=== PATIENT | male | born 1955 | race Caucasian/White ===

== ENCOUNTER 2017-12-22 11:20 | Emergency (ER) | payer OTHER ==
--- NOTE | 2017-12-22 12:23 | UC ---
Skin Complaint HPI - HPI Summary HPI Summary: 62 yo male presents with cat bite to left index finger. He tells me that he was bitten last night by his cat when trying to move boxes around the house. Today noticed swelling and redness on the finger. Cat is UTD on vaccines. Pt believes his tetanus was within the last 10 years. Denies fever, chills, numbness, tingling. - History of Current Complaint Time Seen by Provider: 12/22/17 12:23 Stated Complaint: CAT BITE Hx Obtained From: Patient Onset/Duration: Sudden Onset Skin Exposure Onset/Duration: Hours Ago Timing: Constant Onset Severity: Mild Current Severity: Mild Pain Intensity: 3 Pain Scale Used: 0-10 Numeric - Allergy/Home Medications Allergies/Adverse Reactions: Allergies Allergy/AdvReac Type Severity Reaction Status Date / Time No Known Allergies Allergy Verified 12/22/17 12:33 Home Medications: Home Medications Naproxen Sodium [Naproxen 220 mg] 220 mg PO ONCE PRN 12/22/17 [History Confirmed 12/22/17] Rosuvastatin Calcium [Crestor] 20 mg PO BEDTIME 12/22/17 [History Confirmed ] Review of Systems Constitutional: Negative Skin: Other - Cat bite left index finger Respiratory: Negative Cardiovascular: Negative Neurovascular: Negative Musculoskeletal: Negative Neurological: Negative Psychological: Negative All Other Systems Reviewed And Are Negative: Yes PMH/Surg Hx/FS Hx/Imm Hx Previously Healthy: Yes Endocrine History: Dyslipidemia Cardiovascular History: Hypertension Respiratory History: COPD, Asthma - Surgical History Surgical History: Yes Surgery Procedure, Year, and Place: SPINAL FUSION C5,6. 2 SINUS SX. FX R HAND. VASECTOMY - Family History Known Family History: Positive: Cardiac Disease - Social History Occupation: Employed Full-time Lives: With Family Alcohol Use: "one to two ... nightly" Substance Use Type: None Smoking Status (MU): Never Smoked Tobacco Physical Exam - Summary Physical Exam Summary: GENERAL: NAD. WDWN. No pain distress. SKIN: Left index finger: at the DIP there are 3 small puncture wounds with moderate edema and mild erythema. Mild TTP. No streaking, bleeding, or drainage. NECK: Supple. Nontender. No lymphadenopathy. CHEST: No accessory muscle use. Breathing comfortably and in no distress. CV: RRR. Without m/r/g. MSK: Left index finger: FROM. NEURO: Alert. CN II-XII grossly intact. PSYCH: Age appropriate behavior. Triage Information Reviewed: Yes Course/Dx - Course Course Of Treatment: Cat bite left index finger. Rx for augmentin. Warm soaks and apply ice - Diagnoses Provider Diagnoses: Cat bite left index finger Discharge - Sign-Out/Discharge Documenting (check all that apply): Discharge/Admit/Transfer - Discharge Plan Condition: Stable Disposition: HOME Prescriptions: Amoxicillin/Clavulanate TAB* [Augmentin TAB 875*] 875 mg PO BID #14 tab Patient Education Materials: Animal Bite (ED) Referrals: Mauri Randhawa MD [Primary Care Provider] - Additional Instructions: If you develop a fever, shortness of breath, chest pain, new or worsening symptoms - please call your PCP or go to the ED. 1) If you notice the swelling or redness of your finger worsen - please call or return to the Urgent Care. - Billing Disposition and Condition Condition: STABLE Disposition: HOME
[2017-12-22 12:33] VITALS: BP 122/61
== END 2017-12-22 12:50 | disposition home or self-care (01) ==
LOC: UCCORT 11:20
DX: S61.251A Open bite of left index finger without damage to nail, initial encounter (principal); W55.01XA Bitten by cat, initial encounter; Y93.9 Activity, unspecified; Y92.9 Unspecified place or not applicable; I10 Essential (primary) hypertension; E78.5 Hyperlipidemia, unspecified
CPT/HCPCS: 99212; G0463

== ENCOUNTER 2018-04-21 09:21 | Emergency (ER) | payer OTHER ==
--- OUTSIDE RECORDS SUMMARY | 2018-04-21 09:45 | XMS REPORT | Continuity of Care Document ---
:1955 External Reference #:[id number] Author Name Myrtle Toure Care Team Providers Name Role Phone Mauri Randhawa MD Primary Care Physician Unavailable Payers Type Date Identification Numbers Payment Provider Subscriber Policy Number: [id number] [employer] Number: [id number] [address] PayID: [id number] [place] [address] Advance Directives Description No Information Available Problems Date Description Provider Status Onset: 05/16/2011 Hyperlipidemia Mauri Randhawa MD Active Onset: 05/16/2011 Disorders of initiating and maintaining Mauri Randhawa MD Active sleep Onset: 05/16/2011 Impotence of organic origin Mauri Randhawa MD Active Onset: 05/16/2011 Mitral valve disorder Mauri Randhawa MD Active Onset: 05/16/2011 Gastroesophageal reflux disease Mauri Randhawa MD Active Onset: 05/16/2011 Anxiety state Mauri Randhawa MD Active Onset: 05/16/2011 Acute bronchitis Mauri Randhawa MD Active Onset: 05/16/2011 Common cold Mauri Randhawa MD Active Onset: 05/16/2011 Needs influenza immunization Mauri Randhawa MD Active Onset: 05/16/2011 Neck pain Mauri Randhawa MD Active Onset: 05/16/2011 Extrinsic asthma without status Mauri Randhawa MD Active asthmaticus Onset: 05/16/2011 Lateral epicondylitis Grace Randhawa M.D. Active Onset: 05/16/2011 Carotid artery occlusion Mauri Randhawa MD Active Onset: 05/16/2011 Acute bronchitis Mauri Randhawa MD Active Onset: 05/16/2011 Palpitations Mauir Randhawa MD Active Onset: 05/16/2011 Pneumonia Mauri Randhawa MD Active Onset: 05/16/2011 General Mauri Randhawa MD Active Onset: 05/16/2011 Allergic rhinitis Mauri Randhawa MD Active Onset: 05/16/2011 Conduction disorder of the heart Mauri Randhawa MD Active Onset: 05/16/2011 Tenosynovitis of hand Mauri Randhawa MD Active Onset: 05/16/2011 Cough Mauri Randhawa MD Active Onset: 05/16/2011 Angina pectoris Mauri Randhawa MD Active Onset: 05/16/2011 Asthma without status asthmaticus Mauri Randhawa MD Active Onset: 05/16/2011 Otitis media Mauri Randhawa MD Active Onset: 05/16/2011 Chronic sinusitis Mauri Randhawa MD Active Onset: 05/16/2011 Dyspnea Mauri Randhawa MD Active Onset: 05/16/2011 Multiple joint pain Mauri Randhawa MD Active Onset: 05/16/2011 Exacerbation of asthma Mauri Randhawa MD Active Onset: 05/16/2011 Neuralgia Neuritis & Radiculitis Active Unspecified Onset: 05/16/2011 Pure hypercholesterolemia Active Onset: 05/16/2011 Breathing painful Active Onset: 05/17/2016 Mild persistent asthma Grace Randhawa M.D. Active Family History Date Family Member(s) Problem(s) Comments General Father NE in his 40's , mother pvd Father NE Father due to Heart Disease () Mother Anxiety Mother Arteriosclerosis Mother Hypertension Mother Hyperlipidemia Mother Heart Disease Social History Type Date Description Comments Sex Unknown Marital Status Tobacco Use Start: Unknown Never Smoked Cigarettes ETOH Use Consumes 4 beers per day Recreational Drug Use Denies Drug Use Tobacco Use Start: Unknown End: Patient is a former smoker Unknown Recreational Drug Use Never Used Drugs Smoking Status Reviewed: 05/17/16 Patient is a former smoker Seat Belt/Car Seat Always uses a seat belt Currently Active The patient is currently sexually active Allergies, Adverse Reactions, Alerts Date Description Reaction Status Severity Comments 04/10/2018 Pneumococcal Capsular localized pain and Active Moderate Polysaccharide Type 22F swelling Vaccine 09/06/2005 NKDA Inactive Medications Medication Date Status Form Strength Qnty SIG Indications Ordering Provider Pro HFA 05/17 Active Aerosol 108(90Bas 1unit 2 Puffs PO Q e) s 4HR prn lexie Randhawa/Act M.D. Omeprazole 03/[address] 20mg 180ca take 2 K21.9 Mauri F. ps capsules by MD [place] mouth daily for gastroesophag eal reflux disease Multivitamins 10/22 Active Tablets 100ta 1 po qd Mauri F. /2012 bs MD [place] Vitamin D 02/24 Active Capsules 1000Unit 100ca 1 po qd 268.9 Mauri F. /2011 ps MD [place] Calcium 600 + 02/24 Active Tablets 600-400mg 200ta 1 po bid 268.9 Mauri F. D -Unit margarette Randhawa MD Cialis 10/25 Active Tablets 20mg 24tab one by mouth N52.01 Mauri F. /2008 s prn MD [place] Lunesta 04/16 Active Tablets 3mg 30tab 1 by mouth Mauri F. /2005 s every night MD [place] at bedtime as needed Crestor Active Tablets 40mg 90tab tab 1 by Mauri FJohn /0000 s mouth every MD [place] evening Azithromycin 08/11 Hx Tablets 250mg 6tabs 2 by mouth today, 1 by [place] - mouth day 2 M.D. 05/17 thru Omeprazole 11/[address] 20mg 90cap 1 by mouth 530.81 Mauri FJohn /2014 s every day MD [place] - 03/15 Prozac 08/04 Hx Capsules 20mg 90cap 1 po qd F32.9 s Eran Randhawa M.D. 05/17 Fiber Complete 12/30 Hx Tablets 100ta 1 by mouth 455.6 Mauri FJohn /2013 bs three times a MD [place] - day with 8 oz 01/28 Colace 12/30 Hx Capsules 100mg 100ca 2 po qd 455.6 Mauri FJohn /2013 ps MD [place] - 01/28 Clotrimazole/B 02/17 Hx Cream 1-0.05% 45gm apply bid 110.3 Mauri F. etamethasone /2012 MD [place] Dipropionate - 06/09 Proair HFA 10/22 Hx Aerosol 108(90Bas 1unit 2 Puffs PO Q Mauri F. e) s 4HR prn MD [place] - mcg/Act 06/09 Soma 06/11 Hx Tablets 350mg 30tab 1 po bid Mauri F. /2011 s MD [place] - 10/22 Hydrocodone/Ac 06/11 Hx Tablets 5-325mg 60tab tab1 poq 6 hr Mauri F. etaminophen s prn painSydnee MD - 10/22 Tramadol HCL 06/11 Hx Tablets 50mg 56tab 1 po q 6 724.50 Mauri F. /2011 s hours prn MD [place] - pain 10/22 Erythromycin 10/30 Hx Tablets 500mg 20tab 1 po bid 466.0 Mauri F. s MD [place] - 05/16 Omeprazole 06/[address] 20mg 90cap 1 by mouth 530.81 Mauri F. /2009 s every day as MD [place] - needed 11/15 Veramyst 06/13 Hx Suspension 27.5mcg/S 3unit 1 spray each Mauri F. /2009 pray s nostril q day MD [place] - 06/09 E.E.S. 400 12/12 Hx Tablets 400mg 20tab 1 po bid 460.00 Mauri F. /2009 s MD [place] - 12/23 Proair HFA 08/22 Hx Aerosol 108(90Bas 3unit 2 Puffs PO Q Mauri F. e) mcg/ac s 4HR prn MD [place] - 10/22 Albuterol 07/13 Hx Nebulizer (2.5mg/3M 120un Inhale qid Mauri F. Sulfate /2008 L) 0.083% dwight Randhawa MD - 08/22 Albuterol 07/11 Hx Nebulizer (5mg/ML) 100un 1 Q 4HR prn Mauri F. Sulfate /2008 0.5% dwight Randhawa MD - 07/13 Advair Diskus 06/27 Hx Misc 250-50mcg 3Mont 1 puff bid Mauri F. /2008 /DO hs MD [place] - 02/13 Levaquin 06/21 Hx Tablets 500mg 10tab 1 po qd Mauri F. /2008 tio Randhawa MD - 08/22 Prednisone 06/21 Hx Tablets 20mg 21tab 2 po qday for 486 Mauri F. /2008 s 1 week then 1 MD [place] - po qday 08/22 Robitussin 06/21 Hx Liquid 16Oz one 486 Mauri F. With Codeine /2008 tablespoon devang Randhawa MD - qhs prn cough 08/22 Diflucan 06/21 Hx Tablets 200mg 7tabs 1 po qd 486 Mauri F. /2008 MD [place] - 08/22 Prozac 08/23 Hx Capsules 20mg 90cap 1 PO qd Mauri F. /2008 tio Randhawa MD - 06/09 Cialis 07/20 Hx Tablets 10mg 24tab 1 PO as 607.84 Mauri F. /2007 s Tiesha Randhawa MD - 10/25 Prozac 07/20 Hx Capsules 10mg 60cap 1 PO qd Mauri F. /2007 tio Randhawa MD - 08/23 Cialis 05/25 Hx Tablets 5mg 30tab 1 po q day 607.84 Mauri F. /2007 tio Randhawa MD - 07/20 Cialis 05/11 Hx Tablets 10mg 1/2 PO Q Day 607.84 Mauri F. /2007 as Tiesha Randhawa MD - 05/25 Naprosyn 03/09 Hx Tablets 375mg 50tab 1 PO bid prn 727.05 Mauri F. /2007 tio Randhawa MD - 07/20 Augmentin 07/18 Hx Tablets 875mg;125 14tab 1 po bid with 466.00 Grace /2005 mg s Eran Mcconnell M.D. 07/27 Levaquin 09/28 Hx Tablets 500mg 3tabs 1 po qd Elyn /2005 MD Kim - 04/16 Pce 09/25 Hx Tablets 500mg 20tab One PO bid X 466.00 Mauri F. /2005 s 10Days MD [place] - 04/16 Robitussin 09/25 Hx Liquid 16Oz one 466.00 Mauri F. With Codeine tablespoon po MD [place] - qhs prn cough 04/16 Albuterol 09/06 Hx Aerosol 90mcg/Dos 6unit 2 puff qid Mauri F. Inhalation /2005 juan Randhawa MD - 12/20 Lipitor 09/06 Hx Tablets 80mg 40tab /2 by mouth s every day Eran Randhawa M.D. 01/28 Benadryl 09/06 Hx Capsules 25mg 100ca 1 PO prn as Mauri F. /2005 ps Directed MD [place] - 09/11 Advair Diskus 09/06 Hx Inhaler 500mcg;50 6unit 1 puff bid Mauri F. /2005 mcg tio Randhawa MD - 12/20 Cialis 09/06 Hx Tablets 20mg 6tabs one po prn AD Mauri F. /2006 MD [place] - 12/20 Cialis Hx Tablets 20mg 18tab one po prn AD Mauri F. /0000 tio Randhawa MD - 05/11 Albuterol 00 Hx Aerosol 90mcg/Dos 2unit 2 puff qid Mauri F. Inhalation /0000 juan Randhawa MD - 05/11 Advair Diskus 00 Hx Inhaler 500mcg;50 6unit 1 puff bid Grace /0000 Eran Cole M.D. 08/27 Proventil HFA 00/ Hx Aerosol 108mcg/Ac 6unit 2 Puffs qid Mauri F. /0000 t s vira Randhawa MD - 08/22 Medications Administered in Office Medication Date Status Form Strength Qnty SIG Indications Ordering Provider H1N1 Administered Injection Nurse Administration 010 -Use Immunizations CPT Code Status Date Vaccine Lot # [id number] Given 04/08/2018 Influenza Virus (Afluria) Split Virus 3 Years [id number] Of Age And Older 43058 Given 04/08/2018 [place] [address] Given 04/08/2018 Influenza Virus Vaccine, Quadrivalent, Split, Preservative Free 59981 Given 04/08/2018 Pneumococcal Conjugate Vaccine 13 Valent For Intramuscular Use [id number] Given 05/17/2016 Influenza Vaccine (Fluvirin) 3 Years Of Age [place] [id number] Older Q2035 Given 04/19/2015 Influenza Virus (Afluria) Split Virus 3 Years [id number] Of Age And Older Q2037 Given 05/11/2014 Influenza Vaccine (Fluvirin) 3 Years Of Age Or Older [id number] Given 06/09/2013 Influenza Vaccine (Fluvirin) 3 Years Of Age Or Older [id number] Given 08/07/2012 Influenza Vaccine (Fluvirin) 3 Years Of Age Or Older Q2036 Given 05/16/2011 Flulaval [id number] Given 06/13/2010 Influenza Vaccine 59123 Given 08/22/2009 Tetanus Shot [id number] 23944 Given 04/20/2009 Influenza Vaccine [id number] 51782 Given 05/11/2008 Influenza Vaccine 46202 Given 08/08/2004 Influenza Vaccine 08651 Given 07/29/2004 Influenza Vaccine 79703 Given 09/26/1998 DT Immunization DIP/Tet (History Only) Vital Signs Date Vital Result Comment 04/08/2018 2:00pm BP Systolic 142 mmHg BP Diastolic 70 mmHg Heart Rate 72 /min Height 67 inches 5'7" Weight 167.00 lb BMI (Body Mass Index) 26.2 kg/m2 O2 % BldC Oximetry 98 % 01/28/2018 3:07pm BP Systolic 128 mmHg BP Diastolic 60 mmHg Height 67 inches 5'7" Weight 168.00 lb BMI (Body Mass Index) 26.3 kg/m2 05/17/2016 11:33am BP Systolic 128 mmHg BP Diastolic 60 mmHg Height 67 inches 5'7" Weight 178.00 lb BMI (Body Mass Index) 27.9 kg/m2 10/20/2015 2:02pm BP Systolic 138 mmHg BP Diastolic 80 mmHg 08/10/2015 10:50am BP Systolic 136 mmHg BP Diastolic 78 mmHg Body Temperature 96.5 F 05/18/2015 11:56am BP Systolic 120 mmHg BP Diastolic 64 mmHg Height 67 inches 5'7" Weight 183.00 lb BMI (Body Mass Index) 28.7 kg/m2 04/19/2015 11:20am BP Systolic 132 mmHg BP Diastolic 64 mmHg Height 67 inches 5'7" Weight 184.00 lb BMI (Body Mass Index) 28.8 kg/m2 03/15/2015 1:45pm BP Systolic 132 mmHg BP Diastolic 60 mmHg 11/15/2014 10:51am BP Systolic 136 mmHg BP Diastolic 62 mmHg Height 67 inches 5'7" Weight 175.00 lb BMI (Body Mass Index) 27.4 kg/m2 09/06/2014 3:05pm BP Systolic 138 mmHg BP Diastolic 72 mmHg 08/04/2014 11:01am BP Systolic 134 mmHg BP Diastolic 70 mmHg 05/11/2014 10:48am BP Systolic 138 mmHg BP Diastolic 72 mmHg Height 68 inches 5'8" Weight 178.00 lb BMI (Body Mass Index) 27.1 kg/m2 02/09/2014 11:52am BP Systolic 130 mmHg BP Diastolic 64 mmHg Height 68 inches 5'8" Weight 179.00 lb BMI (Body Mass Index) 27.2 kg/m2 12/30/2013 10:55am BP Systolic 110 mmHg BP Diastolic 60 mmHg 10/05/2013 10:26am BP Systolic 130 mmHg BP Diastolic 72 mmHg Height 68 inches 5'8" Weight 169.00 lb BMI (Body Mass Index) 25.7 kg/m2 06/09/2013 3:17pm BP Systolic 112 mmHg BP Diastolic 58 mmHg Height 68 inches 5'8" Weight 175.00 lb BMI (Body Mass Index) 26.6 kg/m2 02/17/2013 3:11pm BP Systolic 112 mmHg BP Diastolic 60 mmHg Height 68 inches 5'8" 02/10/2013 10:15am BP Systolic 130 mmHg BP Diastolic 60 mmHg Height 68 inches 5'8" Weight 173.00 lb BMI (Body Mass Index) 26.3 kg/m2 10/22/2012 10:54am BP Systolic 112 mmHg BP Diastolic 60 mmHg Height 68 inches 5'8" Weight 180.00 lb BMI (Body Mass Index) 27.4 kg/m2 08/11/2012 3:51pm BP Systolic 130 mmHg BP Diastolic 70 mmHg Height 68 inches 5'8" 06/11/2012 10:53am BP Systolic 124 mmHg BP Diastolic 60 mmHg Height 68 inches 5'8" Weight 177.00 lb BMI (Body Mass Index) 26.9 kg/m2 02/25/2012 2:28pm BP Systolic 138 mmHg BP Diastolic 76 mmHg Height 68 inches 5'8" Weight 174.00 lb BMI (Body Mass Index) 26.5 kg/m2 05/16/2011 10:07am BP Systolic 132 mmHg BP Diastolic 84 mmHg Height 68 inches 5'8" Weight 171.00 lb BMI (Body Mass Index) 26.0 kg/m2 10/30/2010 3:06pm BP Systolic 189 mmHg BP Diastolic 68 mmHg Body Temperature 97.8 F Height 68 inches 5'8" Weight 167.00 lb BMI (Body Mass Index) 25.4 kg/m2 08/01/2010 3:51pm BP Systolic 110 mmHg BP Diastolic 60 mmHg Height 68 inches 5'8" Weight 178.00 lb BMI (Body Mass Index) 27.1 kg/m2 06/13/2010 10:04am BP Systolic 122 mmHg BP Diastolic 64 mmHg Body Temperature 98.2 F Height 68 inches 5'8" Weight 177.00 lb BMI (Body Mass Index) 26.9 kg/m2 02/13/2010 10:48am BP Systolic 118 mmHg BP Diastolic 64 mmHg Height 68 inches 5'8" Weight 175.00 lb BMI (Body Mass Index) 26.6 kg/m2 12/23/2009 10:30am BP Systolic 148 mmHg BP Diastolic 74 mmHg Weight 177.00 lb 12/12/2009 11:31am BP Systolic 124 mmHg BP Diastolic 68 mmHg Body Temperature 98.4 F Height 68 inches 5'8" Weight 177.00 lb BMI (Body Mass Index) 26.9 kg/m2 08/22/2009 10:26am BP Systolic 116 mmHg BP Diastolic 64 mmHg Height 68 inches 5'8" Weight 179.00 lb BMI (Body Mass Index) 27.2 kg/m2 06/27/2009 3:06pm BP Systolic 130 mmHg BP Diastolic 72 mmHg Body Temperature 97.5 F 06/21/2009 12:17pm BP Systolic 124 mmHg BP Diastolic 60 mmHg Body Temperature 99.0 F Height 68 inches 5'8" Weight 176.00 lb BMI (Body Mass Index) 26.8 kg/m2 02/21/2009 3:03pm BP Systolic 110 mmHg BP Diastolic 50 mmHg Height 68 inches 5'8" Weight 172.00 lb BMI (Body Mass Index) 26.1 kg/m2 10/25/2008 3:05pm BP Systolic 108 mmHg BP Diastolic 56 mmHg Height 68 inches 5'8" Weight 172.00 lb BMI (Body Mass Index) 26.1 kg/m2 08/23/2008 10:03am BP Systolic 124 mmHg BP Diastolic 70 mmHg Height 68 inches 5'8" Weight 173.00 lb BMI (Body Mass Index) 26.3 kg/m2 07/20/2008 3:32pm BP Systolic 122 mmHg BP Diastolic 64 mmHg Height 68 inches 5'8" Weight 170.00 lb BMI (Body Mass Index) 25.8 kg/m2 05/25/2008 3:14pm BP Systolic 126 mmHg BP Diastolic 78 mmHg Height 68 inches 5'8" 05/11/2008 3:38pm BP Systolic 118 mmHg BP Diastolic 68 mmHg Height 68 inches 5'8" Weight 168.00 lb BMI (Body Mass Index) 25.5 kg/m2 03/09/2008 3:11pm BP Systolic 110 mmHg BP Diastolic 76 mmHg Height 68 inches 5'8" 11/03/2007 2:40pm BP Systolic 116 mmHg BP Diastolic 68 mmHg Height 68 inches 5'8" Weight 168.00 lb BMI (Body Mass Index) 25.5 kg/m2 03/03/2007 3:08pm BP Systolic 134 mmHg BP Diastolic 76 mmHg Height 68 inches 5'8" Weight 166.00 lb BMI (Body Mass Index) 25.2 kg/m2 08/27/2006 10:21am BP Systolic 122 mmHg BP Diastolic 68 mmHg Height 68 inches 5'8" Weight 165.00 lb BMI (Body Mass Index) 25.1 kg/m2 07/18/2006 11:08am BP Systolic 118 mmHg BP Diastolic 70 mmHg Body Temperature 96.9 F Height 68 inches 5'8" 04/16/2006 11:55am BP Systolic 110 mmHg BP Diastolic 68 mmHg Height 68 inches 5'8" Weight 167.00 lb BMI (Body Mass Index) 25.4 kg/m2 09/25/2005 12:07pm BP Systolic 112 mmHg BP Diastolic 64 mmHg Body Temperature 98.1 F Height 68 inches 5'8" 09/11/2005 10:31am BP Systolic 126 mmHg BP Diastolic 70 mmHg Height 68 inches 5'8" Weight 172.00 lb BMI (Body Mass Index) 26.1 kg/m2 Results Test Date Facility Test Result H/L Range Note Lipid Panel 04/02/2018 [facility] Cholesterol 163 mg/dL <199 1 [address] [place] [address] [phone] HDL Cholesterol 68 mg/dL >40 Cholesterol/HDL Ratio 2.4 CALC <5.0 LDL Chol,Calculated 81 mg/dL 0-100 2 Triglycerides 59 mg/dL <150 Non-HDL Cholesterol 95 mg/dL <130 3 Lipid Panel 02/07/2018 [facility] Cholesterol 149 mg/dL <[address] [place] [address] [phone] HDL Cholesterol 66 mg/dL >40 Cholesterol/HDL Ratio 2.3 CALC <5.0 LDL Chol,Calculated 67 mg/dL 0-100 4 Triglycerides 75 mg/dL <150 Non-HDL Cholesterol 83 mg/dL <130 5 Hepatic Function 05/13/2015 [facility] Alkaline Phosphatase 50 U/L 40- [address] [place] [address] [phone] Ast 32 U/L 10-35 Alt 52 U/L High 9-46 Bilirubin,Total 0.7 mg/dL 0.2-1.2 Bilirubin,Direct 0.1 mg/dL < Or=0.2 Protein,Total 7.1 g/dL 6.1-8.1 Albumin 4.7 g/dL 3.6-5.1 Globulin,Calculated 2.4 g/dL 1.9-3.7 A/G Ratio 1.9 1.0-2.5 Laboratory 05/13/2015 [facility] Vitamin 31 30-100 6 test finding [address] D,25-Hydroxy,Total,Immunoassay NG/[place] [address] [phone] CMP W/O Egfr 03/21/2015 [facility] Sodium 136 135-[address] mmol/[place] [address] [phone] Potassium 3.7 mmol/L 3.5-5.3 Chloride 100 mmol/L 98-110 Carbon Dioxide 22 mmol/L 19-30 Calcium 9.4 mg/dL 8.6-10.3 Alkaline Phosphatase 49 U/L 40-115 Ast 35 U/L 10-35 Alt 58 U/L High 9-46 Bilirubin,Total 0.8 mg/dL 0.2-1.2 Glucose 111 mg/dL High 65-99 7 Urea Nitrogen 13 mg/dL 7-25 Creatinine 0.94 mg/dL 0.70-1.33 8 BUN/Creatinine Ratio 14.3 6-22 Protein,Total 7.4 g/dL 6.1-8.1 Albumin 4.5 g/dL 3.6-5.1 Globulin,Calculated 2.9 g/dL 1.9-3.7 A/G Ratio 1.6 1.0-2.5 Lipid Panel 03/21/2015 [facility] Cholesterol 217 mg/dL High 125-200 [address] [facility] [place], [place] [id number] [phone] HDL Cholesterol 55 mg/dL > Or=40 Cholesterol/HDL Ratio 3.9 < Or=5.0 LDL Chol,Calculated 113 mg/dL <130 9 Triglycerides 247 mg/dL High <150 Non-HDL Cholesterol 162 mg/dL High 10 TSH & T4,Free 03/21/2015 [facility] TSH 2.00 mIU/L 0.40-4.50 6 [place] [address] [phone] T4,Free 1.1 ng/dL 0.8-1.8 CBC W/ Diff & PLT 03/21/2015 [facility] WBC 4.9 thous/L 3.8-10.8 6 [place] [address] [phone] RBC 4.84 mill/L 4.20-5.80 Hemoglobin 15.4 g/dL 13.2-17.1 Hematocrit 45.4 % 38.5-50.0 MCV 93.7 FL 80.0-100.0 MCH 31.9 pg 27.0-33.0 MCHC 34.0 g/dL 32.0-36.0 RDW 12.5 % 11.0-15.0 Platelet Count 194 thous/L 140-400 Platelet Sufficiency PENDING MPV 8.0 FL 7.5-11.5 Neutrophils,Absolute 3040 cells/L 2692-1517 Bands,Absolute PENDING Metamyelocytes,Absolute PENDING Myelocytes,Absolute PENDING Promyelocytes,Absolute PENDING Lymphocytes,Absolute 1330 cells/L 850-3900 Monocytes,Absolute 420 cells/L 200-950 Eosinophils,Absolute 100 cells/L 15-500 Basophils,Absolute 20 cells/L 0-200 Blast Cells,Absolute PENDING Nucleated RBC,Absolute PENDING Total Neutrophils,% 62 % Not Established Bands,% PENDING Metamyelocytes,% PENDING Myelocytes,% PENDING Promyelocytes,% PENDING Total Lymphocytes,% 27 % Not Established Monocytes,% 9 % Not Established Eosinophils,% 2 % Not Established Basophils,% 0 % Not Established Blasts,% PENDING Nucleated RBC PENDING RBC Morphology PENDING Anisocytosis PENDING Poikilocytosis PENDING Microcytosis PENDING Macrocytosis PENDING Polychromasia PENDING Hypochromasia PENDING Target Cells PENDING Basophilic Stippling PENDING Comment PENDING Amylase & Lipase 03/21/2015 [facility] Amylase,Serum 62 U/L 21-[address] [place], [place] [id number] [phone] Lipase,Serum 36 U/L 7-60 Laboratory 03/21/2015 [facility] Testosterone,Total,LC/MS/MS 341 250- 1100 11 test finding [address] ng/[place] [address] [phone] PSA,Total 0.3 NG/ML 0.0-4.0 12 Lipid Panel 11/05/2014 [facility] Cholesterol 197 mg/dL 125-[address] [place] [address] [phone] HDL Cholesterol 64 mg/dL > Or=40 Cholesterol/HDL Ratio 3.1 < Or=5.0 LDL Chol,Calculated 108 mg/dL <130 13 Triglycerides 123 mg/dL <150 Non-HDL Cholesterol 134 mg/dL 14 Lipid Panel 05/06/2014 [facility] Cholesterol 189 mg/dL 125-[address] [place] [address] [phone] HDL Cholesterol 61 mg/dL > Or=40 Cholesterol/HDL Ratio 3.1 < Or=5.0 LDL Chol,Calculated 97 mg/dL <130 15 Triglycerides 153 mg/dL High <150 Non-HDL Cholesterol 128 mg/dL 16 Laboratory test 05/06/2014 [facility] Magnesium 2.0 mg/dL 1.5-2.[address] [place] [address] [phone] Laboratory test 02/05/2014 [facility] Magnesium 1.9 mg/dL 1.5-2.[address] [place] [address] [phone] Lipid Panel 02/05/2014 [facility] Cholesterol 203 mg/dL High 125-[address] [place] [address] [phone] HDL Cholesterol 58 mg/dL > Or=40 Triglycerides 179 mg/dL High <150 Non-HDL Cholesterol 146 mg/dL 17 Cholesterol/HDL Ratio 3.5 < Or=5.0 LDL Chol,Calculated 109 mg/dL <130 18 Laboratory 02/05/2014 [facility] Glucose,Random,Plasma 105 <140 test finding [address] mg/[place] [address] [phone] Laboratory 09/24/2013 [facility] PSA,Total 0.3 0.0-4.0 19 test finding [address] [place] NG/[place] [address] [phone] Testosterone,Total,LC/MS/MS 389 ng/dL 250-1100 20 Comp Metabolic Panel 09/24/2013 [facility] Sodium 141 mmol/L 135-[address] [place] [address] [phone] Potassium 4.2 mmol/L 3.5-5.3 Chloride 105 mmol/L 98-110 Carbon Dioxide 26 mmol/L 19-30 Calcium 9.6 mg/dL 8.6-10.3 Alkaline Phosphatase 51 U/L 40-115 Ast 33 U/L 10-35 Alt 45 U/L 9-46 Bilirubin,Total 0.5 mg/dL 0.2-1.2 Glucose 100 mg/dL High 65-99 21 Urea Nitrogen 15 mg/dL 7-25 Creatinine 1.01 mg/dL 0.70-1.33 22 BUN/Creatinine Ratio 15.0 6-22 Protein,Total 7.1 g/dL 6.1-8.1 Albumin 4.9 g/dL 3.6-5.1 Globulin,Calculated 2.2 g/dL 1.9-3.7 A/G Ratio 2.2 1.0-2.5 Egfr Non-Afr. [place] 82 ML/MIN/1.73M2 > Or=60 Egfr 95 ML/MIN/1.73M2 > Or=60 Lipid Panel 09/24/2013 [facility] Cholesterol 176 mg/dL 125-[address] [place] [address] [phone] HDL Cholesterol 57 mg/dL > Or=40 Cholesterol/HDL Ratio 3.1 < Or=5.0 LDL Chol,Calculated 96 mg/dL <130 23 Triglycerides 117 mg/dL <150 Non-HDL Cholesterol 119 mg/dL 24 CBC W/ Diff & PLT 09/24/2013 [facility] WBC 5.5 thous/L 3.8-10.8 [address] [place] [id number] [phone] RBC 4.97 mill/L 4.20-5.80 Hemoglobin 15.4 g/dL 13.2-17.1 Hematocrit 45.3 % 38.5-50.0 MCV 91.2 FL 80.0-100.0 MCH 30.9 pg 27.0-33.0 MCHC 33.9 g/dL 32.0-36.0 RDW 12.8 % 11.0-15.0 Platelet Count 223 thous/L 140-400 Neutrophils,Absolute 3110 cells/L 8166-2150 Lymphocytes,Absolute 1740 cells/L 850-3900 Monocytes,Absolute 450 cells/L 200-950 Eosinophils,Absolute 150 cells/L 15-500 Basophils,Absolute 30 cells/L 0-200 Total Neutrophils,% 57 % Not Established Total Lymphocytes,% 32 % Not Established Monocytes,% 8 % Not Established Eosinophils,% 3 % Not Established Basophils,% 0 % Not Established TSH & T4,Free 09/24/2013 [facility] TSH 1.61 mIU/L 0.40-4.50 [address] [facility]. [place], [place] [id number] [phone] T4,Free 1.1 ng/dL 0.8-1.8 Lipid Panel 06/04/2013 [facility] Cholesterol 178 mg/dL 125-200 [address] [facility]. [place], [place] [id number] [phone] HDL Cholesterol 68 mg/dL > Or=40 Cholesterol/HDL Ratio 2.6 < Or=5.0 LDL Chol,Calculated 89 mg/dL <130 25 Triglycerides 103 mg/dL <150 Non-HDL Cholesterol 110 mg/dL 26 Hepatic Function 06/04/2013 [facility] Alkaline Phosphatase 46 U/L 40- 115 [facility] [address] [facility] [place] [address] [phone] Ast 27 U/L 10-35 Alt 38 U/L 9-46 Bilirubin,Total 0.4 mg/dL 0.2-1.2 Bilirubin,Direct 0.1 mg/dL < Or=0.2 Protein,Total 7.0 g/dL 6.1-8.1 Albumin 4.6 g/dL 3.6-5.1 Globulin,Calculated 2.4 g/dL 1.9-3.7 A/G Ratio 1.9 1.0-2.5 Laboratory test 02/06/2013 [facility] Direct LDL 88 mg/dL <130 [address] [place] [address] [phone] Hepatic Function 02/06/2013 [facility] Alkaline 47 U/L 40-[address] [address] [phone] Ast 32 U/L 10-35 Alt 37 U/L 9-46 Bilirubin,Total 0.6 mg/dL 0.2-1.2 Bilirubin,Direct 0.1 mg/dL < Or=0.2 Protein,Total 6.9 g/dL 6.1-8.1 Albumin 4.5 g/dL 3.6-5.1 Globulin,Calculated 2.4 g/dL 1.9-3.7 A/G Ratio 1.9 1.0-2.5 Basic Metabolic Panel 11/25/2012 [facility] Glucose 94 mg/dL 76-[address] [place] [address] [phone] BUN 16 mg/dL 5-23 Creatinine 0.8 mg/dL 0.5-1.4 Glom Filtration Rate, Estimate >60 mL/min >60 If >60 mL/min >60 28 BUN/Creat 20.0 ratio Sodium 140 mmol/L 136-145 Potassium 4.2 mmol/L 3.5-5.1 Chloride 105 mmol/L 98-107 Carbon Dioxide 27 mEq/L 18-29 Anion Gap 12 mEq/L 8-16 Calcium 8.9 mg/dL 8.5-10.1 CBC 11/25/2012 [facility] White Blood Count 4.9 K/uL 3.4-10.[address] [place] [address] [phone] Red Blood Count 4.79 M/uL 4.20-5.80 Hemoglobin 15.2 gm/dL 12.8-17.0 Hematocrit 44.5 % 38.0-48.0 Mean Cell Volume 92.9 fl 80.0-96.0 Mean Corpuscular HGB 31.7 pg 27.0-33.0 Mean Corpuscular HGB Conc 34.2 g/dL 31.7-36.0 Platelet Count 198 K/uL 150-400 Red Cell Distri Width %CV 11.8 % 11.6-15.8 Mean Platelet Volume 9.8 fL 6.6-10.6 Urine Screen 11/25/2012 [facility] Urine Color YELLOW Yellow [address] [place] [address] [phone] Urine Clarity CLEAR Clear Urine Glucose - Dipstick NEGATIVE mg/dL Negative Urine Bilirubin - Dipstick NEGATIVE Negative Urine Ketone NEGATIVE mg/dL Negative Urine Specific [place] 1.010 1.010-1.030 Urine Blood NEGATIVE Negative Urine PH 6.0 Low 6.5-7.5 Urine Protein - Dipstick NEGATIVE mg/dL Negative Urine Urobilinogen - Dipstick 0.2 E.U./dL 0.2-1.0 Urine Nitrite - Dipstick NEGATIVE Negative Urine Leuk Esterase NEGATIVE Negative Laboratory test 08/13/2012 [facility] Calcium 8.9 mg/dL 8.6-10.[address] [place] [address] [phone] Laboratory test 08/13/2012 [facility] Magnesium 1.8 mg/dL 1.5-2.[address] [place] [address] [phone] TSH 1.33 mIU/L 0.40-4.50 T4,Free 1.1 ng/dL 0.8-1.8 29 PSA,Total 0.3 NG/ML 0.0-4.0 30 Basic Metabolic Panel 08/13/2012 [facility] Sodium 136 mmol/L 135-[address] [place] [address] [phone] Potassium 4.1 mmol/L 3.5-5.3 Chloride 102 mmol/L 98-110 Carbon Dioxide 26 mmol/L 19-30 Calcium 8.9 mg/dL 8.6-10.3 Glucose 118 mg/dL High 65-99 31 Urea Nitrogen 15 mg/dL 7-25 Creatinine 0.87 mg/dL 0.70-1.33 32 BUN/Creatinine Ratio 16.9 6-22 Egfr Non-Afr. Gibraltarian 96 ML/MIN/1.73M2 > Or=60 Egfr 112 ML/MIN/1.73M2 > Or=60 Hepatic Function 08/13/2012 [facility] Alkaline Phosphatase 49 U/L 40- [address] [place] [address] [phone] Ast 38 U/L High 10-35 Alt 44 U/L 9-60 Bilirubin,Total 0.5 mg/dL 0.2-1.2 Bilirubin,Direct 0.1 mg/dL < Or=0.2 Protein,Total 6.6 g/dL 6.1-8.1 Albumin 4.4 g/dL 3.6-5.1 Globulin,Calculated 2.2 g/dL 1.9-3.7 A/G Ratio 2.0 1.0-2.5 Laboratory test 08/13/2012 [facility] Phosphorus 3.1 mg/dL 2.5-4.[address] [place], [place] [id number] [phone] Lipid Panel 08/13/2012 [facility] Cholesterol 185 mg/dL 125-[address] [place] [address] [phone] HDL Cholesterol 71 mg/dL > Or=40 Cholesterol/HDL Ratio 2.6 < Or=5.0 LDL Chol,Calculated 87 mg/dL <130 33 Triglycerides 133 mg/dL <150 Non-HDL Cholesterol 114 mg/dL 34 Lipid Panel 06/09/2012 [facility] Cholesterol 215 mg/dL High 125-[address] [place] [address] [phone] HDL Cholesterol 67 mg/dL > Or=40 Cholesterol/HDL Ratio 3.2 < Or=5.0 LDL Chol,Calculated 121 mg/dL <130 35 Triglycerides 136 mg/dL <150 Non-HDL Cholesterol 148 mg/dL 36 Vitamin D, 25 08/27/2011 [facility] Vitamin 10 ng/mL Low 30-[address] D,25-Oh,[place] [address] [phone] Vitamin D,25-Oh,D3 10 ng/mL Vitamin D,25-Oh,D2 <4 ng/mL 37 TSH & T4,Free 08/27/2011 [facility] TSH 1.29 mIU/L 0.40-4.[address] [place], [place] [id number] [phone] T4,Free 1.2 ng/dL 0.8-1.8 Laboratory test 08/27/2011 [facility] PSA,Total 0.3 NG/ML 0.0-4.0 [address] [place] [address] [phone] Testosterone,Total,Males 320 ng/dL 241-827 39 Comp Metabolic Panel 08/27/2011 [facility] Sodium 140 mmol/L 135-[address] [place] [address] [phone] Potassium 3.9 mmol/L 3.5-5.3 Chloride 103 mmol/L 98-110 Carbon Dioxide 28 mmol/L 21-33 Calcium 9.3 mg/dL 8.6-10.3 Alkaline Phosphatase 57 U/L 40-115 Ast 33 U/L 10-35 Alt 39 U/L 9-60 Bilirubin,Total 0.4 mg/dL 0.2-1.2 Glucose 86 mg/dL 65-99 40 Urea Nitrogen 14 mg/dL 7-25 Creatinine 0.90 mg/dL 0.70-1.33 41 BUN/Creatinine Ratio 15.8 6-22 Protein,Total 7.3 g/dL 6.2-8.3 Albumin 4.9 g/dL 3.6-5.1 Globulin,Calculated 2.4 g/dL 2.1-3.7 A/G Ratio 2.0 1.0-2.1 Egfr Non-Afr. Gibraltarian 96 ML/MIN/1.73M2 > Or=60 Egfr 111 ML/MIN/1.73M2 > Or=60 CBC W/ Diff & PLT 08/27/2011 [facility] WBC 4.5 thous/L 3.8-10.[address] [place] [address] [phone] RBC 4.74 mill/L 4.20-5.80 Hemoglobin 15.1 g/dL 13.2-17.1 Hematocrit 44.9 % 38.5-50.0 MCV 94.9 FL 80.0-100.0 MCH 31.8 pg 27.0-33.0 MCHC 33.5 g/dL 32.0-36.0 RDW 12.7 % 11.0-15.0 Platelet Count 216 thous/L 140-400 Neutrophils,Absolute 2560 cells/L 8851-5277 Lymphocytes,Absolute 1430 cells/L 850-3900 Monocytes,Absolute 380 cells/L 200-950 Eosinophils,Absolute 110 cells/L 15-500 Basophils,Absolute 30 cells/L 0-200 Total Neutrophils,% 57 % 38-80 Total Lymphocytes,% 32 % 15-49 Monocytes,% 8 % 0-13 Eosinophils,% 2 % 0-8 Basophils,% 1 % 0-2 Hepatic Function 08/27/2011 [facility] Alkaline Phosphatase 57 U/L 40- [address] [place], [place] [id number] [phone] Ast 33 U/L 10-35 Alt 39 U/L 9-60 Bilirubin,Total 0.4 mg/dL 0.2-1.2 Bilirubin,Direct 0.1 mg/dL < Or=0.2 Protein,Total 7.3 g/dL 6.2-8.3 Albumin 4.9 g/dL 3.6-5.1 Globulin,Calculated 2.4 g/dL 2.1-3.7 A/G Ratio 2.0 1.0-2.1 Laboratory 08/27/2011 [facility] LDL Cholesterol,Direct 101 <130 42 test finding [address] mg/dL [place], [place] [id number] [phone] Throat-Beta 07/20/[address] [facility] [facility] [address] -------- [place] [address] <SEE [phone] NOTE> Laboratory 05/01/2011 [facility] LDL Cholesterol,Direct 83 mg/dL <130 44 test finding [address] [place], [place] [address] [phone] Hepatic 05/01/2011 [facility] Alkaline Phosphatase 48 U/L 40-115 Function Panel [address] [place], [place] [address] [phone] Ast 28 U/L 10-35 Alt 45 U/L 9-60 Bilirubin,Total 0.7 mg/dL 0.2-1.2 Bilirubin,Direct 0.1 mg/dL < Or=0.2 Protein,Total 6.8 g/dL 6.2-8.3 Albumin 4.5 g/dL 3.6-5.1 Globulin,Calculated 2.3 g/dL 2.1-3.7 A/G Ratio 2.0 1.0-2.1 Laboratory 10/17/2010 [facility] LDL Cholesterol,Direct 69 mg/dL <130 45 test finding 6 [facility] [place] [address] [phone] Hepatic 10/17/2010 [facility] Alkaline Phosphatase 43 U/L 40-115 Function Panel 6 [place] [address] [phone] Ast 27 U/L 10-35 Alt 27 U/L 9-60 Bilirubin,Total 0.5 mg/dL 0.2-1.2 Bilirubin,Direct 0.1 mg/dL < Or=0.2 Protein,Total 6.6 g/dL 6.2-8.3 Albumin 4.4 g/dL 3.6-5.1 Globulin,Calculated 2.2 g/dL 2.1-3.7 A/G Ratio 2.0 1.0-2.1 Lipid Panel 07/20/2010 [facility] Cholesterol 200 mg/dL 125-200 6 [place] [address] [phone] HDL Cholesterol 55 mg/dL > Or=40 Triglycerides 305 mg/dL High <150 Cholesterol/HDL Ratio 3.6 < Or=5.0 LDL Chol,Calculated 84 mg/dL <130 46 Hepatic Function 07/20/2010 [facility] Alkaline Phosphatase 54 U/L 40- 115 Panel 6 [place] [address] [phone] Ast 28 U/L 10-35 Alt 40 U/L 9-60 Bilirubin,Total 0.4 mg/dL 0.2-1.2 Bilirubin,Direct 0.1 mg/dL < Or=0.2 Protein,Total 7.3 g/dL 6.2-8.3 Albumin 4.7 g/dL 3.6-5.1 Globulin,Calculated 2.6 g/dL 2.1-3.7 A/G Ratio 1.8 1.0-2.1 Hepatic Function 05/29/2010 [facility] Alkaline Phosphatase 55 U/L 40- 115 Panel 6 [place], [place] 7903179 [phone] Ast 37 U/L High 10-35 Alt 48 U/L 9-60 Bilirubin,Total 0.6 mg/dL 0.2-1.2 Bilirubin,Direct 0.1 mg/dL < Or=0.2 Protein,Total 7.3 g/dL 6.2-8.3 Albumin 4.8 g/dL 3.6-5.1 Globulin,Calculated 2.5 g/dL 2.1-3.7 A/G Ratio 1.9 1.0-2.1 Lipid Panel 05/29/2010 [facility] Cholesterol 240 mg/dL High 125-200 6 [place], [place] [id number] [phone] HDL Cholesterol 67 mg/dL > Or=40 Triglycerides 153 mg/dL High <150 Cholesterol/HDL Ratio 3.6 < Or=5.0 LDL Chol,Calculated 142 mg/dL High <130 47 Lipid Panel 12/23/2009 [facility] Cholesterol 194 mg/dL 125-200 6 [place], [place] 8204[address] [phone] HDL Cholesterol 56 mg/dL > Or=40 Triglycerides 201 mg/dL High <150 Cholesterol/HDL Ratio 3.5 < Or=5.0 LDL Chol,Calculated 98 mg/dL <130 48 Hepatic Function 12/23/2009 [facility] Alkaline Phosphatase 54 U/L 40- 115 Panel 6 [place] [address] [phone] Ast 28 U/L 10-35 Alt 30 U/L 9-60 Bilirubin,Total 0.5 mg/dL 0.2-1.2 Bilirubin,Direct 0.1 mg/dL < Or=0.2 Protein,Total 6.9 g/dL 6.2-8.3 Albumin 4.5 g/dL 3.6-5.1 Globulin,Calculated 2.4 g/dL 2.1-3.7 A/G Ratio 2.0 1.0-2.1 Hepatic Function 08/09/2009 [facility] Alkaline Phosphatase 50 U/L 40- [address] [place] [address] [phone] Ast 31 U/L 10-35 Alt 31 U/L 9-60 Bilirubin,Total 0.6 mg/dL 0.2-1.2 Bilirubin,Direct 0.1 mg/dL < Or=0.2 Protein,Total 6.7 g/dL 6.2-8.3 Albumin 4.6 g/dL 3.6-5.1 Globulin,Calculated 2.1 g/dL 2.1-3.7 A/G Ratio 2.2 High 1.0-2.1 TSH & T4,Free 08/09/2009 [facility] TSH,3RD 1.80 mIU/L 0.40-4.[address] [place] [address] [phone] T4,Free 1.0 ng/dL 0.8-1.8 Comp Metabolic Panel 08/09/2009 [facility] Sodium 138 mmol/L 135-[address] [place] [address] [phone] Potassium 4.3 mmol/L 3.5-5.3 Chloride 104 mmol/L 98-110 Carbon Dioxide 24 mmol/L 21-33 Calcium 9.1 mg/dL 8.6-10.2 Alkaline Phosphatase 50 U/L 40-115 Ast 31 U/L 10-35 Alt 31 U/L 9-60 Bilirubin,Total 0.6 mg/dL 0.2-1.2 Glucose 97 mg/dL 65-99 49 Urea Nitrogen 13 mg/dL 7-25 Creatinine 0.79 mg/dL 0.76-1.46 BUN/Creatinine Ratio 15.9 6-22 Protein,Total 6.7 g/dL 6.2-8.3 Albumin 4.6 g/dL 3.6-5.1 Globulin,Calculated 2.1 g/dL 2.1-3.7 A/G Ratio 2.2 High 1.0-2.1 Egfr Non-Afr. Gibraltarian >60 ML/MIN/1.73M2 > Or=60 Egfr >60 ML/MIN/1.73M2 > Or=60 Laboratory test 08/09/2009 [facility] PSA,Total 0.3 NG/ML 0.0-4.0 [address] [place] [address] [phone] Lipid Panel 08/09/2009 [facility] Cholesterol 176 mg/dL 125-200 [address] [facility] [place] [address] [phone] HDL Cholesterol 69 mg/dL > Or=40 Triglycerides 99 mg/dL <150 Cholesterol/HDL Ratio 2.6 < Or=5.0 LDL Chol,Calculated 87 mg/dL <130 51 Lipid Panel 02/07/2009 [facility] Cholesterol 166 mg/dL 125-200 [address] [facility] [place], [place] [address] [phone] HDL Cholesterol 62 mg/dL > Or=40 Triglycerides 105 mg/dL <150 Cholesterol/HDL Ratio 2.7 < Or=5.0 LDL Chol,Calculated 83 mg/dL <130 52 Hepatic Function 02/07/2009 [facility] Alkaline Phosphatase 50 U/L 40- 115 Panel [address] [facility]. [place], [place] [id number] [phone] Ast 26 U/L 10-35 Alt 33 U/L 9-60 Bilirubin,Total 0.5 mg/dL 0.2-1.2 Bilirubin,Direct 0.1 mg/dL < Or=0.2 Protein,Total 6.9 g/dL 6.2-8.3 Albumin 4.4 g/dL 3.6-5.1 Globulin,Calculated 2.5 g/dL 2.1-3.7 A/G Ratio 1.8 1.0-2.1 Lipid Panel 10/11/2008 [facility] Cholesterol 165 mg/dL 125-200 [address] [facility]. [place], [place] [address]26 [phone] HDL Cholesterol 59 mg/dL > Or=40 Triglycerides 121 mg/dL <150 Cholesterol/HDL Ratio 2.8 < Or=5.0 LDL Chol,Calculated 82 mg/dL <130 53 Hepatic Function 10/11/2008 [facility] Alkaline Phosphatase 42 U/L 40- 115 Panel [address] [facility]. [place], [place] [address] [phone] Ast 22 U/L 10-35 Alt 31 U/L 9-60 Bilirubin,Total 0.5 mg/dL 0.2-1.2 Bilirubin,Direct 0.1 mg/dL < Or=0.2 Protein,Total 6.8 g/dL 6.2-8.3 Albumin 4.5 g/dL 3.6-5.1 Globulin,Calculated 2.3 g/dL 2.1-3.7 A/G Ratio 2.0 1.0-2.1 Laboratory test 07/09/2008 [facility] PSA,Total 0.4 NG/ML 0.0-4.[address] [place], [place] [id number] [phone] Lipid Panel 07/09/2008 [facility] Cholesterol 174 mg/dL 125-[address] [place] [address] [phone] HDL Cholesterol 65 mg/dL > Or=40 Cholesterol/HDL Ratio 2.7 < Or=5.0 LDL Chol,Calculated 83 mg/dL <130 54 Triglycerides 132 mg/dL <150 TSH & T4,Free 07/09/2008 [facility] TSH,3RD 1.93 mU/L 0.40-4.[address] [place] [address] [phone] T4,Free 1.1 ng/dL 0.8-1.8 Comp Metabolic Panel 07/09/2008 [facility] Sodium 142 mmol/L 135-[address] [place] [address] [phone] Potassium 4.3 mmol/L 3.5-5.3 Chloride 103 mmol/L 98-110 Carbon Dioxide 25 mmol/L 21-33 Calcium 9.9 mg/dL 8.6-10.2 Alkaline Phosphatase 46 U/L 40-115 Ast 26 U/L 10-35 Alt 33 U/L 9-60 Bilirubin,Total 0.9 mg/dL 0.2-1.2 Glucose 95 mg/dL 65-99 55 Urea Nitrogen 11 mg/dL 7-25 Creatinine 0.95 mg/dL 0.50-1.30 BUN/Creatinine Ratio 12.0 6-22 Protein,Total 7.6 g/dL 6.2-8.3 Albumin 4.8 g/dL 3.6-5.1 Globulin,Calculated 2.8 g/dL 2.1-3.7 A/G Ratio 1.7 1.0-2.1 Egfr Non-Afr. Gibraltarian >60 ML/MIN/1.73M2 > Or=60 Egfr >60 ML/MIN/1.73M2 > Or=60 CBC W/ Diff & PLT 07/09/2008 [facility] WBC 5.8 thous/L 3.8-10.8 [address] [place] [address] [phone] RBC 4.76 mill/L 4.20-5.80 Hemoglobin 15.2 g/dL 13.2-17.1 Hematocrit 44.0 % 38.5-50.0 MCV 92.4 FL 80.0-100.0 MCH 32.0 pg 27.0-33.0 MCHC 34.7 g/dL 32.0-36.0 RDW 11.9 % 11.0-15.0 Platelet Count 234 thous/L 140-400 Platelet Sufficiency NORMAL Normal Neutrophils,Absolute 3560 cells/L 4121-5721 Bands,Absolute DNR cells/L 0-750 Metamyelocytes,Absolute DNR cells/L 0 Myelocytes,Absolute DNR cells/L 0 Promyelocytes,Absolute DNR cells/L 0 Lymphocytes,Absolute 1420 cells/L 850-3900 Monocytes,Absolute 530 cells/L 200-950 Eosinophils,Absolute 270 cells/L 15-500 Basophils,Absolute 30 cells/L 0-200 Blast Cells,Absolute DNR cells/L 0 Nucleated RBC,Absolute DNR cells/L 0 Total Neutrophils,% 62 % 38-80 Bands,% DNR % 0-10 Metamyelocytes,% DNR % Myelocytes,% DNR % Promyelocytes,% DNR % Total Lymphocytes,% 24 % 15-49 Monocytes,% 9 % 0-13 Eosinophils,% 5 % 0-8 Basophils,% 0 % 0-2 Blasts,% DNR % Nucleated RBC DNR /100WBC 0 RBC Morphology NORMAL Anisocytosis DNR Poikilocytosis DNR Microcytosis DNR Macrocytosis DNR Polychromasia DNR Hypochromasia DNR Target Cells DNR Basophilic Stippling DNR Comment DNR Lipid Panel 04/19/2008 [facility] Cholesterol 169 mg/dL 125-[address] [place] [address] [phone] HDL Cholesterol 59 mg/dL > Or=40 Triglycerides 120 mg/dL <150 Cholesterol/HDL Ratio 2.9 < Or=5.0 LDL Chol,Calculated 86 mg/dL <130 56 Hepatic Function 04/19/2008 [facility] Alkaline Phosphatase 50 U/L 40- 115 Panel 6 [facility] [place] [address] [phone] Ast 32 U/L 10-35 Alt 42 U/L 9-60 Bilirubin,Total 0.8 mg/dL 0.2-1.2 Bilirubin,Direct 0.2 mg/dL < Or=0.2 Protein,Total 7.5 g/dL 6.2-8.3 Albumin 4.7 g/dL 3.6-5.1 Globulin,Calculated 2.8 g/dL 2.1-3.7 A/G Ratio 1.7 1.0-2.1 CBC W/ Diff & PLT 06/27/2007 [facility] WBC 4.9 thous/L 3.8-10.8 [address] [facility] [place] [address] [phone] RBC 4.82 mill/L 4.20-5.80 Hemoglobin 15.4 g/dL 13.2-17.1 Hematocrit 45.0 % 38.5-50.0 MCV 93.3 FL 80.0-100.0 MCH 32.0 pg 27.0-33.0 MCHC 34.3 g/dL 32.0-36.0 RDW 12.1 % 11.0-15.0 Platelet Count 212 thous/L 140-400 Platelet Sufficiency NORMAL Normal Neutrophils,Absolute 2890 cells/L 5359-9251 Bands,Absolute DNR cells/L 0-750 Metamyelocytes,Absolute DNR cells/L 0 Myelocytes,Absolute DNR cells/L 0 Promyelocytes,Absolute DNR cells/L 0 Lymphocytes,Absolute 1390 cells/L 850-3900 Monocytes,Absolute 440 cells/L 200-950 Eosinophils,Absolute 190 cells/L 15-500 Basophils,Absolute 20 cells/L 0-200 Blast Cells,Absolute DNR cells/L 0 Nucleated RBC,Absolute DNR cells/L 0 Total Neutrophils,% 59 % 38-80 Bands,% DNR % 0-10 Metamyelocytes,% DNR % Myelocytes,% DNR % Promyelocytes,% DNR % Total Lymphocytes,% 28 % 15-49 Monocytes,% 9 % 0-13 Eosinophils,% 4 % 0-8 Basophils,% 0 % 0-2 Blasts,% DNR % Nucleated RBC DNR /100WBC 0 RBC Morphology NORMAL Anisocytosis DNR Poikilocytosis DNR Microcytosis DNR Macrocytosis DNR Polychromasia DNR Hypochromasia DNR Target Cells DNR Basophilic Stippling DNR Comment DNR Hepatic Function 06/27/2007 [facility] Alkaline Phosphatase 48 U/L 40- [address] [place], [place] [address] [phone] Ast 27 U/L 10-35 Alt 40 U/L 9-60 Bilirubin,Total 0.8 mg/dL 0.2-1.2 Bilirubin,Direct 0.1 mg/dL < Or=0.2 Protein,Total 6.9 g/dL 6.2-8.3 Albumin 4.3 g/dL 3.6-5.1 TSH & T4,Free 06/27/2007 [facility] TSH,3RD 1.86 mU/L 0.40-4.[address] [place], [place] [id number] [phone] T4,Free 1.2 ng/dL 0.8-1.8 Comp Metabolic Panel 06/27/2007 [facility] Sodium 138 mmol/L 135-[address] [place] [address] [phone] Potassium 4.3 mmol/L 3.5-5.3 Chloride 101 mmol/L 98-110 Carbon Dioxide 29 mmol/L 21-33 Calcium 9.4 mg/dL 8.6-10.2 Alkaline Phosphatase 48 U/L 40-115 Ast 27 U/L 10-35 Alt 40 U/L 9-60 Bilirubin,Total 0.8 mg/dL 0.2-1.2 Glucose 91 mg/dL 65-99 57 Urea Nitrogen 14 mg/dL 7-25 Creatinine 0.98 mg/dL 0.50-1.30 BUN/Creatinine Ratio 14.1 6-22 Protein,Total 6.9 g/dL 6.2-8.3 Albumin 4.3 g/dL 3.6-5.1 Globulin,Calculated 2.6 g/dL 2.1-3.7 A/G Ratio 1.7 1.0-2.1 Egfr Non-Afr. Gibraltarian >60 ML/MIN/1.7 > Or=60 Egfr >60 ML/MIN/1.7 > Or=60 Lipid Panel 06/27/2007 [facility] Cholesterol 173 mg/dL 125-[address] [place] [address] [phone] HDL Cholesterol 65 mg/dL > Or=40 58 Cholesterol/HDL Ratio 2.7 < Or=5.0 LDL Chol,Calculated 92 mg/dL <130 59 Triglycerides 80 mg/dL <150 Laboratory test 06/27/2007 [facility] PSA,Total 0.4 NG/ML 0.0-4.0 [address] [place] [address] [phone] Lipid Panel 02/10/2007 [facility] Cholesterol 186 mg/dL 125-[address] [place] [address] [phone] HDL Cholesterol 54 mg/dL > Or=40 61 Cholesterol/HDL Ratio 3.4 < Or=5.0 LDL Chol,Calculated 100 mg/dL <130 62 Triglycerides 159 mg/dL High <150 Hepatic Function 02/10/2007 [facility] Alkaline Phosphatase 44 U/L 40- [address] [place] [address] [phone] Ast 26 U/L 10-35 Alt 35 U/L 9-60 Bilirubin,Total 0.8 mg/dL 0.2-1.2 Bilirubin,Direct 0.1 mg/dL < Or=0.2 Protein,Total 6.9 g/dL 6.2-8.3 Albumin 4.1 g/dL 3.6-5.1 Laboratory test 10/25/2006 [facility] Rapid Urease NEGATIVE finding [address] [place] [address] [phone] CBC W/ Diff & PLT 08/19/2006 [facility] WBC 4.8 thous/L 3.8-[address] [place] [address] [phone] RBC 4.77 mill/L 4.20-5.80 Hemoglobin 15.2 g/dL 13.2-17.1 Hematocrit 43.6 % 38.5-50.0 MCV 91.5 FL 80.0-100.0 MCH 31.9 pg 27.0-33.0 MCHC 34.9 g/dL 32.0-36.0 RDW 11.9 % 11.0-15.0 Platelet Count 218 thous/L 140-400 Platelet Sufficiency NORMAL Normal Neutrophils,Absolute 2790 cells/L 6610-0832 Bands,Absolute DNR cells/L 0-750 Metamyelocytes,Absolute DNR cells/L 0 Myelocytes,Absolute DNR cells/L 0 Promyelocytes,Absolute DNR cells/L 0 Lymphocytes,Absolute 1430 cells/L 850-3900 Monocytes,Absolute 350 cells/L 200-950 Eosinophils,Absolute 230 cells/L 15-500 Basophils,Absolute 10 cells/L 0-200 Blast Cells,Absolute DNR cells/L 0 Nucleated RBC,Absolute DNR cells/L 0 Total Neutrophils,% 58 % 38-80 Bands,% DNR % 0-10 Metamyelocytes,% DNR % Myelocytes,% DNR % Promyelocytes,% DNR % Total Lymphocytes,% 30 % 15-49 Monocytes,% 7 % 0-13 Eosinophils,% 5 % 0-8 Basophils,% 0 % 0-2 Blasts,% DNR % Nucleated RBC DNR /100WBC 0 RBC Morphology NORMAL Anisocytosis DNR Poikilocytosis DNR Microcytosis DNR Macrocytosis DNR Polychromasia DNR Hypochromasia DNR Target Cells DNR Basophilic Stippling DNR Comment DNR Comp Metabolic Panel 08/19/2006 [facility] Sodium 138 mmol/L 135-146 [address] [place], [place] [address] [phone] Potassium 4.1 mmol/L 3.5-5.3 Chloride 102 mmol/L 98-110 Carbon Dioxide 28 mmol/L 21-33 Calcium 9.1 mg/dL 8.5-10.4 Alkaline Phosphatase 51 U/L 20-125 Ast 25 U/L 3-50 Alt 34 U/L 3-60 Bilirubin,Total 0.8 mg/dL 0.2-1.5 Glucose 93 mg/dL 65-99 63 Urea Nitrogen 13 mg/dL 7-25 Creatinine 0.9 mg/dL 0.5-1.4 BUN/Creatinine Ratio 15.1 6-25 Protein,Total 7.1 g/dL 6.0-8.3 Albumin 4.6 g/dL 3.5-4.9 Globulin,Calculated 2.5 g/dL 2.2-4.2 A/G Ratio 1.8 0.8-2.0 GFR Estimated >60 ML/MIN/1.7 >59 64 Laboratory test 08/19/2006 [facility] PSA,Total 0.4 NG/ML 0.0-4.0 [address] [place] [address] [phone] Lipid Panel 08/19/2006 [facility] Cholesterol 170 mg/dL <200 [address] [facility] [place] [address] [phone] HDL Cholesterol 62 mg/dL >40 66 Cholesterol/HDL Ratio 2.7 <5.0 LDL Chol,Calculated 88 mg/dL <130 67 Triglycerides 99 mg/dL <150 Hepatic Function 08/19/2006 [facility] Alkaline Phosphatase 51 U/L 20- 125 Panel [address] [facility] [place] [address] [phone] Ast 25 U/L 3-50 Alt 34 U/L 3-60 Bilirubin,Total 0.8 mg/dL 0.2-1.5 Bilirubin,Direct 0.1 mg/dL 0.0-0.3 Protein,Total 7.1 g/dL 6.0-8.3 Albumin 4.6 g/dL 3.5-4.9 Lipid Panel 08/27/2005 [facility] Cholesterol 147 mg/dL <200 [address] [facility] [place] [address] [phone] HDL Cholesterol 54 mg/dL >40 68 Triglycerides 99 mg/dL <150 Cholesterol/HDL Ratio 2.7 <5.0 LDL Chol,Calculated 73 mg/dL <130 69 Hepatic Function 08/27/2005 [facility] Alkaline Phosphatase 44 U/L 20- 125 Panel [address] [facility] [place] [address] [phone] Ast 25 U/L 3-50 Alt 31 U/L 3-60 Bilirubin,Total 0.7 mg/dL 0.2-1.5 Bilirubin,Direct 0.1 mg/dL 0.0-0.3 Protein,Total 7.3 g/dL 6.0-8.3 Albumin 4.4 g/dL 3.5-4.9 1 FASTING 2 LDL-C is now calculated using the Nagi-Bateman calculation, which is a validated novel method providing better accuracy than the Friedewald equation in the estimation of LDL-C. Nagi SS et al.TYSON.2013;310(19):5161-2672 Desirable range <100 mg/dL for primary prevention; <70 mg/dL for patients with CHD or diabetic patients with >or=2 CHD risk factors. For additional information, please refer to [email or web address](This link is being provided for informational/educational purposes only.) 3 For patients with diabetes plus 1 major ASCVD risk factor, treating to a non-HDL-C goal of <100 mg/dL (LDL-C of <70 mg/ dL) is considered a therapeutic option. 4 LDL-C is now calculated using the Nagi-Bateman calculation, which is a validated novel method providing better accuracy than the Friedewald equation in the estimation of LDL-C. Nagi SS et al.TYSON.2013;31019):4732-7565 Desirable range <100 mg/dL for primary prevention; <70 mg/dL for patients with CHD or diabetic patients with >or=2 CHD risk factors. For additional information, please refer to [email or web address](This link is being provided for informational/educational purposes only.) 5 For patients with diabetes plus 1 major ASCVD risk factor, treating to a non-HDL-C goal of <100 mg/dL (LDL-C of <70 mg/ dL) is considered a therapeutic option. 6 Vitamin D Status 25-OH Vitamin D: Deficiency: <20 ng/mL Insufficiency: 20-29 ng/mL Optimal: > or=30 ng/mL For 25-OH Vitamin D testing on patients on D2-supplementation and patients for whom quantitation of D2 and D3 fractions is required, the [facility] 25-OH Vit D, (D2,D3),LC/MS/MS is recommended: Order code 77385 (patients >2 yrs). 7 GLUCOSE REFERENCE RANGE BASED ON FASTING SPECIMEN. 8 The upper reference limit for Creatinine is approximately 13% higher for people identified as -[place]. 9 LDL-CHOLESTEROL RISK CATEGORY* GOAL VERY HIGH (E.G. DIABETES + CVD) <70 MG/DL HIGH (DIABETICS; CHD RISK EQUIVALENTS) <100 MG/DL MODERATELY HIGH (MULTIPLE(2+) RISK FACTORS) <130 MG/DL 0 TO 1 RISK FACTORS <160 MG/DL * [facility]P REPORT. CIRCULATION 2004; 110: [phone] 10 Target for non-HDL cholesterol is 30 mg/dL higher than LDL cholesterol target. 11 For more information on this test, go to [email or web address] 12 THIS TEST WAS PERFORMED USING THE [employer] CHEMILUMINESCENT METHOD. VALUES OBTAINED FROM DIFFERENT ASSAY METHODS CANNOT BE USED INTERCHANGEABLY. PSA LEVELS, REGARDLESS OF VALUE, SHOULD NOT BE INTERPRETED ABSOLUTE EVIDENCE OF THE PRESENCE OR ABSENCE OF DISEASE. 13 LDL-CHOLESTEROL RISK CATEGORY* GOAL VERY HIGH (E.G. DIABETES + CVD) <70 MG/DL HIGH (DIABETICS; CHD RISK EQUIVALENTS) <100 MG/DL MODERATELY HIGH (MULTIPLE(2+) RISK FACTORS) <130 MG/DL 0 TO 1 RISK FACTORS <160 MG/DL * [facility]P REPORT. CIRCULATION 2004; 110: [phone] 14 Target for non-HDL cholesterol is 30 mg/dL higher than LDL cholesterol target. 15 LDL-CHOLESTEROL RISK CATEGORY* GOAL VERY HIGH (E.G. DIABETES + CVD) <70 MG/DL HIGH (DIABETICS; CHD RISK EQUIVALENTS) <100 MG/DL MODERATELY HIGH (MULTIPLE(2+) RISK FACTORS) <130 MG/DL 0 TO 1 RISK FACTORS <160 MG/DL * [facility]P REPORT. CIRCULATION 2004; 110: [phone] 16 Target for non-HDL cholesterol is 30 mg/dL higher than LDL cholesterol target. 17 Target for non-HDL cholesterol is 30 mg/dL higher than LDL cholesterol target. 18 LDL-CHOLESTEROL RISK CATEGORY* GOAL VERY HIGH (E.G. DIABETES + CVD) <70 MG/DL HIGH (DIABETICS; CHD RISK EQUIVALENTS) <100 MG/DL MODERATELY HIGH (MULTIPLE(2+) RISK FACTORS) <130 MG/DL 0 TO 1 RISK FACTORS <160 MG/DL * [facility]P REPORT. CIRCULATION 2004; 110: [phone] 19 THIS TEST WAS PERFORMED USING THE [employer] CHEMILUMINESCENT METHOD. VALUES OBTAINED FROM DIFFERENT ASSAY METHODS CANNOT BE USED INTERCHANGEABLY. PSA LEVELS, REGARDLESS OF VALUE, SHOULD NOT BE INTERPRETED ABSOLUTE EVIDENCE OF THE PRESENCE OR ABSENCE OF DISEASE. 20 For more information on this test, go to http://education.BostInno/faq/ TotalTestosteroneLCMSMS 21 GLUCOSE REFERENCE RANGE BASED ON FASTING SPECIMEN. 22 The upper reference limit for Creatinine is approximately 13% higher for people identified as -Gibraltarian. 23 LDL-CHOLESTEROL RISK CATEGORY* GOAL VERY HIGH (E.G. DIABETES + CVD) <70 MG/DL HIGH (DIABETICS; CHD RISK EQUIVALENTS) <100 MG/DL MODERATELY HIGH (MULTIPLE(2+) RISK FACTORS) <130 MG/DL 0 TO 1 RISK FACTORS <160 MG/DL * NCEP REPORT. CIRCULATION 2004; 110: 227-239 24 Target for non-HDL cholesterol is 30 mg/dL higher than LDL cholesterol target. 25 LDL-CHOLESTEROL RISK CATEGORY* GOAL VERY HIGH (E.G. DIABETES + CVD) <70 MG/DL HIGH (DIABETICS; CHD RISK EQUIVALENTS) <100 MG/DL MODERATELY HIGH (MULTIPLE(2+) RISK FACTORS) <130 MG/DL 0 TO 1 RISK FACTORS <160 MG/DL * NCEP REPORT. CIRCULATION 2004; 110: 227-239 26 Target for non-HDL cholesterol is 30 mg/dL higher than LDL cholesterol target. 27 LDL-CHOLESTEROL RISK CATEGORY* GOAL VERY HIGH (E.G. DIABETES + CVD) <70 MG/DL HIGH (DIABETICS; CHD RISK EQUIVALENTS) <100 MG/DL MODERATELY HIGH (MULTIPLE(2+) RISK FACTORS) <130 MG/DL 0 TO 1 RISK FACTORS <160 MG/DL * NCEP REPORT. CIRCULATION 2004; 110: 227-239 28 Note: Persistent reduction for 3 months or more in an eGFR <60 mL/min/1.73 m2 defines CKD. Patients with eGFR values >/=60 mL/min/1.73 m2 may also have CKD if evidence of persistent proteinuria is present. The original MDRD equation for estimated GFR is not valid for patients less than 18 years of age. Additional information may be found at www.kdoqi.org. 29 THE CURRENT LOT OF FREE T4 REAGENT AVAILABLE FROM THE [employer] PRODUCES RESULTS THAT ARE APPROXIMATELY 9% HIGHER THAN PREVIOUS REAGENT LOTS. PLEASE INTERPRET THESE RESULTS ACCORDINGLY. 30 THIS TEST WAS PERFORMED USING THE [employer] CHEMILUMINESCENT METHOD. VALUES OBTAINED FROM DIFFERENT ASSAY METHODS CANNOT BE USED INTERCHANGEABLY. PSA LEVELS, REGARDLESS OF VALUE, SHOULD NOT BE INTERPRETED ABSOLUTE EVIDENCE OF THE PRESENCE OR ABSENCE OF DISEASE. 31 GLUCOSE REFERENCE RANGE BASED ON FASTING SPECIMEN. 32 The upper reference limit for Creatinine is approximately 13% higher for people identified as -Gibraltarian. 33 LDL-CHOLESTEROL RISK CATEGORY* GOAL VERY HIGH (E.G. DIABETES + CVD) <70 MG/DL HIGH (DIABETICS; CHD RISK EQUIVALENTS) <100 MG/DL MODERATELY HIGH (MULTIPLE(2+) RISK FACTORS) <130 MG/DL 0 TO 1 RISK FACTORS <160 MG/DL * NCEP REPORT. CIRCULATION 2004; 110: 227-239 34 Target for non-HDL cholesterol is 30 mg/dL higher than LDL cholesterol target. 35 LDL-CHOLESTEROL RISK CATEGORY* GOAL VERY HIGH (E.G. DIABETES + CVD) <70 MG/DL HIGH (DIABETICS; CHD RISK EQUIVALENTS) <100 MG/DL MODERATELY HIGH (MULTIPLE(2+) RISK FACTORS) <130 MG/DL 0 TO 1 RISK FACTORS <160 MG/DL * NCEP REPORT. CIRCULATION 2004; 110: 227-239 36 Target for non-HDL cholesterol is 30 mg/dL higher than LDL cholesterol target. 37 25-OHD3 indicates both endogenous production and supplementation. 25-OHD2 is an indicator of exogenous sources such as diet or supplementation. Therapy is based on measurement of Total 25-OHD, with levels <20 ng/mL indicative of Vitamin D deficiency while levels between 20 ng/mL and 30 ng/mL suggest insufficiency. Optimal levels are > or=30ng/mL. 38 THIS TEST WAS PERFORMED USING THE [employer] CHEMILUMINESCENT METHOD. VALUES OBTAINED FROM DIFFERENT ASSAY METHODS CANNOT BE USED INTERCHANGEABLY. PSA LEVELS, REGARDLESS OF VALUE, SHOULD NOT BE INTERPRETED ABSOLUTE EVIDENCE OF THE PRESENCE OR ABSENCE OF DISEASE. 39 IN HYPOGONADAL MALES, TESTOSTERONE, TOTAL, LC/MS/MS, IS THE RECOMMENDED ASSAY. THIS TEST CODE (92475Q) MUST BE COLLECTED IN A RED-TOP TUBE WITH NO GEL. THE ENDOCRINE SOCIETY RECOMMENDS OBTAINING AT LEAST TWO MORNING (8-10 A.M.) SAMPLES ON DIFFERENT DAYS WHEN SCREENING FOR HYPOGONADISM. 40 GLUCOSE REFERENCE RANGE BASED ON FASTING SPECIMEN. 41 The upper reference limit for Creatinine is approximately 13% higher for people identified as -Gibraltarian. 42 LDL-CHOLESTEROL RISK CATEGORY* GOAL VERY HIGH (E.G. DIABETES + CVD) <70 MG/DL HIGH (DIABETICS; CHD RISK EQUIVALENTS) <100 MG/DL MODERATELY HIGH (MULTIPLE(2+) RISK FACTORS) <130 MG/DL 0 TO 1 RISK FACTORS <160 MG/DL * NCEP REPORT. CIRCULATION 2004; 110: 227-239 43 RUN DATE: 07/22/11 [facility] NMI LIVE PAGE 1 RUN TIME: 832 Specimen Inquiry RUN USER: INTERFACE Name: MEHDI HARMON Status: BRANT CLI Re07/20/11 Age/Sex: 55/M Unit#: [id number] Location: : 55 SPEC #: [id number] JETT: 07/20/11 STATUS: TANIKA HENSLEY #: [id number] RECD: 07/20/[address] [facility] [address]: Dmitry AGRAWAL,Radha Doyle SOURCE: THROAT ENTR: 07/20/11 [facility] DR: Sydnee AGRAWAL,Mauri Kerr [facility] ORDERED: THROAT-BETA STR ACT WKST: BS 07/22/11 #1 Procedure Result Verified Site > THROAT-BETA STREP CULTURE Final 07/22/11- 0833 ML NEGATIVE FOR GROUP A BETA STREPTOCOCCUS ML - [facility] Permit #[id number] [address] [place] [address] DEPARTMENT OF PATHOLOGY, [address] [place] [address] [facility] Permit #[id number] Umesh Marx M.D. Director Paul Perera M.D. Mirror Finishing Machine Operator 44 LDL-CHOLESTEROL RISK CATEGORY* GOAL VERY HIGH (E.G. DIABETES + CVD) <70 MG/DL HIGH (DIABETICS; CHD RISK EQUIVALENTS) <100 MG/DL MODERATELY HIGH (MULTIPLE(2+) RISK FACTORS) <130 MG/DL 0 TO 1 RISK FACTORS <160 MG/DL * NCEP REPORT. CIRCULATION 2004; 110: 227-239 45 LDL-CHOLESTEROL RISK CATEGORY* GOAL VERY HIGH (E.G. DIABETES + CVD) <70 MG/DL HIGH (DIABETICS; CHD RISK EQUIVALENTS) <100 MG/DL MODERATELY HIGH (MULTIPLE(2+) RISK FACTORS) <130 MG/DL 0 TO 1 RISK FACTORS <160 MG/DL * NCEP REPORT. CIRCULATION 2004; 110: 227-239 46 LDL-CHOLESTEROL RISK CATEGORY* GOAL VERY HIGH (E.G. DIABETES + CVD) <70 MG/DL HIGH (DIABETICS; CHD RISK EQUIVALENTS) <100 MG/DL MODERATELY HIGH (MULTIPLE(2+) RISK FACTORS) <130 MG/DL 0 TO 1 RISK FACTORS <160 MG/DL * NCEP REPORT. CIRCULATION 2004; 110: 227-239 47 LDL-CHOLESTEROL RISK CATEGORY* GOAL VERY HIGH (E.G. DIABETES + CVD) <70 MG/DL HIGH (DIABETICS; CHD RISK EQUIVALENTS) <100 MG/DL MODERATELY HIGH (MULTIPLE(2+) RISK FACTORS) <130 MG/DL 0 TO 1 RISK FACTORS <160 MG/DL * NCEP REPORT. CIRCULATION 2004; 110: 227-239 48 LDL-CHOLESTEROL RISK CATEGORY* GOAL VERY HIGH (E.G. DIABETES + CVD) <70 MG/DL HIGH (DIABETICS; CHD RISK EQUIVALENTS) <100 MG/DL MODERATELY HIGH (MULTIPLE(2+) RISK FACTORS) <130 MG/DL 0 TO 1 RISK FACTORS <160 MG/DL * NCEP REPORT. CIRCULATION 2004; 110: 227-239 49 GLUCOSE REFERENCE RANGE BASED ON FASTING SPECIMEN. 50 PSA VALUES FROM DIFFERENT ASSAY METHODS CANNOT BE USED INTERCHANGEABLY. THIS ASSAY WAS PERFORMED USING THE [employer] CHEMILUMINESCENCE METHOD. SERUM PSA LEVELS SHOULD NOT BE INTERPRETED ABSOLUTE EVIDENCE OF THE PRESENCE OR ABSENCE OF DISEASE. 51 LDL-CHOLESTEROL RISK CATEGORY* GOAL VERY HIGH (E.G. DIABETES + CVD) <70 MG/DL HIGH (DIABETICS; CHD RISK EQUIVALENTS) <100 MG/DL MODERATELY HIGH (MULTIPLE(2+) RISK FACTORS) <130 MG/DL 0 TO 1 RISK FACTORS <160 MG/DL * NCEP REPORT. CIRCULATION 2004; 110: 227-239 52 LDL-CHOLESTEROL RISK CATEGORY* GOAL VERY HIGH (E.G. DIABETES + CVD) <70 MG/DL HIGH (DIABETICS; CHD RISK EQUIVALENTS) <100 MG/DL MODERATELY HIGH (MULTIPLE(2+) RISK FACTORS) <130 MG/DL 0 TO 1 RISK FACTORS <160 MG/DL * NCEP REPORT. CIRCULATION 2004; 110: 227-239 53 LDL-CHOLESTEROL RISK CATEGORY* GOAL VERY HIGH (E.G. DIABETES + CVD) <70 MG/DL HIGH (DIABETICS; CHD RISK EQUIVALENTS) <100 MG/DL MODERATELY HIGH (MULTIPLE(2+) RISK FACTORS) <130 MG/DL 0 TO 1 RISK FACTORS <160 MG/DL * NCEP REPORT. CIRCULATION 2004; 110: 227-239 54 LDL-CHOLESTEROL RISK CATEGORY* GOAL VERY HIGH (E.G. DIABETES + CVD) <70 MG/DL HIGH (DIABETICS; CHD RISK EQUIVALENTS) <100 MG/DL MODERATELY HIGH (MULTIPLE(2+) RISK FACTORS) <130 MG/DL 0 TO 1 RISK FACTORS <160 MG/DL * NCEP REPORT. CIRCULATION 2004; 110: 227-239 55 GLUCOSE REFERENCE RANGE BASED ON FASTING SPECIMEN. 56 LDL-CHOLESTEROL RISK CATEGORY* GOAL VERY HIGH (E.G. DIABETES + CVD) <70 MG/DL HIGH (DIABETICS; CHD RISK EQUIVALENTS) <100 MG/DL MODERATELY HIGH (MULTIPLE(2+) RISK FACTORS) <130 MG/DL 0 TO 1 RISK FACTORS <160 MG/DL * NCEP REPORT. CIRCULATION 2004; 110: 227-239 57 GLUCOSE REFERENCE RANGE BASED ON FASTING SPECIMEN. 58 HDL REFERENCE RANGES ADULTS (20 YEARS & OLDER) DESIRABLE: > OR=60 MG/DL HIGHER RISK: <40 MG/DL 59 LDL-CHOLESTEROL RISK CATEGORY* GOAL VERY HIGH (E.G. DIABETES + CVD) <70 MG/DL HIGH (DIABETICS; CHD RISK EQUIVALENTS) <100 MG/DL MODERATELY HIGH (MULTIPLE(2+) RISK FACTORS) <130 MG/DL 0 TO 1 RISK FACTORS <160 MG/DL * NCEP REPORT. CIRCULATION 2004; 110: 227-239 60 PSA VALUES FROM DIFFERENT ASSAY METHODS CANNOT BE USED INTERCHANGEABLY. THIS ASSAY WAS PERFORMED USING THE [employer] CHEMILUMINESCENCE METHOD. SERUM PSA LEVELS SHOULD NOT BE INTERPRETED ABSOLUTE EVIDENCE OF THE PRESENCE OR ABSENCE OF DISEASE. 61 HDL REFERENCE RANGES ADULTS (20 YEARS & OLDER) DESIRABLE: > OR=60 MG/DL HIGHER RISK: <40 MG/DL 62 LDL-CHOLESTEROL RISK CATEGORY* GOAL VERY HIGH (E.G. DIABETES + CVD) <70 MG/DL HIGH (DIABETICS; CHD RISK EQUIVALENTS) <100 MG/DL MODERATELY HIGH (MULTIPLE(2+) RISK FACTORS) <130 MG/DL 0 TO 1 RISK FACTORS <160 MG/DL * NCEP REPORT. CIRCULATION 2004; 110: 227-239 63 GLUCOSE REFERENCE RANGE BASED ON FASTING SPECIMEN. 64 THE GFR ESTIMATE IS NOT ADJUSTED FOR RACE, IF THE PATIENT RACE IS -INDONESIAN, THE GFR ESTIMATE MUST BE MULTIPLIED BY A FACTOR OF 1.21. 65 PSA VALUES FROM DIFFERENT ASSAY METHODS CANNOT BE USED INTERCHANGEABLY. THIS ASSAY WAS PERFORMED USING THE [employer] CHEMILUMINESCENCE METHOD. 66 HDL REFERENCE RANGES ADULTS (20 YEARS & OLDER) DESIRABLE: > OR=60 MG/DL HIGHER RISK: <40 MG/DL 67 LDL-CHOLESTEROL RISK CATEGORY* GOAL VERY HIGH (E.G. DIABETES + CVD) <70 MG/DL HIGH (DIABETICS; CHD RISK EQUIVALENTS) <100 MG/DL MODERATELY HIGH (MULTIPLE(2+) RISK FACTORS) <130 MG/DL 0 TO 1 RISK FACTORS <160 MG/DL * NCEP REPORT. CIRCULATION 2003; 110: 227-239 68 HDL REFERENCE RANGES ADULTS (20 YEARS & OLDER) DESIRABLE: > OR=60 MG/DL HIGHER RISK: <40 MG/DL 69 LDL-CHOLESTEROL RISK CATEGORY* GOAL VERY HIGH (E.G. DIABETES + CVD) <70 MG/DL HIGH (DIABETICS; CHD RISK EQUIVALENTS) <100 MG/DL MODERATELY HIGH (MULTIPLE(2+) RISK FACTORS) <130 MG/DL 0 TO 1 RISK FACTORS <160 MG/DL * NCEP REPORT. CIRCULATION 2004; 110: 227-239 Procedures Date Code Description Status 03/21/2015 63525 Spirometry Graphic Record/Max Voluntary Vent Completed 03/21/2015 14391 PVR-Atrerial Study Completed 03/21/2015 81909 Holter Monitor Office Completed 03/17/2015 [id number] Bone Mineral Density Test Completed 03/17/2015 77085 Bone Density Completed 03/15/2015 51597 Non-Invcorrotid/Comp /Bilat Study Completed 03/15/2015 81595 Echocardiography Completed 09/24/2013 48702 Bone Density Completed 09/24/2013 99764 EKG-Tracing & Report Completed 09/24/2013 60944 Spirometry Graphic Record/Max Voluntary Vent Completed 09/24/2013 98196 Holter Monitor Office Completed 09/24/2013 33615 PVR-Atrerial Study Completed 09/17/2013 69692 Non-Invcorrotid/Comp /Bilat Study Completed 09/17/2013 01741 Echocardiography Completed 10/09/2012 39511 Non-Invcorrotid/Comp /Bilat Study Completed 10/09/2012 51657 Echocardiography Completed 09/30/2012 06313 Spirometry Graphic Record/Max Voluntary Vent Completed 09/30/2012 02333 Holter Monitor Office Completed 08/27/2011 85551 PVR-Atrerial Study Completed 08/27/2011 56586 Holter Monitor Office Completed 08/27/2011 45996 Spirometry Graphic Record/Max Voluntary Vent Completed 08/23/2011 88088 Bone Density Completed 08/22/2011 09364 Echocardiography Completed 08/22/2011 16390 Non-Invcorrotid/Comp /Bilat Study Completed 10/10/2010 8 Records Completed 12/23/2009 21566 PFT Evaluation Completed 08/09/2009 05802 Non-Invcorrotid/Comp /Bilat Study Completed 08/09/2009 82150 Echocardiography Completed 08/09/2009 46469 Holter Monitor Office Completed 08/09/2009 14391 EKG-Tracing & Report Completed 08/10/2008 87263 Holter Monitor Office Completed 07/09/2008 07848 Non-Invcorrotid/Comp /Bilat Study Completed 07/09/2008 19071 Doppler Color Flow Velocity Completed 07/09/2008 42582 Doppler/ECHO Completed 07/09/2008 27459 ECHO-2D W/Wo M-Mode Completed 07/09/2008 86315 EKG-Tracing & Report Completed 05/11/2008 79760 Injections Thera,Prop,Paula, B12 Completed 06/27/2007 27279 Spirometry Graphic Record/Max Voluntary Vent Completed 06/27/2007 80851 Non-Invcorrotid/Comp /Bilat Study Completed 06/27/2007 31419 Doppler Color Flow Velocity Completed 06/27/2007 91642 Doppler/ECHO Completed 06/27/2007 90262 ECHO-2D W/Wo M-Mode Completed 06/27/2007 20805 Holter Monitor Office Completed 10/25/2006 09041730 Colonoscopy Completed 04/23/2006 52272 Holter Monitor Office Completed 04/23/2006 80560 EKG-Tracing & Report Completed 04/22/2006 45999 Doppler/ECHO Completed 04/22/2006 83810 ECHO-2D W/Wo M-Mode Completed 04/22/2006 92378 Non-Invcorrotid/Comp /Bilat Study Completed 04/22/2006 08168 Doppler Color Flow Velocity Completed 02/19/2005 35767 Holter Monitor Office Completed 10/10/2004 01451 Spirometry Graphic Record/Max Voluntary Vent Completed 10/10/2004 48074 EKG-Tracing & Report Completed 10/02/2004 82438 Doppler Color Flow Velocity Completed 10/02/2004 31888 Doppler/ECHO Completed 10/02/2004 94166 ECHO-2D W/Wo M-Mode Completed 03/21/2004 79861 Spirometry Graphic Record/Max Voluntary Vent Completed Encounters Type Date Location Provider Dx Diagnosis Office Visit 04/10/2018 Main Office Mauri Randhawa MD Z88.7 Allergy status to 1:45p serum and vaccine status Office Visit 04/08/2018 Main Office Mauri Randhawa MD G47.00 Insomnia, unspecified 2:00p E78.5 Hyperlipidemia, unspecified J45.30 Mild persistent asthma, uncomplicated K21.9 Gastro-esophageal reflux disease without esophagitis I11.9 Hypertensive heart disease without heart failure I65.23 Occlusion and stenosis of bilateral carotid arteries Z23 Encounter for immunization Office Visit 01/28/2018 3:00p Main Office Mauri Randhawa G47.00 MD Mila unspecified E78.5 Hyperlipidemia, unspecified J45.30 Mild persistent asthma, uncomplicated K21.9 Gastro-esophageal reflux disease without esophagitis I11.9 Hypertensive heart disease without heart failure Office Visit 05/17/2016 11:30a Main Office Grace Randhawa G47.00 Insomnia, M.D. unspecified E78.5 Hyperlipidemia, unspecified J45.30 Mild persistent asthma, uncomplicated Office Visit 10/26/2015 8:45p Main Office Herminio Alvarez MD G47.00 Insomnia, unspecified Office Visit 10/20/2015 2:00p Main Office Pia Joiner8.5 Hyperlipidemia, M.D. unspecified K21.9 Gastro-esophageal reflux disease without esophagitis I11.9 Hypertensive heart disease without heart failure Office Visit 05/18/2015 11:10a Main Office Mauri Randhawa, E78.5 Hyperlipidemia, unspecified K21.9 Gastro-esophageal reflux disease without esophagitis I11.9 Hypertensive heart disease without heart failure I65.23 Occlusion and stenosis of bilateral carotid arteries Office Visit 04/19/2015 Main Office Mauri Kerr V04.81 Need For Prophylactic 11:10a MD Sydnee Vaccination & Inoculation/Influenza 571.40 Hepatitis Chronic Unspec 424.0 Mitral Valve Disorder 402.10 Hypertensive Heart Disease Benign W/O Heart Failure 272.4 Hyperlipidemia Other Unspec 530.81 Esophageal Reflux Office Visit 03/15/2015 1:30p Main Office Mauri Randhawa, 789.9 Abdomen & Pelvis MD Symptoms Other Office Visit 11/15/2014 10:40a Main Office Mauri Randhawa, 311 Depressive Disorder MD Not Elsewhere Spec 308.9 Stress Reaction Unspec Acute 402.10 Hypertensive Heart Disease Benign W/O Heart Failure 272.4 Hyperlipidemia Other Unspec 530.81 Esophageal Reflux Office Visit 09/06/2014 3:10p Main Office Mauri Randhawa, 311 Depressive Disorder MD Not Elsewhere Spec Office Visit 08/04/2014 10:50a Main Office Mauri Randhawa, 308.9 Stress Reaction MD Unspec Acute 311 Depressive Disorder Not Elsewhere Spec Office Visit 05/11/2014 10:40a Main Office Mauri Randhawa, 402.10 Hypertensive Heart MD Disease Benign W/O Heart Failure 272.4 Hyperlipidemia Other Unspec 530.81 Esophageal Reflux V04.81 Need For Prophylactic Vaccination & Inoculation/Influenza Office Visit 02/09/2014 11:50a Main Office Mauri Randhawa, 455.6 Hemorrhoids Unspec MD W/O Complication 272.4 Hyperlipidemia Other Unspec Office Visit 12/30/2013 11:00a Main Office Mauri Randhawa, 455.6 Hemorrhoids Unspec W/O MD Complication Office Visit 10/05/2013 10:20a Main Office Mauri Randhawa, 272.4 Hyperlipidemia Other MD Unspec 424.0 Mitral Valve Disorder 433.10 Occlusion & Stenosis Carotid Artery W/O Cerebral Infarction 307.42 Sleep Disorder Persistent Initiating Or Maintaining Sleep 607.84 Impotence Organic Origin 530.81 Esophageal Reflux Office Visit 06/09/2013 3:10p Main Office Mauri Randhawa MD 424.0 Mitral Valve Disorder 307.42 Sleep Disorder Persistent Initiating Or Maintaining Sleep 272.4 Hyperlipidemia Other Unspec 607.84 Impotence Organic Origin Office Visit 02/17/2013 3:00p Main Office Mauri Randhawa, 110.3 Dermatophytosis Sanjuanita AGRAWAL & Perianal Area Office Visit 02/10/2013 10:00a Main Office Mauri Randhawa, 424.0 Mitral Valve Disorder 433.10 Occlusion & Stenosis Carotid Artery W/O Cerebral Infarction 307.42 Sleep Disorder Persistent Initiating Or Maintaining Sleep 272.4 Hyperlipidemia Other Unspec Office Visit 10/22/2012 10:50a Main Office Mauri Randhawa MD 424.0 Mitral Valve Disorder 433.10 Occlusion & Stenosis Carotid Artery W/O Cerebral Infarction 307.42 Sleep Disorder Persistent Initiating Or Maintaining Sleep 272.4 Hyperlipidemia Other Unspec 607.84 Impotence Organic Origin 493.90 Asthma Unspec W/O Status Asthmaticus V12.72 History Personal Colonic Polyps Office Visit 08/11/2012 3:30p Main Office Mauri Randhawa, 333.1 Tremor Essential & MD Other Forms Office Visit 06/11/2012 10:50a Main Office Mauri Randhawa, 724.50 Back Pain 307.42 Sleep Disorder Persistent Initiating Or Maintaining Sleep 300.00 Anxiety State Unspec 272.4 Hyperlipidemia Other Unspec Office Visit 02/25/2012 2:20p Main Office Mauri Randhawa MD 424.0 Mitral Valve Disorder 272.4 Hyperlipidemia Other Unspec 607.84 Impotence Organic Origin 530.81 Esophageal Reflux 268.9 Vitamin D Deficiency Unspec Office Visit 05/16/2011 10:10a Main Office Mauri Randhawa, 272.4 Hyperlipidemia Other MD Unspec 307.42 Sleep Disorder Persistent Initiating Or Maintaining Sleep 607.84 Impotence Organic Origin 424.0 Mitral Valve Disorder 530.81 Esophageal Reflux 300.00 Anxiety State Unspec 466.0 Bronchitis Acute 460.00 Upper Respiratory Infection V04.81 Need For Prophylactic Vaccination & Inoculation/Influenza 723.1 Cervicalgia 493.00 Asthma Extrinsic Unspecified 726.32 Epicondylitis Lateral 433.10 Occlusion & Stenosis Carotid Artery W/O Cerebral Infarction 466.00 Acute Bronchitis 785.10 Palpitations 486 Pneumonia Organism Unspec GENERAL General 477.9 Rhinitis Allergic Cause Unspec 427.90 Arrhythmia 727.05 Tenosynovitis Hand & Wrist Other 786.2 Cough 413.90 Angina 493.90 Asthma Unspec W/O Status Asthmaticus 382.90 Otitis Media 473.90 Sinusitis 786.05 Shortness Of Breath 719.48 Pain Joint Other Spec Sites 493.92 Asthma Unspec W/ Acute Exacerbation 729.2 Neuralgia Neuritis & Radiculitis Unspec 272.00 Hypercholestrolemia 786.52 Painful Respiration Office Visit 10/30/2010 3:10p Main Office Mauri Randhawa, 272.4 Hyperlipidemia Other Unspec 307.42 Sleep Disorder Persistent Initiating Or Maintaining Sleep 424.0 Mitral Valve Disorder 530.81 Esophageal Reflux 607.84 Impotence Organic Origin 300.00 Anxiety State Unspec 466.0 Bronchitis Acute Office Visit 08/01/2010 3:30p Main Office Mauri Randhawa, 272.4 Hyperlipidemia Other Unspec 307.42 Sleep Disorder Persistent Initiating Or Maintaining Sleep 424.0 Mitral Valve Disorder 530.81 Esophageal Reflux 607.84 Impotence Organic Origin 300.00 Anxiety State Unspec Office Visit 06/13/2010 10:00a Main Office Mauri Randhawa, 272.4 Hyperlipidemia Other Unspec 307.42 Sleep Disorder Persistent Initiating Or Maintaining Sleep 460.00 Upper Respiratory Infection 424.0 Mitral Valve Disorder 530.81 Esophageal Reflux V04.81 Need For Prophylactic Vaccination & Inoculation/Influenza Office Visit 02/13/2010 10:40a Main Office Mauri Randhawa MD 723.1 Cervicalgia 493.00 Asthma Extrinsic Unspecified 272.4 Hyperlipidemia Other Unspec 307.42 Sleep Disorder Persistent Initiating Or Maintaining Sleep Office Visit 12/23/2009 9:50a Main Office Grace Randhawa, 726.32 Epicondylitis Lateral M.D. Office Visit 12/12/2009 11:30a Main Office Mauri Randhawa, 460.00 Upper Respiratory MD Infection Office Visit 08/22/2009 10:20a Main Office Mauri Randhawa, 433.10 Occlusion & Stenosis Carotid Artery W/O Cerebral Infarction 424.0 Mitral Valve Disorder 272.4 Hyperlipidemia Other Unspec 493.00 Asthma Extrinsic Unspecified 466.00 Acute Bronchitis V03.7 Tetanus Toxoid Vaccination & Inoculation Office Visit 06/27/2009 3:00p Main Office Mauri Randhawa, 493.00 Asthma Extrinsic MD Unspecified 466.00 Acute Bronchitis 486 Pneumonia Organism Unspec Office Visit 06/21/2009 11:30a Main Office Mauri Randhawa, 493.00 Asthma Extrinsic MD Unspecified 466.00 Acute Bronchitis 486 Pneumonia Organism Unspec Office Visit 02/21/2009 3:00p Main Office Mauri Randhawa, 607.84 Impotence Organic Origin 272.4 Hyperlipidemia Other Unspec 300.00 Anxiety State Unspec 307.42 Sleep Disorder Persistent Initiating Or Maintaining Sleep GENERAL General 477.9 Rhinitis Allergic Cause Unspec Office Visit 10/25/2008 3:00p Main Office Mauri Randhawa, 607.84 Impotence Organic Origin 272.4 Hyperlipidemia Other Unspec Office Visit 08/23/2008 10:00a Main Office Mauri Randhawa, 607.84 Impotence Organic Origin 300.00 Anxiety State Unspec Office Visit 07/20/2008 3:00p Main Office Mauri Randhawa MD 427.90 Arrhythmia 272.4 Hyperlipidemia Other Unspec 433.10 Occlusion & Stenosis Carotid Artery W/O Cerebral Infarction 607.84 Impotence Organic Origin 307.42 Sleep Disorder Persistent Initiating Or Maintaining Sleep GENERAL General Office Visit 05/25/2008 3:00p Main Office Mauri Randhawa, 272.4 Hyperlipidemia Other Unspec 607.84 Impotence Organic Origin GENERAL General 307.42 Sleep Disorder Persistent Initiating Or Maintaining Sleep Office Visit 05/11/2008 3:20p Main Office Mauri Randhawa, 272.4 Hyperlipidemia Other Unspec 607.84 Impotence Organic Origin V04.81 Need For Prophylactic Vaccination & Inoculation/Influenza Office Visit 03/09/2008 3:10p Main Office Mauri Randhawa, 727.05 Tenosynovitis Hand & MD Wrist Other Office Visit 11/03/2007 2:30p Main Office Mauri Randhawa, 272.4 Hyperlipidemia Other Unspec 272.40 Hyperlipidemia 307.42 Sleep Disorder Persistent Initiating Or Maintaining Sleep 427.90 Arrhythmia 607.84 Impotence Organic Origin GENERAL General Office Visit 03/03/2007 3:10p Main Office Mauri Randhawa MD 272.40 Hyperlipidemia 433.10 Occlusion & Stenosis Carotid Artery W/O Cerebral Infarction 307.42 Sleep Disorder Persistent Initiating Or Maintaining Sleep 493.90 Asthma Unspec W/O Status Asthmaticus Office Visit 08/27/2006 10:10a Main Office Mauri Randhawa MD 272.40 Hyperlipidemia 427.90 Arrhythmia 433.10 Occlusion & Stenosis Carotid Artery W/O Cerebral Infarction 307.42 Sleep Disorder Persistent Initiating Or Maintaining Sleep 607.84 Impotence Organic Origin 493.90 Asthma Unspec W/O Status Asthmaticus GENERAL General Office Visit 07/18/2006 11:00a Main Office Grace Randhawa M.D. 466.00 Acute Bronchitis 460.00 Upper Respiratory Infection Office Visit 04/16/2006 11:40a Main Office Mauri Randhawa, 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 Office Visit 09/25/2005 11:40a Main Office Mauri Randhawa 466.00 Acute Bronchitis MD Office Visit 09/11/2005 10:10a Main Office Mauri Randhawa, 272.40 Hyperlipidemia 493.00 Asthma Extrinsic Unspecified 427.90 Arrhythmia 477.9 Rhinitis Allergic Cause Unspec 607.84 Impotence Organic Origin Office Visit 02/26/2005 10:30a Main Office Mauri Randhawa MD 272.40 Hyperlipidemia 785.10 Palpitations 493.00 Asthma Extrinsic Unspecified 427.90 Arrhythmia Office Visit 10/25/2004 2:20p Main Office Mauri Randhawa, 493.00 Asthma Extrinsic MD Unspecified 427.90 Arrhythmia Office Visit 10/03/2004 1:30p Main Office Mauri Randhawa MD 382.90 Otitis Media 473.90 Sinusitis Office Visit 06/07/2004 1:40p Main Office Mauri Randhawa, 493.00 Asthma Extrinsic Unspecified 786.05 Shortness Of Breath Office Visit 05/09/2004 4:00p Main Office Mauri Randhawa, 719.48 Pain Joint Other Spec MD Sites Office Visit 01/26/2004 2:40p Main Office Mauri Randhawa 466.00 Acute Bronchitis MD Office Visit 12/23/2003 11:20a Main Office Mauri Randhawa 272.40 Hyperlipidemia 493.92 Asthma Unspec W/ Acute Exacerbation Plan of Treatment Future Appointment(s):05/20/2018 3:10 pm - Mauri Randhawa MD at [id number] - Mauri Randhawa MDZ88.7 Allergy status to serum and vaccine statusComments:mild localizedplan ice
--- OUTSIDE RECORDS SUMMARY | 2018-04-21 09:46 | XMS REPORT | Continuity of Care Document ---
:1955 External Reference #:[id number] Author Name Aletha Malin Care Team Providers Name Role Phone Mauri Randhawa MD Primary Care Physician Unavailable Payers Type Date Identification Numbers Payment Provider Subscriber Policy Number: [id number] [employer] Number: [id number] [address] PayID: [id number] [place] [id number] Advance Directives Description No Information Available Problems [...] Mauri Randhawa MD Active Onset: 05/16/2011 Palpitations Mauri Randhawa MD Active Onset: 05/16/2011 Pneumonia Mauri [...] Date Family Member(s) Problem(s) Comments General Father ME in his 40's , mother pvd Father ME Father due to Heart Disease () Mother [...] currently sexually active Allergies, Adverse Reactions, Alerts Description No Known Drug Allergies Medications Medication Date Status Form Strength Qnty SIG Indications Ordering Provider Proair HFA 05/17 Active Aerosol 108(90Bas 1unit 2 Puffs PO Q e) s 4HR prn Gauss, mcg/Act M.D. Omeprazole 03/[address] 20mg 180ca take 2 K21.9 John ps capsules by MD Sydnee mouth daily for gastroesophag eal reflux disease Multivitamins 10/22 Active Tablets 100ta 1 po qd Mauri F. /2012 bs MD [place] Vitamin D 02/24 Active Capsules 1000Unit 100ca 1 po qd 268.9 Mauri FJohn /2011 ps MD [place] Calcium 600 + 02/24 Active Tablets 600-400mg 200ta 1 po bid 268.9 Mauri F. D -Unit bs MD [place]nee Cialis 10/25 Active Tablets 20mg 24tab one by mouth N52.01 Mauri Kerr /2008 s prn MD [place] Lunesta 04/16 Active Tablets 3mg 30tab 1 by mouth Mauri FJohn /2005 s every night MD Sydnee at bedtime as needed Crestor Active Tablets 40mg 90tab tab 1 by Mauri FJohn / s mouth every MD [place]nee evening Azithromycin 08/11 Hx Tablets 250mg 6tabs 2 by mouth today, 1 by Sydnee, - mouth day 2 M.D. 05/17 thru Omeprazole 11/[address] 20mg 90cap 1 by mouth 530.81 Mauri FJohn s every day MD [place]nee - 03/15 Prozac 08/04 Hx Capsules 20mg 90cap 1 po qd F32.9 s Eran Randhawa MRusty 05/17 Fiber Complete 12/30 Hx Tablets 100ta 1 by mouth 455.6 Mauri Kerr /2013 bs three times a MD Sydnee - day with 8 oz 01/28 Colace 12/30 Hx Capsules 100mg 100ca 2 po qd 455.6 Mauri Kerr /2013 ps MD [place] - 01/28 Clotrimazole/B 02/17 Hx Cream 1-0.05% 45gm apply bid 110.3 Mauri Kerr etamethasone /2012 MD [place] Dipropionate - 06/09 Proair HFA 10/22 Hx Aerosol 108(90Bas 1unit 2 Puffs PO Q Mauri FJohn e) s 4HR prn MD [place] - mcg/Act 06/09 Soma 06/11 Hx Tablets 350mg 30tab 1 po bid Mauri F. s MD [place] - 10/22 Hydrocodone/Ac 06/11 Hx Tablets 5-325mg 60tab tab1 poq 6 hr Mauri FJohn etaminophen s prn painSydnee MD - 10/22 [...] 27.5mcg/S 3unit 1 spray each Mauri F. pray s nostril q day MD [place]nee - 06/09 E.E.S. 400 12/12 Hx Tablets 400mg 20tab 1 po bid 460.00 Mauri F. s MD [place] - 12/23 Proair HFA 08/22 Hx Aerosol 108(90Bas 3unit 2 Puffs PO Q Mauri F. e) mcg/ac s 4HR prn MD [place] - 10/22 Albuterol 07/13 Hx Nebulizer (2.5mg/3M 120un Inhale qid Mauri FJohn Sulfate /2008 L) 0.083% dwight Randhawa MD - 08/22 Albuterol 07/11 Hx Nebulizer (5mg/ML) 100un 1 Q 4HR prn Mauri FJohn Sulfate /2008 0.5% dwight Randhawa MD - [...] 16Oz one 486 Mauri F. With Codeine tablespoon po MD Sydnee - [facility] prn cough 08/22 Diflucan 06/21 Hx Tablets [...] With Codeine tablespoon po MD Sydnee - [facility] prn cough 04/16 Albuterol 09/06 Hx Aerosol 90mcg/Dos 6unit 2 puff qid Mauri F. Inhalation /2005 e tio Randhawa MD - 12/20 Lipitor 09/06 Hx Tablets 80mg 40tab /2 by mouth Grace s every day Eran Randhawa M.D. 01/28 Benadryl 09/06 Hx Capsules 25mg 100ca 1 PO prn as Mauri F. /2005 ps Directed MD Sydnee - 09/11 Advair Diskus 09/06 Hx Inhaler 500mcg;50 6unit 1 puff bid Muari F. /2006 mcg tio Randhawa MD - 12/20 Cialis 09/06 Hx Tablets 20mg 6tabs one po prn AD Mauri F. /2005 MD [place] - 12/20 Cialis Hx Tablets 20mg 18tab one po prn AD Mauri F. /0000 tio Randhawa MD - 05/11 Albuterol Hx Aerosol 90mcg/Dos 2unit 2 puff qid Mauri F. Inhalation /0000 e tio Randhawa MD - 05/11 Advair Diskus 00 Hx Inhaler 500mcg;50 6unit 1 puff bid Grace /0000 Eran Cole M.D. 08/27 Proventil HFA 00 Hx Aerosol 108mcg/Ac 6unit 2 Puffs qid Mauri F. /0000 t s vira Randhawa MD - 08/22 Medications Administered in Office Medication Date Status Form Strength Qnty SIG Indications Ordering Provider H1N1 Administered Injection Nurse Administration 010 -Use Immunizations CPT Code Status Date Vaccine Lot # [id number] Given 04/08/2018 Influenza Virus (Afluria) Split Virus 3 Years [id number] Of Age And Older 85039 Given 04/08/2018 Pneumovax Polyvalent Inj Im Q2037 Given 05/17/2016 Influenza Vaccine (Fluvirin) 3 Years Of Age Or [id number] Older Q2035 Given 04/19/2015 Influenza Virus (Afluria) Split Virus 3 Years [id number] Of Age And Older Q2037 Given 05/11/2014 Influenza Vaccine (Fluvirin) 3 Years Of Age Or Older [id number] Given 06/09/2013 Influenza Vaccine (Fluvirin) 3 Years Of Age Or Older [id number] Given 08/07/2012 Influenza Vaccine (Fluvirin) 3 Years Of Age Or Older Q2036 Given 05/16/2011 Flulaval [id number] 48883 Given 06/13/2010 Influenza Vaccine 57955 Given 08/22/2009 Tetanus Shot [id number] 00960 Given 04/20/2009 Influenza Vaccine [id number] 84941 Given 05/11/2008 Influenza Vaccine 88693 Given 08/08/2004 Influenza Vaccine 34180 Given 07/29/2004 Influenza Vaccine 52932 Given 09/26/1998 DT Immunization DIP/Tet (History Only) [...] Lab Cholesterol 163 mg/dL <[address] [place], [place] [id number] [phone] HDL Cholesterol 68 mg/dL >40 Cholesterol/HDL Ratio 2.4 CALC <5.0 LDL Chol,Calculated 81 mg/dL 0-100 2 Triglycerides 59 mg/dL <150 Non-HDL Cholesterol 95 mg/dL <130 3 Lipid Panel 02/07/2018 [facility] Cholesterol 149 mg/dL <[address] [place], [place] [address] [phone] HDL Cholesterol 66 mg/dL >40 Cholesterol/HDL Ratio 2.3 CALC <5.0 LDL Chol,Calculated 67 mg/dL 0-100 4 Triglycerides 75 mg/dL <150 Non-HDL Cholesterol 83 mg/dL <130 5 Hepatic Function 05/13/2015 [facility] Alkaline Phosphatase 50 U/L 40- [address] [place] [id number] [phone] Ast 32 U/L 10-35 Alt 52 U/L High 9-46 Bilirubin,Total 0.7 mg/dL 0.2-1.2 Bilirubin,Direct 0.1 mg/dL < Or=0.2 Protein,Total 7.1 g/dL 6.1-8.1 Albumin 4.7 g/dL 3.6-5.1 Globulin,Calculated 2.4 g/dL 1.9-3.7 A/G Ratio 1.9 1.0-2.5 Laboratory 05/13/2015 [facility] Vitamin 31 30-100 6 test finding [address] D,25-Hydroxy,Total,Immunoassay NG/[place] [address] [phone] CMP W/O Egfr 03/21/2015 [facility] Sodium 136 135-[address] mmol/[place] [address] [phone] Potassium 3.7 mmol/L 3.5-5.3 Chloride 100 mmol/L [...] Lab Cholesterol 217 mg/dL High 125-[address] [place] [address] [phone] HDL Cholesterol 55 mg/dL > Or=40 Cholesterol/HDL Ratio 3.9 < Or=5.0 LDL Chol,Calculated 113 mg/dL <130 9 Triglycerides 247 mg/dL High <150 Non-HDL Cholesterol 162 mg/dL High 10 TSH & T4,Free 03/21/2015 [facility] TSH 2.00 mIU/L 0.40-4.[address] [place] [address] [phone] T4,Free 1.1 ng/dL 0.8-1.8 CBC W/ Diff & PLT 03/21/2015 [facility] WBC 4.9 thous/L 3.8-10.[address] [place] [address] [phone] RBC 4.84 mill/L 4.20-5.80 Hemoglobin 15.4 g/dL 13.2-17.1 Hematocrit 45.4 % 38.5-50.0 MCV 93.7 FL 80.0-100.0 MCH 31.9 pg 27.0-33.0 MCHC 34.0 g/dL 32.0-36.0 RDW 12.5 % 11.0-15.0 Platelet Count 194 thous/L 140-400 Platelet Sufficiency PENDING MPV 8.0 FL 7.5-11.5 Neutrophils,Absolute 3040 cells/L 7317-5740 Bands,Absolute PENDING Metamyelocytes,Absolute PENDING Myelocytes,Absolute PENDING Promyelocytes,Absolute [...] [facility] Amylase,Serum 62 U/L 21-[address] [place] [address] [phone] Lipase,Serum 36 U/L 7-60 Laboratory 03/21/2015 [facility] Testosterone,Total,LC/MS/MS 341 250- 1100 11 test finding [address] ng/[place] [address] [phone] PSA,Total 0.3 NG/ML 0.0-4.0 12 Lipid Panel 11/05/2014 [facility] Cholesterol 197 mg/dL 125-[address] [place] [address] [phone] HDL Cholesterol 64 mg/dL > Or=40 Cholesterol/HDL Ratio 3.1 < Or=5.0 LDL Chol,Calculated 108 mg/dL <130 13 Triglycerides 123 mg/dL <150 Non-HDL Cholesterol 134 mg/dL 14 Lipid Panel 05/06/2014 [facility] Cholesterol 189 mg/dL 125-[address] [place] [address] [phone] HDL Cholesterol 61 mg/dL > Or=40 Cholesterol/HDL Ratio 3.1 < Or=5.0 LDL Chol,Calculated 97 mg/dL <130 15 Triglycerides 153 mg/dL High <150 Non-HDL Cholesterol 128 mg/dL 16 Laboratory test 05/06/2014 [facility] Magnesium 2.0 mg/dL 1.5-2.[address] [place] [address] [phone] Laboratory test 02/05/2014 [facility] Magnesium 1.9 mg/dL 1.5-2.[address] [place] [address] [phone] Lipid Panel 02/05/2014 [facility] Cholesterol 203 mg/dL High 125-[address] [place] [address] [phone] HDL Cholesterol 58 mg/dL > Or=40 Triglycerides 179 mg/dL High <150 Non-HDL Cholesterol 146 mg/dL 17 Cholesterol/HDL Ratio 3.5 < Or=5.0 LDL Chol,Calculated 109 mg/dL <130 18 Laboratory 02/05/2014 [facility] Glucose,Random,Plasma 105 <140 test finding [address] mg/[place] [address] [phone] Laboratory 09/24/2013 [facility] PSA,Total 0.3 0.0-4.0 19 test finding [address] NG/ML [place], [place] [address] [phone] Testosterone,Total,LC/MS/MS 389 ng/dL 250-1100 20 Comp Metabolic Panel 09/24/2013 [facility] Sodium 141 mmol/L 135-[address] [place] [address] [phone] Potassium 4.2 mmol/L 3.5-5.3 Chloride 105 mmol/L [...] 1.9-3.7 A/G Ratio 2.2 1.0-2.5 Egfr Non-Afr. Thai 82 ML/MIN/1.73M2 > Or=60 Egfr 95 ML/MIN/1.73M2 > Or=60 Lipid Panel 09/24/2013 [facility] Cholesterol 176 mg/dL 125-[address] [place] [address] [phone] HDL Cholesterol 57 mg/dL > Or=40 Cholesterol/HDL Ratio 3.1 < Or=5.0 LDL Chol,Calculated 96 mg/dL <130 23 Triglycerides 117 mg/dL <150 Non-HDL Cholesterol 119 mg/dL 24 CBC W/ Diff & PLT 09/24/2013 [facility] WBC 5.5 thous/L 3.8-10.[address] [place] [address] [phone] RBC 4.97 mill/L 4.20-5.80 Hemoglobin 15.4 g/dL 13.2-17.1 Hematocrit 45.3 % 38.5-50.0 MCV 91.2 FL 80.0-100.0 MCH 30.9 pg 27.0-33.0 MCHC 33.9 g/dL 32.0-36.0 RDW 12.8 % 11.0-15.0 Platelet Count 223 thous/L 140-400 Neutrophils,Absolute 3110 cells/L 7520-4236 Lymphocytes,Absolute 1740 cells/L 850-3900 Monocytes,Absolute 450 cells/L 200-950 Eosinophils,Absolute 150 cells/L 15-500 Basophils,Absolute 30 cells/L 0-200 Total Neutrophils,% 57 % Not Established Total Lymphocytes,% 32 % Not Established Monocytes,% 8 % Not Established Eosinophils,% 3 % Not Established Basophils,% 0 % Not Established TSH & T4,Free 09/24/2013 [facility] TSH 1.61 mIU/L 0.40-4.50 [address] [facility] [place], [place] [address] [phone] T4,Free 1.1 ng/dL 0.8-1.8 Lipid Panel 06/04/2013 [facility] Cholesterol 178 mg/dL 125-200 [address] [place] [address] [phone] HDL Cholesterol 68 mg/dL > Or=40 Cholesterol/HDL Ratio 2.6 < Or=5.0 LDL Chol,Calculated 89 mg/dL <130 25 Triglycerides 103 mg/dL <150 Non-HDL Cholesterol 110 mg/dL 26 Hepatic Function 06/04/2013 [facility] Alkaline Phosphatase 46 U/L 40- 115 Panel [address] [place] [address] [phone] Ast 27 U/L 10-35 Alt 38 U/L 9-46 Bilirubin,Total 0.4 mg/dL 0.2-1.2 Bilirubin,Direct 0.1 mg/dL < Or=0.2 Protein,Total 7.0 g/dL 6.1-8.1 Albumin 4.6 g/dL 3.6-5.1 Globulin,Calculated 2.4 g/dL 1.9-3.7 A/G Ratio 1.9 1.0-2.5 Laboratory test 02/06/2013 [facility] Direct LDL 88 mg/dL <130 [address] [place] [address] [phone] Hepatic Function 02/06/2013 [facility] Alkaline 47 U/L 40-[address] [place] [address] [phone] Ast 32 U/L 10-35 Alt 37 U/L 9-46 Bilirubin,Total 0.6 mg/dL 0.2-1.2 Bilirubin,Direct 0.1 mg/dL < Or=0.2 Protein,Total 6.9 g/dL 6.1-8.1 Albumin 4.5 g/dL 3.6-5.1 Globulin,Calculated 2.4 g/dL 1.9-3.7 A/G Ratio 1.9 1.0-2.5 Basic Metabolic Panel 11/25/2012 [facility] Glucose 94 mg/dL 76-[address] [place] [address] [phone] BUN 16 mg/dL 5-23 Creatinine 0.8 mg/dL [...] Count 4.9 K/uL 3.4-10.[address] [place] [address] [phone] Red Blood Count 4.79 M/uL 4.20-5.80 Hemoglobin [...] Urine Color YELLOW Yellow [address] [place] [address] [phone] Urine Clarity CLEAR Clear Urine Glucose - Dipstick NEGATIVE mg/dL Negative Urine Bilirubin - Dipstick NEGATIVE Negative Urine Ketone NEGATIVE mg/dL Negative Urine Specific [place] 1.010 1.010-1.030 Urine Blood NEGATIVE Negative Urine PH 6.0 Low 6.5-7.5 Urine Protein - Dipstick NEGATIVE mg/dL Negative Urine Urobilinogen - Dipstick 0.2 E.U./dL 0.2-1.0 Urine Nitrite - Dipstick NEGATIVE Negative Urine Leuk Esterase NEGATIVE Negative Laboratory test 08/13/2012 [facility] Calcium 8.9 mg/dL 8.6-10.[address] [place] [address] [phone] Laboratory test 08/13/2012 [facility] Magnesium 1.8 mg/dL 1.5-2.[address] [place] [address] [phone] TSH 1.33 mIU/L 0.40-4.50 T4,Free 1.1 ng/dL 0.8-1.8 29 PSA,Total 0.3 NG/ML 0.0-4.0 30 Basic Metabolic Panel 08/13/2012 [facility] Sodium 136 mmol/L 135-[address] [place] [address] [phone] Potassium 4.1 mmol/L 3.5-5.3 Chloride 102 mmol/L 98-110 Carbon Dioxide 26 mmol/L 19-30 Calcium 8.9 mg/dL 8.6-10.3 Glucose 118 mg/dL High 65-99 31 Urea Nitrogen 15 mg/dL 7-25 Creatinine 0.87 mg/dL 0.70-1.33 32 BUN/Creatinine Ratio 16.9 6-22 Egfr Non-Afr. Thai 96 ML/MIN/1.73M2 > Or=60 Egfr 112 ML/MIN/1.73M2 > Or=60 Hepatic Function 08/13/2012 [facility] Alkaline Phosphatase 49 U/L 40- [address] [place], [place] [address] [phone] Ast 38 U/L High 10-35 Alt 44 U/L 9-60 Bilirubin,Total 0.5 mg/dL 0.2-1.2 Bilirubin,Direct 0.1 mg/dL < Or=0.2 Protein,Total 6.6 g/dL 6.1-8.1 Albumin 4.4 g/dL 3.6-5.1 Globulin,Calculated 2.2 g/dL 1.9-3.7 A/G Ratio 2.0 1.0-2.5 Laboratory test 08/13/2012 [facility] Phosphorus 3.1 mg/dL 2.5-4.[address] [place] [address] [phone] Lipid Panel 08/13/2012 [facility] Cholesterol 185 mg/dL 125-[address] [place] [address] [phone] HDL Cholesterol 71 mg/dL > Or=40 Cholesterol/HDL Ratio 2.6 < Or=5.0 LDL Chol,Calculated 87 mg/dL <130 33 Triglycerides 133 mg/dL <150 Non-HDL Cholesterol 114 mg/dL 34 Lipid Panel 06/09/2012 [facility] Cholesterol 215 mg/dL High 125-[address] [place], [place] [address] [phone] HDL Cholesterol 67 mg/dL > Or=40 Cholesterol/HDL Ratio 3.2 < Or=5.0 LDL Chol,Calculated 121 mg/dL <130 35 Triglycerides 136 mg/dL <150 Non-HDL Cholesterol 148 mg/dL 36 Vitamin D, 25 08/27/2011 [facility] Vitamin 10 ng/mL Low 30-[address] D,25-Oh,[place] [address] [phone] Vitamin D,25-Oh,D3 10 ng/mL Vitamin D,25-Oh,D2 <4 ng/mL 37 TSH & T4,Free 08/27/2011 [facility] TSH 1.29 mIU/L 0.40-4.[address] [place] [address] [phone] T4,Free 1.2 ng/dL 0.8-1.8 Laboratory test 08/27/2011 [facility] PSA,Total 0.3 NG/ML 0.0-4.0 [address] [place], [place] [address] [phone] Testosterone,Total,Males 320 ng/dL 241-827 39 Comp Metabolic Panel 08/27/2011 [facility] Sodium 140 mmol/L 135-[address] [place], [place] [address] [phone] Potassium 3.9 mmol/L 3.5-5.3 Chloride 103 mmol/L [...] 2.1-3.7 A/G Ratio 2.0 1.0-2.1 Egfr Non-Afr. Thai 96 ML/MIN/1.73M2 > Or=60 Egfr 111 ML/MIN/1.73M2 > Or=60 CBC W/ Diff & PLT 08/27/2011 [facility] WBC 4.5 thous/L 3.8-10.[address] [place] [address] [phone] RBC 4.74 mill/L 4.20-5.80 Hemoglobin 15.1 g/dL 13.2-17.1 Hematocrit 44.9 % 38.5-50.0 MCV 94.9 FL 80.0-100.0 MCH 31.8 pg 27.0-33.0 MCHC 33.5 g/dL 32.0-36.0 RDW 12.7 % 11.0-15.0 Platelet Count 216 thous/L 140-400 Neutrophils,Absolute 2560 cells/L [phone] Lymphocytes,Absolute 1430 cells/L [phone] Monocytes,Absolute 380 cells/L 200-950 Eosinophils,Absolute 110 cells/L 15-500 Basophils,Absolute 30 cells/L 0-200 Total Neutrophils,% 57 % 38-80 Total Lymphocytes,% 32 % 15-49 Monocytes,% 8 % 0-13 Eosinophils,% 2 % 0-8 Basophils,% 1 % 0-2 Hepatic Function 08/27/2011 [facility] Alkaline Phosphatase 57 U/L 40- [address] [place] [address] [phone] Ast 33 U/L 10-35 Alt 39 U/L 9-60 Bilirubin,Total 0.4 mg/dL 0.2-1.2 Bilirubin,Direct 0.1 mg/dL < Or=0.2 Protein,Total 7.3 g/dL 6.2-8.3 Albumin 4.9 g/dL 3.6-5.1 Globulin,Calculated 2.4 g/dL 2.1-3.7 A/G Ratio 2.0 1.0-2.1 Laboratory 08/27/2011 [facility] LDL Cholesterol,Direct 101 <130 42 test finding [address] mg/dL [place], [place] [id number] [phone] Throat-Beta 07/20/2011 Vital[facility] M -------- [address] -------- [place] [address] <SEE [phone] NOTE> Laboratory 05/01/2011 [facility] LDL Cholesterol,Direct 83 mg/dL <130 44 test finding [address] [place], [place] [address] [phone] Hepatic 05/01/2011 [facility] Alkaline Phosphatase 48 U/L 40-115 Function Panel [address] [place], [place] [address] [phone] Ast 28 U/L 10-35 Alt 45 U/L 9-60 Bilirubin,Total 0.7 mg/dL 0.2-1.2 Bilirubin,Direct 0.1 mg/dL < Or=0.2 Protein,Total 6.8 g/dL 6.2-8.3 Albumin 4.5 g/dL 3.6-5.1 Globulin,Calculated 2.3 g/dL 2.1-3.7 A/G Ratio 2.0 1.0-2.1 Laboratory 10/17/2010 [facility] LDL Cholesterol,Direct 69 mg/dL <130 45 test finding [address] [place], [place] [address] [phone] Hepatic 10/17/2010 [facility] Alkaline Phosphatase 43 U/L 40-115 Function Panel [address] [place], [place] [address] [phone] Ast 27 U/L 10-35 Alt 27 U/L 9-60 Bilirubin,Total 0.5 mg/dL 0.2-1.2 Bilirubin,Direct 0.1 mg/dL < Or=0.2 Protein,Total 6.6 g/dL 6.2-8.3 Albumin 4.4 g/dL 3.6-5.1 Globulin,Calculated 2.2 g/dL 2.1-3.7 A/G Ratio 2.0 1.0-2.1 Lipid Panel 07/20/2010 [facility] Cholesterol 200 mg/dL 125-[address] [place] [address] [phone] HDL Cholesterol 55 mg/dL > Or=40 Triglycerides 305 mg/dL High <150 Cholesterol/HDL Ratio 3.6 < Or=5.0 LDL Chol,Calculated 84 mg/dL <130 46 Hepatic Function 07/20/2010 [facility] Alkaline Phosphatase 54 U/L 40- [address] [place] [address] [phone] Ast 28 U/L 10-35 Alt 40 U/L 9-60 Bilirubin,Total 0.4 mg/dL 0.2-1.2 Bilirubin,Direct 0.1 mg/dL < Or=0.2 Protein,Total 7.3 g/dL 6.2-8.3 Albumin 4.7 g/dL 3.6-5.1 Globulin,Calculated 2.6 g/dL 2.1-3.7 A/G Ratio 1.8 1.0-2.1 Hepatic Function 05/29/2010 [facility] Alkaline Phosphatase 55 U/L 40- [address] [place] [address] [phone] Ast 37 U/L High 10-35 Alt 48 U/L 9-60 Bilirubin,Total 0.6 mg/dL 0.2-1.2 Bilirubin,Direct 0.1 mg/dL < Or=0.2 Protein,Total 7.3 g/dL 6.2-8.3 Albumin 4.8 g/dL 3.6-5.1 Globulin,Calculated 2.5 g/dL 2.1-3.7 A/G Ratio 1.9 1.0-2.1 Lipid Panel 05/29/2010 [facility] Cholesterol 240 mg/dL High 125-[address] [place] [address] [phone] HDL Cholesterol 67 mg/dL > Or=40 Triglycerides 153 mg/dL High <150 Cholesterol/HDL Ratio 3.6 < Or=5.0 LDL Chol,Calculated 142 mg/dL High <130 47 Lipid Panel 12/23/2009 [facility] Cholesterol 194 mg/dL 125-[address] [place] [address] [phone] HDL Cholesterol 56 mg/dL > Or=40 Triglycerides 201 mg/dL High <150 Cholesterol/HDL Ratio 3.5 < Or=5.0 LDL Chol,Calculated 98 mg/dL <130 48 Hepatic Function 12/23/2009 [facility] Alkaline Phosphatase 54 U/L 40- [address] [place] [address] [phone] Ast 28 U/L 10-35 Alt 30 U/L 9-60 Bilirubin,Total 0.5 mg/dL 0.2-1.2 Bilirubin,Direct 0.1 mg/dL < Or=0.2 Protein,Total 6.9 g/dL 6.2-8.3 Albumin 4.5 g/dL 3.6-5.1 Globulin,Calculated 2.4 g/dL 2.1-3.7 A/G Ratio 2.0 1.0-2.1 Hepatic Function 08/09/2009 [facility] Alkaline Phosphatase 50 U/L 40- [address] [place] [address] [phone] Ast 31 U/L 10-35 Alt 31 U/L 9-60 Bilirubin,Total 0.6 mg/dL 0.2-1.2 Bilirubin,Direct 0.1 mg/dL < Or=0.2 Protein,Total 6.7 g/dL 6.2-8.3 Albumin 4.6 g/dL 3.6-5.1 Globulin,Calculated 2.1 g/dL 2.1-3.7 A/G Ratio 2.2 High 1.0-2.1 TSH & T4,Free 08/09/2009 [facility] TSH,3RD 1.80 mIU/L 0.40-4.[address] [place], [place] [address] [phone] T4,Free 1.0 ng/dL 0.8-1.8 Comp Metabolic Panel 08/09/2009 [facility] Sodium 138 mmol/L 135-[address] [place] [address] [phone] Potassium 4.3 mmol/L 3.5-5.3 Chloride 104 mmol/L [...] A/G Ratio 2.2 High 1.0-2.1 Egfr Non-Afr. Thai >60 ML/MIN/1.73M2 > Or=60 Egfr >60 ML/MIN/1.73M2 > Or=60 Laboratory test 08/09/2009 [facility] PSA,Total 0.3 NG/ML 0.0-4.0 [address] [place] [address] [phone] Lipid Panel 08/09/2009 [facility] Cholesterol 176 mg/dL 125-[address] [place], [place] [address] [phone] HDL Cholesterol 69 mg/dL > Or=40 Triglycerides 99 mg/dL <150 Cholesterol/HDL Ratio 2.6 < Or=5.0 LDL Chol,Calculated 87 mg/dL <130 51 Lipid Panel 02/07/2009 [facility] Cholesterol 166 mg/dL 125-[address] [place] [address] [phone] HDL Cholesterol 62 mg/dL > Or=40 Triglycerides 105 mg/dL <150 Cholesterol/HDL Ratio 2.7 < Or=5.0 LDL Chol,Calculated 83 mg/dL <130 52 Hepatic Function 02/07/2009 [facility] Alkaline Phosphatase 50 U/L 40- [address] [place] [address] [phone] Ast 26 U/L 10-35 Alt 33 U/L 9-60 Bilirubin,Total 0.5 mg/dL 0.2-1.2 Bilirubin,Direct 0.1 mg/dL < Or=0.2 Protein,Total 6.9 g/dL 6.2-8.3 Albumin 4.4 g/dL 3.6-5.1 Globulin,Calculated 2.5 g/dL 2.1-3.7 A/G Ratio 1.8 1.0-2.1 Lipid Panel 10/11/2008 [facility] Cholesterol 165 mg/dL 125-[address] [place], [place] [address] [phone] HDL Cholesterol 59 mg/dL > Or=40 Triglycerides 121 mg/dL <150 Cholesterol/HDL Ratio 2.8 < Or=5.0 LDL Chol,Calculated 82 mg/dL <130 53 Hepatic Function 10/11/2008 [facility] Alkaline Phosphatase 42 U/L 40- [address] [place] [address] [phone] Ast 22 U/L 10-35 Alt 31 U/L 9-60 Bilirubin,Total 0.5 mg/dL 0.2-1.2 Bilirubin,Direct 0.1 mg/dL < Or=0.2 Protein,Total 6.8 g/dL 6.2-8.3 Albumin 4.5 g/dL 3.6-5.1 Globulin,Calculated 2.3 g/dL 2.1-3.7 A/G Ratio 2.0 1.0-2.1 Laboratory test 07/09/2008 [facility] PSA,Total 0.4 NG/ML 0.0-4.[address] [place], [place] [address] [phone] Lipid Panel 07/09/2008 [facility] Cholesterol 174 mg/dL 125-[address] [place], [place] [id number] [phone] HDL Cholesterol 65 mg/dL > Or=40 Cholesterol/HDL Ratio 2.7 < Or=5.0 LDL Chol,Calculated 83 mg/dL <130 54 Triglycerides 132 mg/dL <150 TSH & T4,Free 07/09/2008 [facility] TSH,3RD 1.93 mU/L 0.40-4.[address] [place] [address] [phone] T4,Free 1.1 ng/dL 0.8-1.8 Comp Metabolic Panel 07/09/2008 [facility] Sodium 142 mmol/L 135-[address] [place] [address] [phone] Potassium 4.3 mmol/L 3.5-5.3 Chloride 103 mmol/L [...] 2.1-3.7 A/G Ratio 1.7 1.0-2.1 Egfr Non-Afr. Thai >60 ML/MIN/1.73M2 > Or=60 Egfr >60 ML/MIN/1.73M2 > Or=60 CBC W/ Diff & PLT 07/09/2008 [facility] WBC 5.8 thous/L 3.8-10.8 [address] [facility] [place] [address] [phone] RBC 4.76 mill/L 4.20-5.80 Hemoglobin 15.2 g/dL 13.2-17.1 Hematocrit 44.0 % 38.5-50.0 MCV 92.4 FL 80.0-100.0 MCH 32.0 pg 27.0-33.0 MCHC 34.7 g/dL 32.0-36.0 RDW 11.9 % 11.0-15.0 Platelet Count 234 thous/L 140-400 Platelet Sufficiency NORMAL Normal Neutrophils,Absolute 3560 cells/L [phone] Bands,Absolute DNR cells/L 0-750 Metamyelocytes,Absolute DNR cells/L [...] [facility] Cholesterol 169 mg/dL 125-200 [address] [place] [address] [phone] HDL Cholesterol 59 mg/dL > Or=40 Triglycerides 120 mg/dL <150 Cholesterol/HDL Ratio 2.9 < Or=5.0 LDL Chol,Calculated 86 mg/dL <130 56 Hepatic Function 04/19/2008 [facility] Alkaline Phosphatase 50 U/L 40- 115 Panel [address] [place] [address] [phone] Ast 32 U/L 10-35 Alt 42 U/L 9-60 Bilirubin,Total 0.8 mg/dL 0.2-1.2 Bilirubin,Direct 0.2 mg/dL < Or=0.2 Protein,Total 7.5 g/dL 6.2-8.3 Albumin 4.7 g/dL 3.6-5.1 Globulin,Calculated 2.8 g/dL 2.1-3.7 A/G Ratio 1.7 1.0-2.1 CBC W/ Diff & PLT 06/27/2007 [facility] WBC 4.9 thous/L 3.8-10.[address] [place] [address] [phone] RBC 4.82 mill/L 4.20-5.80 Hemoglobin 15.4 g/dL 13.2-17.1 Hematocrit 45.0 % 38.5-50.0 MCV 93.3 FL 80.0-100.0 MCH 32.0 pg 27.0-33.0 MCHC 34.3 g/dL 32.0-36.0 RDW 12.1 % 11.0-15.0 Platelet Count 212 thous/L 140-400 Platelet Sufficiency NORMAL Normal Neutrophils,Absolute 2890 cells/L [phone] Bands,Absolute DNR cells/L 0-750 Metamyelocytes,Absolute DNR cells/L [...] Phosphatase 48 U/L 40- [address] [place] [address] [phone] Ast 27 U/L 10-35 Alt 40 U/L 9-60 Bilirubin,Total 0.8 mg/dL 0.2-1.2 Bilirubin,Direct 0.1 mg/dL < Or=0.2 Protein,Total 6.9 g/dL 6.2-8.3 Albumin 4.3 g/dL 3.6-5.1 TSH & T4,Free 06/27/2007 [facility] TSH,3RD 1.86 mU/L 0.40-4.[address] [place] [address] [phone] T4,Free 1.2 ng/dL 0.8-1.8 Comp Metabolic Panel 06/27/2007 [facility] Sodium 138 mmol/L 135-[address] [place] [address] [phone] Potassium 4.3 mmol/L 3.5-5.3 Chloride 101 mmol/L [...] 2.1-3.7 A/G Ratio 1.7 1.0-2.1 Egfr Non-Afr. Thai >60 ML/MIN/1.7 > Or=60 Egfr >60 ML/MIN/1.7 > Or=60 Lipid Panel 06/27/2007 [facility] Cholesterol 173 mg/dL 125-[address] [place] [address] [phone] HDL Cholesterol 65 mg/dL > Or=40 58 Cholesterol/HDL Ratio 2.7 < Or=5.0 LDL Chol,Calculated 92 mg/dL <130 59 Triglycerides 80 mg/dL <150 Laboratory test 06/27/2007 [facility] PSA,Total 0.4 NG/ML 0.0-4.[address] [place] [address] [phone] Lipid Panel 02/10/2007 [facility] Cholesterol 186 mg/dL 125-[address] [place] [address] [phone] HDL Cholesterol 54 mg/dL > Or=40 61 Cholesterol/HDL Ratio 3.4 < Or=5.0 LDL Chol,Calculated 100 mg/dL <130 62 Triglycerides 159 mg/dL High <150 Hepatic Function 02/10/2007 [facility] Alkaline Phosphatase 44 U/L 40- [address] [place] [address] [phone] Ast 26 U/L 10-35 Alt 35 U/L 9-60 Bilirubin,Total 0.8 mg/dL 0.2-1.2 Bilirubin,Direct 0.1 mg/dL < Or=0.2 Protein,Total 6.9 g/dL 6.2-8.3 Albumin 4.1 g/dL 3.6-5.1 Laboratory test 10/25/2006 [facility] Rapid Urease NEGATIVE finding [address] [place] [address] [phone] CBC W/ Diff & PLT 08/19/2006 [facility] WBC 4.8 thous/L 3.8-[address] [place] [address] [phone] RBC 4.77 mill/L 4.20-5.80 Hemoglobin 15.2 g/dL 13.2-17.1 Hematocrit 43.6 % 38.5-50.0 MCV 91.5 FL 80.0-100.0 MCH 31.9 pg 27.0-33.0 MCHC 34.9 g/dL 32.0-36.0 RDW 11.9 % 11.0-15.0 Platelet Count 218 thous/L 140-400 Platelet Sufficiency NORMAL Normal Neutrophils,Absolute 2790 cells/L 2549-1006 Bands,Absolute DNR cells/L 0-750 Metamyelocytes,Absolute DNR cells/L [...] [facility] Sodium 138 mmol/L 135-146 [address] [place] [address] [phone] Potassium 4.1 mmol/L 3.5-5.3 Chloride 102 mmol/L [...] PSA,Total 0.4 NG/ML 0.0-4.0 [address] [place] [address] [phone] Lipid Panel 08/19/2006 [facility] Cholesterol 170 mg/dL <[address] [place] [address] [phone] HDL Cholesterol 62 mg/dL >40 66 Cholesterol/HDL Ratio 2.7 <5.0 LDL Chol,Calculated 88 mg/dL <130 67 Triglycerides 99 mg/dL <150 Hepatic Function 08/19/2006 [facility] Alkaline Phosphatase 51 U/L 20- [address] [place] [address] [phone] Ast 25 U/L 3-50 Alt 34 U/L 3-60 Bilirubin,Total 0.8 mg/dL 0.2-1.5 Bilirubin,Direct 0.1 mg/dL 0.0-0.3 Protein,Total 7.1 g/dL 6.0-8.3 Albumin 4.6 g/dL 3.5-4.9 Lipid Panel 08/27/2005 [facility] Cholesterol 147 mg/dL <[address] [place] [address] [phone] HDL Cholesterol 54 mg/dL >40 68 Triglycerides 99 mg/dL <150 Cholesterol/HDL Ratio 2.7 <5.0 LDL Chol,Calculated 73 mg/dL <130 69 Hepatic Function 08/27/2005 [facility] Alkaline Phosphatase 44 U/L 20- [address] [place] [address] [phone] Ast 25 U/L 3-50 Alt 31 U/L 3-60 Bilirubin,Total 0.7 mg/dL 0.2-1.5 Bilirubin,Direct 0.1 mg/dL 0.0-0.3 Protein,Total 7.3 g/dL 6.0-8.3 Albumin 4.4 g/dL 3.5-4.9 1 FASTING 2 LDL-C is now calculated using the Kathy calculation, which is a validated novel method providing better accuracy than the Friedewald equation in the estimation of LDL-C. Nagi AGUDELO et al.TYSON.2013;310(19):8439-3913 Desirable range <100 mg/dL for primary prevention; <70 mg/dL for patients with CHD or diabetic patients with >or=2 CHD risk factors. For additional information, please refer to http://Taxizu.Microtask/faq/QZZ068(This link is being provided for informational/educational purposes [...] the estimation of LDL-C. Nagi SS et al.TYSON.2013;310(19):8562-9582 Desirable range <100 mg/dL for primary prevention; <70 mg/dL for patients with CHD or diabetic patients with >or=2 CHD risk factors. For additional information, please refer to http://Taxizu.Oodrive.Talentology/faq/LMZ581(This link is being provided for informational/educational purposes [...] Vit D, (D2,D3),LC/MS/MS is recommended: Order code 52206 (patients >2 yrs). 7 GLUCOSE REFERENCE RANGE BASED ON FASTING SPECIMEN. 8 The upper reference limit for Creatinine is approximately 13% higher for people identified as -Thai. 9 LDL-CHOLESTEROL RISK CATEGORY* GOAL VERY HIGH (E.G. DIABETES + CVD) <70 MG/DL HIGH (DIABETICS; CHD RISK EQUIVALENTS) <100 MG/DL MODERATELY HIGH (MULTIPLE(2+) RISK FACTORS) <130 MG/DL 0 TO 1 RISK FACTORS <160 MG/DL * NCEP REPORT. CIRCULATION 2004; 110: 227-239 10 Target for non-HDL cholesterol is 30 mg/dL higher than LDL cholesterol target. 11 For more information on this test, go to http://Taxizu.mycujoo/faq/ TotalTestosteroneLCMSMS 12 THIS TEST WAS PERFORMED USING [...] more information on this test, go to http://education.mycujoo/faq/ TotalTestosteroneLCMSMS 21 GLUCOSE REFERENCE RANGE BASED ON FASTING SPECIMEN. 22 The upper reference limit for Creatinine is approximately 13% higher for people identified as -Thai. 23 LDL-CHOLESTEROL RISK CATEGORY* GOAL VERY HIGH [...] OF FREE T4 REAGENT AVAILABLE FROM THE BLUEPRINT CLERK PRODUCES RESULTS THAT ARE APPROXIMATELY 9% HIGHER [...] approximately 13% higher for people identified as -Thai. 33 LDL-CHOLESTEROL RISK CATEGORY* GOAL VERY HIGH [...] IS THE RECOMMENDED ASSAY. THIS TEST CODE (82471U) MUST BE COLLECTED IN A RED-TOP TUBE WITH NO GEL. THE ENDOCRINE SOCIETY RECOMMENDS OBTAINING AT LEAST TWO MORNING (8-10 A.M.) SAMPLES ON DIFFERENT DAYS WHEN SCREENING FOR HYPOGONADISM. 40 GLUCOSE REFERENCE RANGE BASED ON FASTING SPECIMEN. 41 The upper reference limit for Creatinine is approximately 13% higher for people identified as -Thai. 42 LDL-CHOLESTEROL RISK CATEGORY* GOAL VERY HIGH (E.G. DIABETES + CVD) <70 MG/DL HIGH (DIABETICS; CHD RISK EQUIVALENTS) <100 MG/DL MODERATELY HIGH (MULTIPLE(2+) RISK FACTORS) <130 MG/DL 0 TO 1 RISK FACTORS <160 MG/DL * NCEP REPORT. CIRCULATION 2004; 110: 227-239 43 RUN DATE: 07/22/11 [facility] NMI LIVE PAGE 1 RUN TIME: 832 Specimen Inquiry RUN USER: INTERFACE Name: MEHDI HARMON Status: BRANT HOWARDI Re07/20/11 Age/Sex: 55/M Unit#: [id number] Location: : 55 SPEC #: [id number] JETT: 07/20/11-1609 STATUS: TANIKA RERadha #: [id number] RECD: 07/20/[address]: Dmitry AGRAWAL,Radha Doyle SOURCE: THROAT ENTR: 07/20/[address]: Sydnee AGRAWAL,Mauri Kerr [facility]: ORDERED: THROAT-BETA STR ACT WKST: BS 07/22/11 #1 Procedure Result Verified Site > THROAT-BETA STREP CULTURE Final 07/22/11- 08 ML NEGATIVE FOR GROUP A BETA STREPTOCOCCUS ML - [facility] Permit #[id number] [address] [place] [id number] [facility], [address] [place] [address] [facility] Permit #[id number] Umesh Marx M.D. Director Paul Perera M.D. Underwear Finisher 44 LDL-CHOLESTEROL RISK CATEGORY* GOAL VERY HIGH [...] INTERCHANGEABLY. THIS ASSAY WAS PERFORMED USING THE Anvato CHEMILUMINESCENCE METHOD. SERUM PSA LEVELS SHOULD NOT [...] FOR RACE, IF THE PATIENT RACE IS -BAHAMIAN, THE GFR ESTIMATE MUST BE MULTIPLIED BY [...] * NCEP REPORT. CIRCULATION 2004; 110: 227-239 68 HDL REFERENCE RANGES ADULTS [...] 227-239 Procedures Date Code Description Status 03/21/2015 41215 Spirometry Graphic Record/Max Voluntary Vent Completed 03/21/2015 74637 PVR-Atrerial Study Completed 03/21/2015 55807 Holter Monitor Office Completed 03/17/2015 [id number] Bone Mineral Density Test Completed 03/17/2015 90323 Bone Density Completed 03/15/2015 09596 Non-Invcorrotid/Comp /Bilat Study Completed 03/15/2015 24456 Echocardiography Completed 09/24/2013 29985 Bone Density Completed 09/24/2013 84631 EKG-Tracing & Report Completed 09/24/2013 87435 Spirometry Graphic Record/Max Voluntary Vent Completed 09/24/2013 79800 Holter Monitor Office Completed 09/24/2013 17197 PVR-Atrerial Study Completed 09/17/2013 09045 Non-Invcorrotid/Comp /Bilat Study Completed 09/17/2013 46912 Echocardiography Completed 10/09/2012 58630 Non-Invcorrotid/Comp /Bilat Study Completed 10/09/2012 36233 Echocardiography Completed 09/30/2012 21934 Spirometry Graphic Record/Max Voluntary Vent Completed 09/30/2012 59061 Holter Monitor Office Completed 08/27/2011 73640 PVR-Atrerial Study Completed 08/27/2011 44059 Holter Monitor Office Completed 08/27/2011 75844 Spirometry Graphic Record/Max Voluntary Vent Completed 08/23/2011 63174 Bone Density Completed 08/22/2011 99167 Echocardiography Completed 08/22/2011 80572 Non-Invcorrotid/Comp /Bilat Study Completed 10/10/2010 8 Records Completed 12/23/2009 80878 PFT Evaluation Completed 08/09/2009 15360 Non-Invcorrotid/Comp /Bilat Study Completed 08/09/2009 44645 Echocardiography Completed 08/09/2009 07407 Holter Monitor Office Completed 08/09/2009 86707 EKG-Tracing & Report Completed 08/10/2008 84099 Holter Monitor Office Completed 07/09/2008 82970 Non-Invcorrotid/Comp /Bilat Study Completed 07/09/2008 73135 Doppler Color Flow Velocity Completed 07/09/2008 32486 Doppler/ECHO Completed 07/09/2008 43121 ECHO-2D W/Wo M-Mode Completed 07/09/2008 56519 EKG-Tracing & Report Completed 05/11/2008 98867 Injections Thera,Prop,Paula, B12 Completed 06/27/2007 86156 Spirometry Graphic Record/Max Voluntary Vent Completed 06/27/2007 45965 Non-Invcorrotid/Comp /Bilat Study Completed 06/27/2007 95847 Doppler Color Flow Velocity Completed 06/27/2007 77442 Doppler/ECHO Completed 06/27/2007 38899 ECHO-2D W/Wo M-Mode Completed 06/27/2007 58821 Holter Monitor Office Completed 10/25/2006 04184972 Colonoscopy Completed 04/23/2006 53393 Holter Monitor Office Completed 04/23/2006 97412 EKG-Tracing & Report Completed 04/22/2006 32283 Doppler/ECHO Completed 04/22/2006 28304 ECHO-2D W/Wo M-Mode Completed 04/22/2006 86966 Non-Invcorrotid/Comp /Bilat Study Completed 04/22/2006 09958 Doppler Color Flow Velocity Completed 02/19/2005 97024 Holter Monitor Office Completed 10/10/2004 80365 Spirometry Graphic Record/Max Voluntary Vent Completed 10/10/2004 79651 EKG-Tracing & Report Completed 10/02/2004 32266 Doppler Color Flow Velocity Completed 10/02/2004 54610 Doppler/ECHO Completed 10/02/2004 30891 ECHO-2D W/Wo M-Mode Completed 03/21/2004 66649 Spirometry Graphic Record/Max Voluntary Vent Completed Encounters Type Date Location Provider Dx Diagnosis Office Visit 04/08/2018 Main Office Mauri Randhawa MD G47.00 Insomnia, unspecified 2:00p E78.5 Hyperlipidemia, unspecified J45.30 Mild persistent asthma, uncomplicated K21.9 Gastro-esophageal reflux disease without esophagitis I11.9 Hypertensive heart disease without heart failure I65.23 Occlusion and stenosis of bilateral carotid arteries Office Visit 01/28/2018 3:00p Main Office Mauri [...] unspecified Office Visit 10/20/2015 2:00p Main Office Grace Randhawa E78.5 Hyperlipidemia, M.D. unspecified K21.9 Gastro-esophageal reflux disease without esophagitis I11.9 Hypertensive heart disease without heart failure Office Visit 05/18/2015 11:10a Main Office Pia Cespedes8.5 MD Jean unspecified K21.9 Gastro-esophageal reflux disease without esophagitis [...] Office Mauri Randhawa, 424.0 Mitral Valve Disorder MD 433.10 Occlusion & Stenosis Carotid Artery W/O [...] Office Visit 10/30/2010 3:10p Main Office Mauri Ranhdawa, 272.4 Hyperlipidemia Other MD Unspec 307.42 Sleep [...] Office Mauri Randhawa, 433.10 Occlusion & Stenosis MD Carotid Artery W/O Cerebral Infarction 424.0 Mitral [...] Main Office Mauri Randhawa, 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 272.4 Hyperlipidemia Other Unspec 300.00 Anxiety State Unspec 307.42 Sleep Disorder Persistent Initiating Or Maintaining Sleep GENERAL General 477.9 Rhinitis Allergic Cause Unspec Office Visit 10/25/2008 3:00p Main Office Mauri Randhawa, 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 272.4 Hyperlipidemia Other Unspec Office Visit 08/23/2008 10:00a Main Office Mauri Randhawa, 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 300.00 Anxiety State Unspec Office Visit 07/20/2008 3:00p Main Office Mauri Randhawa MD 427.90 Arrhythmia 272.4 Hyperlipidemia Other Unspec 433.10 Occlusion & Stenosis Carotid Artery W/O Cerebral Infarction 607.84 Impotence Organic Origin 307.42 Sleep Disorder Persistent Initiating Or Maintaining Sleep GENERAL General Office Visit 05/25/2008 3:00p Main Office Mauri Randhawa, 272.4 Hyperlipidemia Other MD Unspec 607.84 Impotence Organic Origin GENERAL General [...] Mauri Randhawa, 272.4 Hyperlipidemia Other MD Unspec 272.40 Hyperlipidemia 307.42 Sleep Disorder Persistent [...] Main Office Mauri Randhawa, 307.42 Sleep Disorder Persistent Initiating Or Maintaining Sleep Office Visit 09/25/2005 11:40a Main Office Mauri Randhawa, 466.00 Acute Bronchitis Office Visit 09/11/2005 10:10a Main Office Mauri Randhawa, 272.40 Hyperlipidemia 493.00 Asthma Extrinsic Unspecified 427.90 Arrhythmia 477.9 Rhinitis Allergic Cause Unspec 607.84 Impotence Organic Origin Office Visit 02/26/2005 10:30a Main Office Mauri Randhawa MD 272.40 Hyperlipidemia 785.10 Palpitations 493.00 Asthma Extrinsic Unspecified 427.90 Arrhythmia Office Visit 10/25/2004 2:20p Main Office Mauri Randhawa 493.00 Asthma Extrinsic MD Unspecified 427.90 Arrhythmia Office Visit 10/03/2004 1:30p Main Office Mauri Randhawa MD 382.90 Otitis Media 473.90 Sinusitis Office Visit 06/07/2004 1:40p Main Office Mauri Randhawa, 493.00 Asthma Extrinsic MD Unspecified 786.05 Shortness Of Breath Office Visit 05/09/2004 4:00p Main Office Mauri Randhawa, 719.48 Pain Joint Other Spec MD Sites Office Visit 01/26/2004 2:40p Main Office Mauri Randhawa, 466.00 Acute Bronchitis MD Office Visit 12/23/2003 11:20a Main Office Mauri Randhawa, 272.40 Hyperlipidemia 493.92 Asthma Unspec W/ Acute Exacerbation Plan of Treatment Future Appointment(s):05/20/2018 3:10 pm - Mauri Randhawa MD at Main [facility]6105/2018 - Mauri Randhawa MDG47.00 Insomnia, unspecifiedComments:Discussed sleep habits, methods to induce sleep naturally, role of stimulants and anxiety. Appropriate medication reviewed and side effects, dosage, timing and interactions and precautions discussed. Continue to monitor.E78.5 Hyperlipidemia , unspecifiedComments:Counselled on role of diet and excersize and importance to keep compliance with medication if prescribed and side effects. The importance of routine monitoring of blood lipids and liver tests to managetreatment and avoid side effects were discussed. Usual follow up is 3 months for LFT and Lipid profile. Patient education including dietary guidelines and materials provided.J45.30 Mild persistent asthma, [id number] Gastro-esophageal reflux disease without esophagitisComments: Discussed role of diet and excersize and weight reduction and contribution of common exacerbating factors/ substances such as stress/fatigue/caffeine/nicotine /chocolate/ foods.Signs and symptoms of disease progression discussed as well as necessity to promptly report changes or worsening and the need for medication compliance. Periodic measurement and follow up for serum Magnesium levels while on PPI.I11.9 Hypertensive heart disease without heart failureComments:CONT. TO MONITOR BP, CONT. LOW SALT DIET Discussed lifestyle factors and role of diet and excerns incontrol of disease and treatment goals and targets. Medication side effects and compliance issues addressed as indicated. The importance of ongoing self monitoring of BP and the symptoms of complications such as TIA, CVA and AMI reviewed. The importance of reporting changes in between visits and side effects stressed. monitoring of patient provided BP checks and laboratory tests related to medicationreviewed. Discussed lifestyle factors and role of diet and excerns in control of disease and treatment goals and targets. Medication side effects and compliance issues addressed as indicated. The importance of ongoing self monitoring of BP and the symptoms of complications such as TIA, CVA and AMI reviewed. The importance of reporting changes in between visits and side effects stressed. monitoring of patient provided BP checks and laboratory tests related to medication reviewed.I65.23 Occlusion and stenosis of bilateral carotid arteriesComments: Discussed role of life style choices in dietary fats and exercise plays on evolution of [place] disease and importance of controlling cholesterol. Medications role and side effects in disease progression prevention discussed and need for compliance with prescribed treatment. Follow up testing for progression such as ultrasound surveillance reviewedAllImmunizations/Injections: Pneumovax Polyvalent Inj Im
--- OUTSIDE RECORDS SUMMARY | 2018-04-21 09:47 | XMS REPORT | Continuity of Care Document ---
:1955 External Reference #:[id number] Author Name Myrtle Toure Care Team Providers Name Role Phone Mauri Randhawa MD Primary Care Physician Unavailable Payers Type Date Identification Numbers Payment Provider Subscriber Policy Number: [id number] [employer] Number: [id number] [address] PayID: [id number] [place] [id number] Advance Directives Description No Information Available Problems [...] Randhawa MD Active Onset: 05/16/2011 Angina pectoris Marui Randhawa MD Active Onset: 05/16/2011 Asthma without [...] Date Family Member(s) Problem(s) Comments General Father MS in his 40's , mother pvd Father MS Father due to Heart Disease () Mother [...] Aerosol 108(90Bas 1unit 2 Puffs PO Q Grace /2015 e) s 4HR prn lexie Randhawa/Act M.DJohn Omeprazole 03/[address] 20mg 180ca take 2 K21.9 John ps capsules by MD Sydnee mouth daily for gastroesophag eal reflux disease Multivitamins 10/22 Active Tablets 100ta 1 po qd Mauri F. /2012 bs MD Sydnee Vitamin D 02/24 Active Capsules 1000Unit 100ca 1 po qd 268.9 Mauri FJohn ps MD [place] Calcium 600 + 02/24 Active Tablets 600-400mg 200ta 1 po bid 268.9 Mauri F. D /2012 -Unit bs MD Sydnee Cialis 10/25 Active Tablets 20mg 24tab one by mouth N52.01 Mauri FJohn /2008 s prn MD Sydnee Lunesta 04/16 [...] DR 20mg 90cap 1 by mouth 530.81 John s every day MD Sydnee - 03/15 Prozac 08/04 Hx Capsules 20mg 90cap 1 po qd F32.9 Eran Graham MRusty 05/17 Fiber Complete 12/30 Hx Tablets 100ta 1 by mouth 455.6 Mauri Kerr /2013 bs three times a MD Sydnee - day with 8 oz 01/28 Colace 12/30 Hx Capsules 100mg 100ca 2 po qd 455.6 Mauri Kerr /2013 ps MD Sydnee - 01/28 Clotrimazole/B 02/17 Hx Cream 1-0.05% 45gm apply bid 110.3 Mauri FJohn etamethasone /2012 MD [place]nee Dipropionate - 06/09 [...] 20tab 1 po bid 466.0 Mauri F. Base s MD Sydnee - 05/16 Omeprazole 06/13 [...] (2.5mg/3M 120un Inhale qid Mauri FJohn Sulfate L) 0.083% dwight Randhawa MD - 08/22 [...] With Codeine tablespoon po MD Sydnee - [facility] prn cough 08/22 Diflucan 06/21 Hx Tablets 200mg 7tabs 1 po qd 486 Mauri F. /2008 MD Sydnee - 08/22 Prozac 08/23 Hx Capsules 20mg 90cap 1 PO qd Mauri F. /2008 tio Randhawa MD - 06/09 Cialis 07/20 Hx Tablets 10mg 24tab 1 PO as 607.84 Mauri F. /2007 tio Randhawa MD - 10/25 Prozac 07/20 Hx Capsules 10mg 60cap 1 PO qd Mauri F. /2007 tio Randhawa MD - 08/23 Cialis 05/25 Hx Tablets 5mg 30tab 1 po q day 607.84 Mauri F. /2007 tio Randhawa MD - 07/20 Cialis 05/11 Hx Tablets 10mg 1/2 PO Q Day 607.84 Mauri F. /2007 as Tiesha Ranhdawa MD - 05/25 Naprosyn 03/09 Hx Tablets 375mg 50tab 1 PO bid prn 727.05 Mauri F. /2007 ito Randhawa MD - 07/20 Augmentin 07/18 Hx Tablets 875mg;125 14tab 1 po bid with 466.00 Grace /2005 mg s Eran Mcconnell M.D. 07/27 Levaquin 09/28 Hx Tablets 500mg 3tabs 1 po qd Elyn MD Kim - 04/16 Pce 09/25 Hx Tablets 500mg 20tab One PO bid X 466.00 Mauri F. /2005 s 10Days MD Sydnee - 04/16 Robitussin 09/25 Hx Liquid 16Oz one 466.00 Mauri F. With Codeine tablespoon po MD Sydnee - [facility] prn cough 04/16 Albuterol 09/06 [...] 500mcg;50 6unit 1 puff bid Mauri F. /2006 mcg tio Randhawa MD - [...] Inhaler 500mcg;50 6unit 1 puff bid Grace / Eran Cole M.D. 08/27 Proventil HFA 00/ Hx Aerosol 108mcg/Ac 6unit 2 Puffs qid Mauri F. /0000 t s prabhilash Randhawa MD - 08/22 Medications Administered in Office Medication Date Status Form Strength Qnty SIG Indications Ordering Provider H1N1 Administered Injection Nurse Administration 010 -Use Immunizations CPT Code Status Date Vaccine Lot # [id number] Given 04/08/2018 Influenza Virus (Afluria) Split Virus 3 Years [id number] Of Age And Older 61047 Given 04/08/2018 Pneumovax Polyvalent Inj Im Q2037 Given 05/17/2016 Influenza Vaccine (Fluvirin) 3 Years Of Age Or [id number] Older Q2035 Given 04/19/2015 Influenza Virus (Afluria) Split Virus 3 Years [id number] Of Age And Older Q2037 Given 05/11/2014 Influenza Vaccine (Fluvirin) 3 Years Of Age Or Older [id number] Given 06/09/2013 Influenza Vaccine (Fluvirin) 3 Years Of Age Or Older [id number] Given 08/07/2012 Influenza Vaccine (Fluvirin) 3 Years Of Age Or Older Q2036 Given 05/16/2011 Flulaval [id number] 89339 Given 06/13/2010 Influenza Vaccine 87449 Given 08/22/2009 Tetanus Shot [id number] 50029 Given 04/20/2009 Influenza Vaccine [id number] 61879 Given 05/11/2008 Influenza Vaccine 03311 Given 08/08/2004 Influenza Vaccine 88538 Given 07/29/2004 Influenza Vaccine 25617 Given 09/26/1998 DT Immunization DIP/Tet (History Only) [...] Lab Cholesterol 163 mg/dL <[address] [place] [address] [phone] HDL Cholesterol 68 mg/dL >40 Cholesterol/HDL Ratio 2.4 CALC <5.0 LDL Chol,Calculated 81 mg/dL 0-100 2 Triglycerides 59 mg/dL <150 Non-HDL Cholesterol 95 mg/dL <130 3 Lipid Panel 02/07/2018 [facility] Cholesterol 149 mg/dL <[address] [place], [place] [id number] [phone] HDL Cholesterol 66 mg/dL >40 Cholesterol/HDL Ratio 2.3 CALC <5.0 LDL Chol,Calculated 67 mg/dL 0-100 4 Triglycerides 75 mg/dL <150 Non-HDL Cholesterol 83 mg/dL <130 5 Hepatic Function 05/13/2015 [facility] Alkaline Phosphatase 50 U/L 40- [address] [place] [address] [phone] Ast 32 U/L 10-35 Alt 52 U/L High 9-46 Bilirubin,Total 0.7 mg/dL 0.2-1.2 Bilirubin,Direct 0.1 mg/dL < Or=0.2 Protein,Total 7.1 g/dL 6.1-8.1 Albumin 4.7 g/dL 3.6-5.1 Globulin,Calculated 2.4 g/dL 1.9-3.7 A/G Ratio 1.9 1.0-2.5 Laboratory 05/13/2015 [facility] Vitamin 31 30-100 6 test finding [address] D,25-Hydroxy,Total,Immunoassay NG/[place] [address] [phone] CMP W/O Egfr 03/21/2015 [facility] Sodium 136 135-[address] mmol/[place] [address] [phone] Potassium 3.7 mmol/L 3.5-5.3 Chloride 100 mmol/L [...] Lab Cholesterol 217 mg/dL High 125-[address] [place] [address] [phone] HDL Cholesterol 55 mg/dL > Or=40 Cholesterol/HDL Ratio 3.9 < Or=5.0 LDL Chol,Calculated 113 mg/dL <130 9 Triglycerides 247 mg/dL High <150 Non-HDL Cholesterol 162 mg/dL High 10 TSH & T4,Free 03/21/2015 [facility] TSH 2.00 mIU/L 0.40-4.[address] [place] [address] [phone] T4,Free 1.1 ng/dL 0.8-1.8 CBC W/ Diff & PLT 03/21/2015 [facility] WBC 4.9 thous/L 3.8-10.[address] [place] [address] [phone] RBC 4.84 mill/L 4.20-5.80 Hemoglobin 15.4 g/dL 13.2-17.1 Hematocrit 45.4 % 38.5-50.0 MCV 93.7 FL 80.0-100.0 MCH 31.9 pg 27.0-33.0 MCHC 34.0 g/dL 32.0-36.0 RDW 12.5 % 11.0-15.0 Platelet Count 194 thous/L 140-400 Platelet Sufficiency PENDING MPV 8.0 FL 7.5-11.5 Neutrophils,Absolute 3040 cells/L [phone] Bands,Absolute PENDING Metamyelocytes,Absolute PENDING Myelocytes,Absolute PENDING Promyelocytes,Absolute [...] [facility] Amylase,Serum 62 U/L 21-[address] [place] [address] [phone] Lipase,Serum 36 U/L 7-60 Laboratory 03/21/2015 [facility] Testosterone,Total,LC/MS/MS 341 250- 1100 11 test finding [address] [place] ng/[place] [address] [phone] PSA,Total 0.3 NG/ML 0.0-4.0 12 Lipid Panel 11/05/2014 [facility] Cholesterol 197 mg/dL 125-[address] [place] [address] [phone] HDL Cholesterol 64 mg/dL > Or=40 Cholesterol/HDL Ratio 3.1 < Or=5.0 LDL Chol,Calculated 108 mg/dL <130 13 Triglycerides 123 mg/dL <150 Non-HDL Cholesterol 134 mg/dL 14 Lipid Panel 05/06/2014 [facility] Cholesterol 189 mg/dL 125-[address] [place] [address] [phone] HDL Cholesterol 61 mg/dL > Or=40 Cholesterol/HDL Ratio 3.1 < Or=5.0 LDL Chol,Calculated 97 mg/dL <130 15 Triglycerides 153 mg/dL High <150 Non-HDL Cholesterol 128 mg/dL 16 Laboratory test 05/06/2014 [facility] Magnesium 2.0 mg/dL 1.5-2.5 [address] [place] [address] [phone] Laboratory test 02/05/2014 [facility] Magnesium 1.9 mg/dL 1.5-2.5 finding [address] [place] [address] [phone] Lipid Panel 02/05/2014 [facility] Cholesterol 203 mg/dL High 125-[address] [place] [address] [phone] HDL Cholesterol 58 mg/dL > Or=40 Triglycerides 179 mg/dL High <150 Non-HDL Cholesterol 146 mg/dL 17 Cholesterol/HDL Ratio 3.5 < Or=5.0 LDL Chol,Calculated 109 mg/dL <130 18 Laboratory 02/05/2014 [facility] Glucose,Random,Plasma 105 <140 test finding [address] mg/[place] [address] [phone] Laboratory 09/24/2013 [facility] PSA,Total 0.3 0.0-4.0 19 test finding [address] NG/ML [place], [place] [id number] [phone] Testosterone,Total,LC/MS/MS 389 ng/dL 250-1100 20 Comp Metabolic Panel 09/24/2013 [facility] Sodium 141 mmol/L 135-[address] [place] [address] [phone] Potassium 4.2 mmol/L 3.5-5.3 Chloride 105 mmol/L [...] 1.9-3.7 A/G Ratio 2.2 1.0-2.5 Egfr Non-Afr. Jamaican 82 ML/MIN/1.73M2 > Or=60 Egfr 95 ML/MIN/1.73M2 > Or=60 Lipid Panel 09/24/2013 [facility] Cholesterol 176 mg/dL 125-[address] [place] [address] [phone] HDL Cholesterol 57 mg/dL > Or=40 Cholesterol/HDL Ratio 3.1 < Or=5.0 LDL Chol,Calculated 96 mg/dL <130 23 Triglycerides 117 mg/dL <150 Non-HDL Cholesterol 119 mg/dL 24 CBC W/ Diff & PLT 09/24/2013 [facility] WBC 5.5 thous/L 3.8-10.[address] [place] [address] [phone] RBC 4.97 mill/L 4.20-5.80 Hemoglobin 15.4 g/dL 13.2-17.1 Hematocrit 45.3 % 38.5-50.0 MCV 91.2 FL 80.0-100.0 MCH 30.9 pg 27.0-33.0 MCHC 33.9 g/dL 32.0-36.0 RDW 12.8 % 11.0-15.0 Platelet Count 223 thous/L 140-400 Neutrophils,Absolute 3110 cells/L 5924-3994 Lymphocytes,Absolute 1740 cells/L 850-3900 Monocytes,Absolute 450 cells/L 200-950 Eosinophils,Absolute 150 cells/L 15-500 Basophils,Absolute 30 cells/L 0-200 Total Neutrophils,% 57 % Not Established Total Lymphocytes,% 32 % Not Established Monocytes,% 8 % Not Established Eosinophils,% 3 % Not Established Basophils,% 0 % Not Established TSH & T4,Free 09/24/2013 [facility] TSH 1.61 mIU/L 0.40-4.50 [address] [facility] [place], [place] [address] [phone] T4,Free 1.1 ng/dL 0.8-1.8 Lipid Panel 06/04/2013 [facility] Cholesterol 178 mg/dL 125-200 [address] [facility] [place] [address] [phone] HDL Cholesterol 68 mg/dL > Or=40 Cholesterol/HDL Ratio 2.6 < Or=5.0 LDL Chol,Calculated 89 mg/dL <130 25 Triglycerides 103 mg/dL <150 Non-HDL Cholesterol 110 mg/dL 26 Hepatic Function 06/04/2013 [facility] Alkaline Phosphatase 46 U/L 40- 115 Panel [address] [facility] [place] [address] [phone] Ast 27 U/L 10-35 Alt 38 U/L 9-46 Bilirubin,Total 0.4 mg/dL 0.2-1.2 Bilirubin,Direct 0.1 mg/dL < Or=0.2 Protein,Total 7.0 g/dL 6.1-8.1 Albumin 4.6 g/dL 3.6-5.1 Globulin,Calculated 2.4 g/dL 1.9-3.7 A/G Ratio 1.9 1.0-2.5 Laboratory test 02/06/2013 [facility] Direct LDL 88 mg/dL <130 [address] [place] [address] [phone] Hepatic Function 02/06/2013 [facility] Alkaline 47 U/L 40-[address] [place] [address] [phone] Ast 32 U/L 10-35 Alt 37 U/L 9-46 Bilirubin,Total 0.6 mg/dL 0.2-1.2 Bilirubin,Direct 0.1 mg/dL < Or=0.2 Protein,Total 6.9 g/dL 6.1-8.1 Albumin 4.5 g/dL 3.6-5.1 Globulin,Calculated 2.4 g/dL 1.9-3.7 A/G Ratio 1.9 1.0-2.5 Basic Metabolic Panel 11/25/2012 [facility] Glucose 94 mg/dL 76-[address] [place] [address] [phone] BUN 16 mg/dL 5-23 Creatinine 0.8 mg/dL 0.5-1.4 Glom Filtration Rate, Estimate >60 mL/min >60 If >60 mL/min >60 28 BUN/Creat 20.0 ratio Sodium 140 mmol/L 136-145 Potassium 4.2 mmol/L 3.5-5.1 Chloride 105 mmol/L 98-107 Carbon Dioxide 27 mEq/L 18-29 Anion Gap 12 mEq/L 8-16 Calcium 8.9 mg/dL 8.5-10.1 CBC 11/25/2012 [facility] White Blood Count 4.9 K/uL 3.4-10.[address] [place] [address] [phone] Red Blood Count 4.79 M/uL 4.20-5.80 Hemoglobin 15.2 gm/dL 12.8-17.0 Hematocrit 44.5 % 38.0-48.0 Mean Cell Volume 92.9 fl 80.0-96.0 Mean Corpuscular HGB 31.7 pg 27.0-33.0 Mean Corpuscular HGB Conc 34.2 g/dL 31.7-36.0 Platelet Count 198 K/uL 150-400 Red Cell Distri Width %CV 11.8 % 11.6-15.8 Mean Platelet Volume 9.8 fL 6.6-10.6 Urine Screen 11/25/2012 [facility] Urine Color YELLOW Yellow [address] [place] [address] [phone] Urine Clarity CLEAR Clear Urine Glucose - Dipstick NEGATIVE mg/dL Negative Urine Bilirubin - Dipstick NEGATIVE Negative Urine Ketone NEGATIVE mg/dL Negative Urine Specific [place] 1.010 1.010-1.030 Urine Blood NEGATIVE Negative Urine PH 6.0 Low 6.5-7.5 Urine Protein - Dipstick NEGATIVE mg/dL Negative Urine Urobilinogen - Dipstick 0.2 E.U./dL 0.2-1.0 Urine Nitrite - Dipstick NEGATIVE Negative Urine Leuk Esterase NEGATIVE Negative Laboratory test 08/13/2012 [facility] Calcium 8.9 mg/dL 8.6-10.[address] [place], [place] [address] [phone] Laboratory test 08/13/2012 [facility] Magnesium 1.8 mg/dL 1.5-2.[address] [place] [address] [phone] TSH 1.33 mIU/L 0.40-4.50 T4,Free 1.1 ng/dL 0.8-1.8 29 PSA,Total 0.3 NG/ML 0.0-4.0 30 Basic Metabolic Panel 08/13/2012 [facility] Sodium 136 mmol/L 135-[address] [place] [address] [phone] Potassium 4.1 mmol/L 3.5-5.3 Chloride 102 mmol/L 98-110 Carbon Dioxide 26 mmol/L 19-30 Calcium 8.9 mg/dL 8.6-10.3 Glucose 118 mg/dL High 65-99 31 Urea Nitrogen 15 mg/dL 7-25 Creatinine 0.87 mg/dL 0.70-1.33 32 BUN/Creatinine Ratio 16.9 6-22 Egfr Non-Afr. Jamaican 96 ML/MIN/1.73M2 > Or=60 Egfr 112 ML/MIN/1.73M2 > Or=60 Hepatic Function 08/13/2012 [facility] Alkaline Phosphatase 49 U/L 40- [address] [place], [place] [address] [phone] Ast 38 U/L High 10-35 Alt 44 U/L 9-60 Bilirubin,Total 0.5 mg/dL 0.2-1.2 Bilirubin,Direct 0.1 mg/dL < Or=0.2 Protein,Total 6.6 g/dL 6.1-8.1 Albumin 4.4 g/dL 3.6-5.1 Globulin,Calculated 2.2 g/dL 1.9-3.7 A/G Ratio 2.0 1.0-2.5 Laboratory test 08/13/2012 [facility] Phosphorus 3.1 mg/dL 2.5-4.[address] [place] [address] [phone] Lipid Panel 08/13/2012 [facility] Cholesterol 185 mg/dL 125-[address] [place], [place] [address] [phone] HDL Cholesterol 71 mg/dL > Or=40 Cholesterol/HDL Ratio 2.6 < Or=5.0 LDL Chol,Calculated 87 mg/dL <130 33 Triglycerides 133 mg/dL <150 Non-HDL Cholesterol 114 mg/dL 34 Lipid Panel 06/09/2012 [facility] Cholesterol 215 mg/dL High 125-[address] [place] [address] [phone] HDL Cholesterol 67 mg/dL > Or=40 Cholesterol/HDL Ratio 3.2 < Or=5.0 LDL Chol,Calculated 121 mg/dL <130 35 Triglycerides 136 mg/dL <150 Non-HDL Cholesterol 148 mg/dL 36 Vitamin D, 25 08/27/2011 [facility] Vitamin 10 ng/mL Low 30-[address] D,25-Oh,[place] [address] [phone] Vitamin D,25-Oh,D3 10 ng/mL Vitamin D,25-Oh,D2 <4 ng/mL 37 TSH & T4,Free 08/27/2011 [facility] TSH 1.29 mIU/L 0.40-4.[address] [place], [place] [address] [phone] T4,Free 1.2 ng/dL 0.8-1.8 Laboratory test 08/27/2011 [facility] PSA,Total 0.3 NG/ML 0.0-4.0 [address] [place] [address] [phone] Testosterone,Total,Males 320 ng/dL 241-827 39 Comp Metabolic Panel 08/27/2011 [facility] Sodium 140 mmol/L 135-[address] [place] [address] [phone] Potassium 3.9 mmol/L 3.5-5.3 Chloride 103 mmol/L [...] 2.1-3.7 A/G Ratio 2.0 1.0-2.1 Egfr Non-Afr. Jamaican 96 ML/MIN/1.73M2 > Or=60 Egfr 111 ML/MIN/1.73M2 > Or=60 CBC W/ Diff & PLT 08/27/2011 [facility] WBC 4.5 thous/L 3.8-10.[address] [place] [address] [phone] RBC 4.74 mill/L 4.20-5.80 Hemoglobin 15.1 g/dL 13.2-17.1 Hematocrit 44.9 % 38.5-50.0 MCV 94.9 FL 80.0-100.0 MCH 31.8 pg 27.0-33.0 MCHC 33.5 g/dL 32.0-36.0 RDW 12.7 % 11.0-15.0 Platelet Count 216 thous/L 140-400 Neutrophils,Absolute 2560 cells/L 2637-2270 Lymphocytes,Absolute 1430 cells/L 850-3900 Monocytes,Absolute 380 cells/L 200-950 Eosinophils,Absolute 110 cells/L 15-500 Basophils,Absolute 30 cells/L 0-200 Total Neutrophils,% 57 % 38-80 Total Lymphocytes,% 32 % 15-49 Monocytes,% 8 % 0-13 Eosinophils,% 2 % 0-8 Basophils,% 1 % 0-2 Hepatic Function 08/27/2011 [facility] Alkaline Phosphatase 57 U/L 40- [address] [place] [address] [phone] Ast 33 U/L 10-35 Alt 39 U/L 9-60 Bilirubin,Total 0.4 mg/dL 0.2-1.2 Bilirubin,Direct 0.1 mg/dL < Or=0.2 Protein,Total 7.3 g/dL 6.2-8.3 Albumin 4.9 g/dL 3.6-5.1 Globulin,Calculated 2.4 g/dL 2.1-3.7 A/G Ratio 2.0 1.0-2.1 Laboratory 08/27/2011 [facility] LDL Cholesterol,Direct 101 <130 42 test finding [address] mg/dL [place], [place] [address] [phone] Throat-Beta 07/20/2011 Trunity M -------- [address] -------- [place] [address] <SEE [phone] NOTE> Laboratory 05/01/2011 [facility] LDL Cholesterol,Direct 83 mg/dL <130 44 test finding [address] [place], [place] [address] [phone] Hepatic 05/01/2011 [facility] Alkaline Phosphatase 48 U/L 40-115 Function Panel [address] [place], [place] [address] [phone] Ast 28 U/L 10-35 Alt 45 U/L 9-60 Bilirubin,Total 0.7 mg/dL 0.2-1.2 Bilirubin,Direct 0.1 mg/dL < Or=0.2 Protein,Total 6.8 g/dL 6.2-8.3 Albumin 4.5 g/dL 3.6-5.1 Globulin,Calculated 2.3 g/dL 2.1-3.7 A/G Ratio 2.0 1.0-2.1 Laboratory 10/17/2010 [facility] LDL Cholesterol,Direct 69 mg/dL <130 45 test finding [address] [place], [place] [address] [phone] Hepatic 10/17/2010 [facility] Alkaline Phosphatase 43 U/L 40-115 Function Panel [address] [place], [place] [address] [phone] Ast 27 U/L 10-35 Alt 27 U/L 9-60 Bilirubin,Total 0.5 mg/dL 0.2-1.2 Bilirubin,Direct 0.1 mg/dL < Or=0.2 Protein,Total 6.6 g/dL 6.2-8.3 Albumin 4.4 g/dL 3.6-5.1 Globulin,Calculated 2.2 g/dL 2.1-3.7 A/G Ratio 2.0 1.0-2.1 Lipid Panel 07/20/2010 [facility] Cholesterol 200 mg/dL 125-200 [address] [facility] [place] [address] [phone] HDL Cholesterol 55 mg/dL > Or=40 Triglycerides 305 mg/dL High <150 Cholesterol/HDL Ratio 3.6 < Or=5.0 LDL Chol,Calculated 84 mg/dL <130 46 Hepatic Function 07/20/2010 [facility] Alkaline Phosphatase 54 U/L 40- 115 Panel [address] [facility] [place] [address] [phone] Ast 28 U/L 10-35 Alt 40 U/L 9-60 Bilirubin,Total 0.4 mg/dL 0.2-1.2 Bilirubin,Direct 0.1 mg/dL < Or=0.2 Protein,Total 7.3 g/dL 6.2-8.3 Albumin 4.7 g/dL 3.6-5.1 Globulin,Calculated 2.6 g/dL 2.1-3.7 A/G Ratio 1.8 1.0-2.1 Hepatic Function 05/29/2010 [facility] Alkaline Phosphatase 55 U/L 40- 115 Panel [address] [facility] [place], [place] [address] [phone] Ast 37 U/L High 10-35 Alt 48 U/L 9-60 Bilirubin,Total 0.6 mg/dL 0.2-1.2 Bilirubin,Direct 0.1 mg/dL < Or=0.2 Protein,Total 7.3 g/dL 6.2-8.3 Albumin 4.8 g/dL 3.6-5.1 Globulin,Calculated 2.5 g/dL 2.1-3.7 A/G Ratio 1.9 1.0-2.1 Lipid Panel 05/29/2010 [facility] Cholesterol 240 mg/dL High 125-[address] [place] [address] [phone] HDL Cholesterol 67 mg/dL > Or=40 Triglycerides 153 mg/dL High <150 Cholesterol/HDL Ratio 3.6 < Or=5.0 LDL Chol,Calculated 142 mg/dL High <130 47 Lipid Panel 12/23/2009 [facility] Cholesterol 194 mg/dL 125-200 [address] [facility] [place] [address] [phone] HDL Cholesterol 56 mg/dL > Or=40 Triglycerides 201 mg/dL High <150 Cholesterol/HDL Ratio 3.5 < Or=5.0 LDL Chol,Calculated 98 mg/dL <130 48 Hepatic Function 12/23/2009 [facility] Alkaline Phosphatase 54 U/L 40- 115 Panel [address] [facility] [place] [address] [phone] Ast 28 U/L 10-35 Alt 30 U/L 9-60 Bilirubin,Total 0.5 mg/dL 0.2-1.2 Bilirubin,Direct 0.1 mg/dL < Or=0.2 Protein,Total 6.9 g/dL 6.2-8.3 Albumin 4.5 g/dL 3.6-5.1 Globulin,Calculated 2.4 g/dL 2.1-3.7 A/G Ratio 2.0 1.0-2.1 Hepatic Function 08/09/2009 [facility] Alkaline Phosphatase 50 U/L 40- 115 Panel [address] [facility] [place] [address] [phone] Ast 31 U/L 10-35 Alt 31 U/L 9-60 Bilirubin,Total 0.6 mg/dL 0.2-1.2 Bilirubin,Direct 0.1 mg/dL < Or=0.2 Protein,Total 6.7 g/dL 6.2-8.3 Albumin 4.6 g/dL 3.6-5.1 Globulin,Calculated 2.1 g/dL 2.1-3.7 A/G Ratio 2.2 High 1.0-2.1 TSH & T4,Free 08/09/2009 [facility] TSH,3RD 1.80 mIU/L 0.40-4.[address] [place] [address] [phone] T4,Free 1.0 ng/dL 0.8-1.8 Comp Metabolic Panel 08/09/2009 [facility] Sodium 138 mmol/L 135-[address] [place] [address] [phone] Potassium 4.3 mmol/L 3.5-5.3 Chloride 104 mmol/L [...] A/G Ratio 2.2 High 1.0-2.1 Egfr Non-Afr. Jamaican >60 ML/MIN/1.73M2 > Or=60 Egfr >60 ML/MIN/1.73M2 > Or=60 Laboratory test 08/09/2009 [facility] PSA,Total 0.3 NG/ML 0.0-4.0 [address] [place] [address] [phone] Lipid Panel 08/09/2009 [facility] Cholesterol 176 mg/dL 125-[address] [place], [place] [address] [phone] HDL Cholesterol 69 mg/dL > Or=40 Triglycerides 99 mg/dL <150 Cholesterol/HDL Ratio 2.6 < Or=5.0 LDL Chol,Calculated 87 mg/dL <130 51 Lipid Panel 02/07/2009 [facility] Cholesterol 166 mg/dL 125-[address] [place] [address] [phone] HDL Cholesterol 62 mg/dL > Or=40 Triglycerides 105 mg/dL <150 Cholesterol/HDL Ratio 2.7 < Or=5.0 LDL Chol,Calculated 83 mg/dL <130 52 Hepatic Function 02/07/2009 [facility] Alkaline Phosphatase 50 U/L 40- [address] [place] [address] [phone] Ast 26 U/L 10-35 Alt 33 U/L 9-60 Bilirubin,Total 0.5 mg/dL 0.2-1.2 Bilirubin,Direct 0.1 mg/dL < Or=0.2 Protein,Total 6.9 g/dL 6.2-8.3 Albumin 4.4 g/dL 3.6-5.1 Globulin,Calculated 2.5 g/dL 2.1-3.7 A/G Ratio 1.8 1.0-2.1 Lipid Panel 10/11/2008 [facility] Cholesterol 165 mg/dL 125-[address] [place] [address] [phone] HDL Cholesterol 59 mg/dL > Or=40 Triglycerides 121 mg/dL <150 Cholesterol/HDL Ratio 2.8 < Or=5.0 LDL Chol,Calculated 82 mg/dL <130 53 Hepatic Function 10/11/2008 [facility] Alkaline Phosphatase 42 U/L 40- [address] [place] [address] [phone] Ast 22 U/L 10-35 Alt 31 U/L 9-60 Bilirubin,Total 0.5 mg/dL 0.2-1.2 Bilirubin,Direct 0.1 mg/dL < Or=0.2 Protein,Total 6.8 g/dL 6.2-8.3 Albumin 4.5 g/dL 3.6-5.1 Globulin,Calculated 2.3 g/dL 2.1-3.7 A/G Ratio 2.0 1.0-2.1 Laboratory test 07/09/2008 [facility] PSA,Total 0.4 NG/ML 0.0-4.[address] [place], [place] [id number] [phone] Lipid Panel 07/09/2008 [facility] Cholesterol 174 mg/dL 125-[address] [place] [address] [phone] HDL Cholesterol 65 mg/dL > Or=40 Cholesterol/HDL Ratio 2.7 < Or=5.0 LDL Chol,Calculated 83 mg/dL <130 54 Triglycerides 132 mg/dL <150 TSH & T4,Free 07/09/2008 [facility] TSH,3RD 1.93 mU/L 0.40-4.[address] [place] [address] [phone] T4,Free 1.1 ng/dL 0.8-1.8 Comp Metabolic Panel 07/09/2008 [facility] Sodium 142 mmol/L 135-[address] [place] [address] [phone] Potassium 4.3 mmol/L 3.5-5.3 Chloride 103 mmol/L [...] 2.1-3.7 A/G Ratio 1.7 1.0-2.1 Egfr Non-Afr. Jamaican >60 ML/MIN/1.73M2 > Or=60 Egfr >60 ML/MIN/1.73M2 > Or=60 CBC W/ Diff & PLT 07/09/2008 [facility] WBC 5.8 thous/L 3.8-10.[address] [place] [address] [phone] RBC 4.76 mill/L 4.20-5.80 Hemoglobin 15.2 g/dL 13.2-17.1 Hematocrit 44.0 % 38.5-50.0 MCV 92.4 FL 80.0-100.0 MCH 32.0 pg 27.0-33.0 MCHC 34.7 g/dL 32.0-36.0 RDW 11.9 % 11.0-15.0 Platelet Count 234 thous/L 140-400 Platelet Sufficiency NORMAL Normal Neutrophils,Absolute 3560 cells/L [phone] Bands,Absolute DNR cells/L 0-750 Metamyelocytes,Absolute DNR cells/L [...] [facility] Cholesterol 169 mg/dL 125-200 [address] [facility] [place] [address] [phone] HDL Cholesterol 59 mg/dL > Or=40 Triglycerides 120 mg/dL <150 Cholesterol/HDL Ratio 2.9 < Or=5.0 LDL Chol,Calculated 86 mg/dL <130 56 Hepatic Function 04/19/2008 [facility] Alkaline Phosphatase 50 U/L 40- 115 Panel [address] [facility] [place] [address] [phone] Ast 32 U/L 10-35 Alt 42 U/L 9-60 Bilirubin,Total 0.8 mg/dL 0.2-1.2 Bilirubin,Direct 0.2 mg/dL < Or=0.2 Protein,Total 7.5 g/dL 6.2-8.3 Albumin 4.7 g/dL 3.6-5.1 Globulin,Calculated 2.8 g/dL 2.1-3.7 A/G Ratio 1.7 1.0-2.1 CBC W/ Diff & PLT 06/27/2007 [facility] WBC 4.9 thous/L 3.8-10.[address] [place] [address] [phone] RBC 4.82 mill/L 4.20-5.80 Hemoglobin 15.4 g/dL 13.2-17.1 Hematocrit 45.0 % 38.5-50.0 MCV 93.3 FL 80.0-100.0 MCH 32.0 pg 27.0-33.0 MCHC 34.3 g/dL 32.0-36.0 RDW 12.1 % 11.0-15.0 Platelet Count 212 thous/L 140-400 Platelet Sufficiency NORMAL Normal Neutrophils,Absolute 2890 cells/L 8081-2070 Bands,Absolute DNR cells/L 0-750 Metamyelocytes,Absolute DNR cells/L [...] Phosphatase 48 U/L 40- [address] [place] [address] [phone] Ast 27 U/L 10-35 Alt 40 U/L 9-60 Bilirubin,Total 0.8 mg/dL 0.2-1.2 Bilirubin,Direct 0.1 mg/dL < Or=0.2 Protein,Total 6.9 g/dL 6.2-8.3 Albumin 4.3 g/dL 3.6-5.1 TSH & T4,Free 06/27/2007 [facility] TSH,3RD 1.86 mU/L 0.40-4.[address] [place] [address] [phone] T4,Free 1.2 ng/dL 0.8-1.8 Comp Metabolic Panel 06/27/2007 [facility] Sodium 138 mmol/L 135-[address] [place] [address] [phone] Potassium 4.3 mmol/L 3.5-5.3 Chloride 101 mmol/L [...] 2.1-3.7 A/G Ratio 1.7 1.0-2.1 Egfr Non-Afr. Jamaican >60 ML/MIN/1.7 > Or=60 Egfr >60 ML/MIN/1.7 > Or=60 Lipid Panel 06/27/2007 [facility] Cholesterol 173 mg/dL 125-[address] [place] [address] [phone] HDL Cholesterol 65 mg/dL > Or=40 58 Cholesterol/HDL Ratio 2.7 < Or=5.0 LDL Chol,Calculated 92 mg/dL <130 59 Triglycerides 80 mg/dL <150 Laboratory test 06/27/2007 [facility] PSA,Total 0.4 NG/ML 0.0-4.0 [address] [place] [address] [phone] Lipid Panel 02/10/2007 [facility] Cholesterol 186 mg/dL 125-[address] [place] [address] [phone] HDL Cholesterol 54 mg/dL > Or=40 61 Cholesterol/HDL Ratio 3.4 < Or=5.0 LDL Chol,Calculated 100 mg/dL <130 62 Triglycerides 159 mg/dL High <150 Hepatic Function 02/10/2007 [facility] Alkaline Phosphatase 44 U/L 40- [address] [place] [address] [phone] Ast 26 U/L 10-35 Alt 35 U/L 9-60 Bilirubin,Total 0.8 mg/dL 0.2-1.2 Bilirubin,Direct 0.1 mg/dL < Or=0.2 Protein,Total 6.9 g/dL 6.2-8.3 Albumin 4.1 g/dL 3.6-5.1 Laboratory test 10/25/2006 [facility] Rapid Urease NEGATIVE finding [address] [place] [address] [phone] CBC W/ Diff & PLT 08/19/2006 [facility] WBC 4.8 thous/L 3.8-[address] [place] [address] [phone] RBC 4.77 mill/L 4.20-5.80 Hemoglobin 15.2 g/dL 13.2-17.1 Hematocrit 43.6 % 38.5-50.0 MCV 91.5 FL 80.0-100.0 MCH 31.9 pg 27.0-33.0 MCHC 34.9 g/dL 32.0-36.0 RDW 11.9 % 11.0-15.0 Platelet Count 218 thous/L 140-400 Platelet Sufficiency NORMAL Normal Neutrophils,Absolute 2790 cells/L 4784-0872 Bands,Absolute DNR cells/L 0-750 Metamyelocytes,Absolute DNR cells/L [...] [facility] Sodium 138 mmol/L 135-146 [address] [place], [place] [id number] [phone] Potassium 4.1 mmol/L 3.5-5.3 Chloride 102 mmol/L [...] PSA,Total 0.4 NG/ML 0.0-4.0 [address] [place] [address] [phone] Lipid Panel 08/19/2006 [facility] Cholesterol 170 mg/dL <[address] [place] [address] [phone] HDL Cholesterol 62 mg/dL >40 66 Cholesterol/HDL Ratio 2.7 <5.0 LDL Chol,Calculated 88 mg/dL <130 67 Triglycerides 99 mg/dL <150 Hepatic Function 08/19/2006 [facility] Alkaline Phosphatase 51 U/L 20- [address] [place] [address] [phone] Ast 25 U/L 3-50 Alt 34 U/L 3-60 Bilirubin,Total 0.8 mg/dL 0.2-1.5 Bilirubin,Direct 0.1 mg/dL 0.0-0.3 Protein,Total 7.1 g/dL 6.0-8.3 Albumin 4.6 g/dL 3.5-4.9 Lipid Panel 08/27/2005 [facility] Cholesterol 147 mg/dL <[address] [place] [address] [phone] HDL Cholesterol 54 mg/dL >40 68 Triglycerides 99 mg/dL <150 Cholesterol/HDL Ratio 2.7 <5.0 LDL Chol,Calculated 73 mg/dL <130 69 Hepatic Function 08/27/2005 [facility] Alkaline Phosphatase 44 U/L 20- [address] [place] [address] [phone] Ast 25 U/L 3-50 Alt 31 U/L 3-60 Bilirubin,Total 0.7 mg/dL 0.2-1.5 Bilirubin,Direct 0.1 mg/dL 0.0-0.3 Protein,Total 7.3 g/dL 6.0-8.3 Albumin 4.4 g/dL 3.5-4.9 1 FASTING 2 LDL-C is now calculated using the Nagi-Bhavana calculation, which is a validated novel method providing better accuracy than the Friedewald equation in the estimation of LDL-C. Nagi AGUDELO et al.TYSON.2013;310(19):8966-6395 Desirable range <100 mg/dL for primary prevention; <70 mg/dL for patients with CHD or diabetic patients with >or=2 CHD risk factors. For additional information, please refer to http://[employer]/faq/MRK613(This link is being provided for informational/educational purposes [...] the estimation of LDL-C. Nagi SS et al.TYSON.2013;310(19):1478-8300 Desirable range <100 mg/dL for primary prevention; <70 mg/dL for patients with CHD or diabetic patients with >or=2 CHD risk factors. For additional information, please refer to http://[employer]/faq/RPD951(This link is being provided for informational/educational purposes [...] Vit D, (D2,D3),LC/MS/MS is recommended: Order code 86750 (patients >2 yrs). 7 GLUCOSE REFERENCE RANGE BASED ON FASTING SPECIMEN. 8 The upper reference limit for Creatinine is approximately 13% higher for people identified as -Jamaican. 9 LDL-CHOLESTEROL RISK CATEGORY* GOAL VERY HIGH (E.G. DIABETES + CVD) <70 MG/DL HIGH (DIABETICS; CHD RISK EQUIVALENTS) <100 MG/DL MODERATELY HIGH (MULTIPLE(2+) RISK FACTORS) <130 MG/DL 0 TO 1 RISK FACTORS <160 MG/DL * NCEP REPORT. CIRCULATION 2004; 110: 227-239 10 Target for non-HDL cholesterol is 30 mg/dL higher than LDL cholesterol target. 11 For more information on this test, go to http://[employer]/faq/ TotalTestosteroneLCMSMS 12 THIS TEST WAS PERFORMED USING [...] more information on this test, go to http://education.[employer]/faq/ TotalTestosteroneLCMSMS 21 GLUCOSE REFERENCE RANGE BASED ON FASTING SPECIMEN. 22 The upper reference limit for Creatinine is approximately 13% higher for people identified as -Jamaican. 23 LDL-CHOLESTEROL RISK CATEGORY* GOAL VERY HIGH [...] OF FREE T4 REAGENT AVAILABLE FROM THE SALES AND MARKETING MANAGER [employer]ODUCES RESULTS THAT ARE APPROXIMATELY 9% HIGHER [...] approximately 13% higher for people identified as -Jamaican. 33 LDL-CHOLESTEROL RISK CATEGORY* GOAL VERY HIGH [...] IS THE RECOMMENDED ASSAY. THIS TEST CODE (49675G) MUST BE COLLECTED IN A RED-TOP TUBE WITH NO GEL. THE ENDOCRINE SOCIETY RECOMMENDS OBTAINING AT LEAST TWO MORNING (8-10 A.M.) SAMPLES ON DIFFERENT DAYS WHEN SCREENING FOR HYPOGONADISM. 40 GLUCOSE REFERENCE RANGE BASED ON FASTING SPECIMEN. 41 The upper reference limit for Creatinine is approximately 13% higher for people identified as -Jamaican. 42 LDL-CHOLESTEROL RISK CATEGORY* GOAL VERY HIGH (E.G. DIABETES + CVD) <70 MG/DL HIGH (DIABETICS; CHD RISK EQUIVALENTS) <100 MG/DL MODERATELY HIGH (MULTIPLE(2+) RISK FACTORS) <130 MG/DL 0 TO 1 RISK FACTORS <160 MG/DL * NCEP REPORT. CIRCULATION 2004; 110: 227-239 43 RUN DATE: 07/22/11 [facility] NMI LIVE PAGE 1 RUN TIME: 832 Specimen Inquiry RUN USER: INTERFACE Name: MEHDI HARMON Status: BRANT JO Re07/20/11 Age/Sex: 55/M Unit#: [id number] Location: : 55 SPEC #: [id number] JETT: 07/20/11-1609 STATUS: TANIKA RERadha #: [id number] RECD: 07/20/[address]: Dmitry AGRAWAL,Radha Doyle SOURCE: THROAT ENTR: 07/20/[address]: Sydnee AGRAWAL,Mauri Kerr [facility]: ORDERED: THROAT-BETA STR ACT WKST: BS 07/22/11 #1 Procedure Result Verified Site > THROAT-BETA STREP CULTURE Final 07/22/11- 08 ML NEGATIVE FOR GROUP A BETA STREPTOCOCCUS ML - [facility] State Permit #[id number] [address] [place] [address] DEPARTMENT OF PATHOLOGY, [address] [place] [address] [facility] Permit #[id number] Umesh Marx M.D. Director Paul Perera M.D. Electrician Manager 44 LDL-CHOLESTEROL RISK CATEGORY* GOAL VERY HIGH [...] INTERCHANGEABLY. THIS ASSAY WAS PERFORMED USING THE [employer] CHEMILUMINESCENCE METHOD. SERUM PSA LEVELS SHOULD NOT [...] FOR RACE, IF THE PATIENT RACE IS -SLOV[place], THE GFR ESTIMATE MUST BE MULTIPLIED BY [...] 227-239 Procedures Date Code Description Status 03/21/2015 56571 Spirometry Graphic Record/Max Voluntary Vent Completed 03/21/2015 00715 PVR-Atrerial Study Completed 03/21/2015 65127 Holter Monitor Office Completed 03/17/2015 [id number] Bone Mineral Density Test Completed 03/17/2015 81243 Bone Density Completed 03/15/2015 25184 Non-Invcorrotid/Comp /Bilat Study Completed 03/15/2015 58585 Echocardiography Completed 09/24/2013 97375 Bone Density Completed 09/24/2013 63702 EKG-Tracing & Report Completed 09/24/2013 33757 Spirometry Graphic Record/Max Voluntary Vent Completed 09/24/2013 73552 Holter Monitor Office Completed 09/24/2013 59225 PVR-Atrerial Study Completed 09/17/2013 49597 Non-Invcorrotid/Comp /Bilat Study Completed 09/17/2013 39968 Echocardiography Completed 10/09/2012 00230 Non-Invcorrotid/Comp /Bilat Study Completed 10/09/2012 98760 Echocardiography Completed 09/30/2012 29939 Spirometry Graphic Record/Max Voluntary Vent Completed 09/30/2012 10047 Holter Monitor Office Completed 08/27/2011 76293 PVR-Atrerial Study Completed 08/27/2011 27531 Holter Monitor Office Completed 08/27/2011 40394 Spirometry Graphic Record/Max Voluntary Vent Completed 08/23/2011 30446 Bone Density Completed 08/22/2011 21648 Echocardiography Completed 08/22/2011 12864 Non-Invcorrotid/Comp /Bilat Study Completed 10/10/2010 8 Records Completed 12/23/2009 49210 PFT Evaluation Completed 08/09/2009 71492 Non-Invcorrotid/Comp /Bilat Study Completed 08/09/2009 91991 Echocardiography Completed 08/09/2009 38312 Holter Monitor Office Completed 08/09/2009 06656 EKG-Tracing & Report Completed 08/10/2008 61518 Holter Monitor Office Completed 07/09/2008 77993 Non-Invcorrotid/Comp /Bilat Study Completed 07/09/2008 44696 Doppler Color Flow Velocity Completed 07/09/2008 67195 Doppler/ECHO Completed 07/09/2008 36837 ECHO-2D W/Wo M-Mode Completed 07/09/2008 73853 EKG-Tracing & Report Completed 05/11/2008 78280 Injections Thera,Prop,Paula, B12 Completed 06/27/2007 48783 Spirometry Graphic Record/Max Voluntary Vent Completed 06/27/2007 32686 Non-Invcorrotid/Comp /Bilat Study Completed 06/27/2007 69813 Doppler Color Flow Velocity Completed 06/27/2007 29637 Doppler/ECHO Completed 06/27/2007 09147 ECHO-2D W/Wo M-Mode Completed 06/27/2007 10241 Holter Monitor Office Completed 10/25/2006 47505266 Colonoscopy Completed 04/23/2006 89188 Holter Monitor Office Completed 04/23/2006 03590 EKG-Tracing & Report Completed 04/22/2006 34630 Doppler/ECHO Completed 04/22/2006 00457 ECHO-2D W/Wo M-Mode Completed 04/22/2006 67283 Non-Invcorrotid/Comp /Bilat Study Completed 04/22/2006 66882 Doppler Color Flow Velocity Completed 02/19/2005 38841 Holter Monitor Office Completed 10/10/2004 49367 Spirometry Graphic Record/Max Voluntary Vent Completed 10/10/2004 22221 EKG-Tracing & Report Completed 10/02/2004 68931 Doppler Color Flow Velocity Completed 10/02/2004 52514 Doppler/ECHO Completed 10/02/2004 84224 ECHO-2D W/Wo M-Mode Completed 03/21/2004 75621 Spirometry Graphic Record/Max Voluntary Vent Completed Encounters [...] Office Visit 05/17/2016 11:30a Main Office Grace Radnhawa G47.00 Insomnia, M.D. unspecified E78.5 Hyperlipidemia, unspecified J45.30 Mild persistent asthma, uncomplicated Office Visit 10/26/2015 8:45p Main Office Herminio Alvarez MD G47.00 Insomnia, unspecified Office Visit 10/20/2015 2:00p Main Office Grace Randhawa E78.5 Hyperlipidemia, M.D. unspecified K21.9 Gastro-esophageal reflux disease without esophagitis I11.9 Hypertensive heart disease without heart failure Office Visit 05/18/2015 11:10a Main Office Mauri Randhawa E78.5 MD Jean unspecified K21.9 Gastro-esophageal reflux disease [...] Main Office Mauri Randhawa, 311 Depressive Disorder Not Elsewhere Spec Office Visit 08/04/2014 10:50a [...] 3:00p Main Office Mauri Randhawa, 110.3 Dermatophytosis Groin MD & Perianal Area Office Visit 02/10/2013 10:00a Main Office Mauri Randhawa 424.0 Mitral Valve Disorder MD 433.10 Occlusion [...] Mauri Randhawa, 466.00 Acute Bronchitis Office Visit 12/23/2003 11:20a Main Office Mauri Randhawa, 272.40 Hyperlipidemia 493.92 Asthma Unspec W/ Acute Exacerbation Plan of Treatment Future Appointment(s):05/20/2018 3:10 pm - Mauri Randhawa MD at Main Couxff7405/2018 - Mauri Randhawa MDG47.00 Insomnia, unspecifiedComments:Discussed sleep [...] guidelines and materials provided.J45.30 Mild persistent asthma, [id number] Gastro-esophageal reflux disease without esophagitisComments: Discussed role [...] fats and exercise plays on evolution of nikolski disease and importance of controlling cholesterol. Medications role and side effects in disease progression prevention discussed and need for compliance with prescribed treatment. Follow up testing for progression such as ultrasound surveillance reviewedAllImmunizations/Injections: Pneumovax Polyvalent Inj Im
--- OUTSIDE RECORDS SUMMARY | 2018-04-21 09:48 | XMS REPORT | Continuity of Care Document ---
:1955 External Reference #:[id number] Author Name DeaAletha Care Team Providers Name Role Phone Mauri Randhawa MD Primary Care Physician Unavailable Payers Type Date Identification Numbers Payment Provider Subscriber Policy Number: [id number] Gorgetclaudia Mehdi [employer]on Group Number: [id number] [address] PayID: [id number] [place] [address] Advance Directives Description No Information Available Problems Date Description Provider Status Onset: 05/16/2011 Hyperlipidemia Mauri Randhawa MD Active Onset: 05/16/2011 Disorders of initiating and maintaining Mauri Randhawa MD Active sleep Onset: 05/16/2011 Impotence of organic origin Marui Randhawa MD Active Onset: 05/16/2011 Mitral valve [...] MD Active Onset: 05/16/2011 Multiple joint pain aMuri Randhawa MD Active Onset: 05/16/2011 Exacerbation of asthma Mauri Randhawa MD Active Onset: 05/16/2011 Neuralgia Neuritis & Radiculitis Active Unspecified Onset: 05/16/2011 Pure hypercholesterolemia Active Onset: 05/16/2011 Breathing painful Active Onset: 05/17/2016 Mild persistent asthma Grace Randhawa M.D. Active Family History Date Family Member(s) Problem(s) Comments General Father ND in his 40's , mother pvd Father ND Father due to Heart Disease () Mother [...] Q e) s 4HR prn lexie Randhawa/Act M.DJohn [...] 1 po qd F32.9 s Eran Randhawa M.Bradley 05/17 Fiber Complete 12/30 Hx Tablets 100ta [...] 6 hr Mauri FJohn etaminophen s prn painySdnee MD - 10/22 Tramadol HCL 06/11 Hx [...] 1 Q 4HR prn Mauri FJohn Sulfate 0.5% dwight Randhawa MD - 07/13 Advair [...] With Codeine tablespoon po MD Sydnee - [facility] prn cough 08/22 Diflucan 06/21 Hx Tablets [...] With Codeine tablespoon po MD Sydnee - [facility] prn cough 04/16 Albuterol 09/06 Hx Aerosol 90mcg/Dos 6unit 2 puff qid Muari F. Inhalation /2005 e tio Randhawa MD [...] CPT Code Status Date Vaccine Lot # [id number] Given 05/17/2016 Influenza Vaccine (Fluvirin) 3 Years Of Age [place] [id number] Older [id number] Given 04/19/2015 Influenza Virus (Afluria) Split Virus 3 Years [id number] Of Age And Older Q2037 Given 05/11/2014 Influenza Vaccine (Fluvirin) 3 Years Of Age Or Older [id number] Given 06/09/2013 Influenza Vaccine (Fluvirin) 3 Years Of Age Or Older [id number] Given 08/07/2012 Influenza Vaccine (Fluvirin) 3 Years Of Age Or Older [id number] Given 05/16/2011 Flulaval [id number] Given 06/13/2010 Influenza Vaccine 93409 Given 08/22/2009 Tetanus Shot [id number] Given 04/20/2009 Influenza Vaccine [id number] 82150 Given 05/11/2008 Influenza Vaccine [id number] Given 08/08/2004 Influenza Vaccine 66754 Given 07/29/2004 Influenza Vaccine 49694 Given 09/26/1998 DT Immunization DIP/Tet (History Only) [...] Lab Cholesterol 163 mg/dL <[address] [place], [place] [id number] [phone] HDL Cholesterol 68 mg/dL >40 Cholesterol/HDL Ratio 2.4 CALC <5.0 LDL Chol,Calculated 81 mg/dL 0-100 2 Triglycerides 59 mg/dL <150 Non-HDL Cholesterol 95 mg/dL <130 3 Lipid Panel 02/07/2018 [facility] Cholesterol 149 mg/dL <199 [address] [place], [place] [id number] [phone] HDL Cholesterol 66 mg/dL >40 Cholesterol/HDL Ratio 2.3 CALC <5.0 LDL Chol,Calculated 67 mg/dL 0-100 4 Triglycerides 75 mg/dL <150 Non-HDL Cholesterol 83 mg/dL <130 5 Hepatic Function 05/13/2015 [facility] Alkaline Phosphatase 50 U/L 40- [address] [place] [address] [phone] Ast 32 U/L 10-35 Alt 52 U/L High 9-46 Bilirubin,Total 0.7 mg/dL 0.2-1.2 Bilirubin,Direct 0.1 mg/dL < Or=0.2 Protein,Total 7.1 g/dL 6.1-8.1 Albumin 4.7 g/dL 3.6-5.1 Globulin,Calculated 2.4 g/dL 1.9-3.7 A/G Ratio 1.9 1.0-2.5 Laboratory 05/13/2015 [facility] Vitamin 31 30-100 6 test finding [address] D,25-Hydroxy,Total,Immunoassay NG/[place] [address] [phone] CMP W/O Egfr 03/21/2015 [facility] Sodium 136 135-[address] mmol/[place] [address] [phone] Potassium 3.7 mmol/L 3.5-5.3 Chloride 100 mmol/L [...] Lab Cholesterol 217 mg/dL High 125-[address] [place] [address] [phone] HDL Cholesterol 55 mg/dL > Or=40 Cholesterol/HDL Ratio 3.9 < Or=5.0 LDL Chol,Calculated 113 mg/dL <130 9 Triglycerides 247 mg/dL High <150 Non-HDL Cholesterol 162 mg/dL High 10 TSH & T4,Free 03/21/2015 [facility] TSH 2.00 mIU/L 0.40-4.50 [address] [facility] [place] [address] [phone] T4,Free 1.1 ng/dL 0.8-1.8 CBC W/ Diff & PLT 03/21/2015 [facility] WBC 4.9 thous/L 3.8-10.8 [address] [facility] [place] [address] [phone] RBC 4.84 mill/L 4.20-5.80 Hemoglobin 15.4 g/dL 13.2-17.1 Hematocrit 45.4 % 38.5-50.0 MCV 93.7 FL 80.0-100.0 MCH 31.9 pg 27.0-33.0 MCHC 34.0 g/dL 32.0-36.0 RDW 12.5 % 11.0-15.0 Platelet Count 194 thous/L 140-400 Platelet Sufficiency PENDING MPV 8.0 FL 7.5-11.5 Neutrophils,Absolute 3040 cells/L 9745-7557 Bands,Absolute PENDING Metamyelocytes,Absolute PENDING Myelocytes,Absolute PENDING Promyelocytes,Absolute [...] [facility] Amylase,Serum 62 U/L 21-101 [address] [facility] [place], [place] [id number] [phone] Lipase,Serum 36 U/L 7-60 Laboratory 03/21/2015 [facility] Testosterone,Total,LC/MS/MS 341 250- 1100 11 test finding [address] ng/[place] [address] [phone] PSA,Total 0.3 NG/ML 0.0-4.0 12 Lipid Panel 11/05/2014 [facility] Cholesterol 197 mg/dL 125-[address] [place] [address] [phone] HDL Cholesterol 64 mg/dL > Or=40 Cholesterol/HDL Ratio 3.1 < Or=5.0 LDL Chol,Calculated 108 mg/dL <130 13 Triglycerides 123 mg/dL <150 Non-HDL Cholesterol 134 mg/dL 14 Lipid Panel 05/06/2014 [facility] Cholesterol 189 mg/dL 125-[address] [place] [address] [phone] HDL Cholesterol 61 mg/dL > Or=40 Cholesterol/HDL Ratio 3.1 < Or=5.0 LDL Chol,Calculated 97 mg/dL <130 15 Triglycerides 153 mg/dL High <150 Non-HDL Cholesterol 128 mg/dL 16 Laboratory test 05/06/2014 [facility] Magnesium 2.0 mg/dL 1.5-2.[address] [place] [address] [phone] Laboratory test 02/05/2014 [facility] Magnesium 1.9 mg/dL 1.5-2.[address] [place], [place] [id number] [phone] Lipid Panel 02/05/2014 [facility] Cholesterol 203 mg/dL High 125-[address] [place] [address] [phone] HDL Cholesterol 58 mg/dL > Or=40 Triglycerides 179 mg/dL High <150 Non-HDL Cholesterol 146 mg/dL 17 Cholesterol/HDL Ratio 3.5 < Or=5.0 LDL Chol,Calculated 109 mg/dL <130 18 Laboratory 02/05/2014 [facility] Glucose,Random,Plasma 105 <140 test finding [address] mg/[place] [address] [phone] Laboratory 09/24/2013 [facility] PSA,Total 0.3 0.0-4.0 19 test finding [address] NG/[place] [address] [phone] Testosterone,Total,LC/MS/MS 389 ng/dL 250-1100 20 Comp Metabolic Panel 09/24/2013 [facility] Sodium 141 mmol/L 135-[address] [place] [address] [phone] Potassium 4.2 mmol/L 3.5-5.3 Chloride 105 mmol/L [...] 1.9-3.7 A/G Ratio 2.2 1.0-2.5 Egfr Non-Afr. [place] 82 ML/MIN/1.73M2 > Or=60 Egfr 95 ML/MIN/1.73M2 > Or=60 Lipid Panel 09/24/2013 [facility] Cholesterol 176 mg/dL 125-[address] [place] [address] [phone] HDL Cholesterol 57 mg/dL > Or=40 Cholesterol/HDL Ratio 3.1 < Or=5.0 LDL Chol,Calculated 96 mg/dL <130 23 Triglycerides 117 mg/dL <150 Non-HDL Cholesterol 119 mg/dL 24 CBC W/ Diff & PLT 09/24/2013 [facility] WBC 5.5 thous/L 3.8-10.[address] [place] [address] [phone] RBC 4.97 mill/L 4.20-5.80 Hemoglobin 15.4 g/dL 13.2-17.1 Hematocrit 45.3 % 38.5-50.0 MCV 91.2 FL 80.0-100.0 MCH 30.9 pg 27.0-33.0 MCHC 33.9 g/dL 32.0-36.0 RDW 12.8 % 11.0-15.0 Platelet Count 223 thous/L 140-400 Neutrophils,Absolute 3110 cells/L 1709-3524 Lymphocytes,Absolute 1740 cells/L 850-3900 Monocytes,Absolute 450 cells/L 200-950 Eosinophils,Absolute 150 cells/L 15-500 Basophils,Absolute 30 cells/L 0-200 Total Neutrophils,% 57 % Not Established Total Lymphocytes,% 32 % Not Established Monocytes,% 8 % Not Established Eosinophils,% 3 % Not Established Basophils,% 0 % Not Established TSH & T4,Free 09/24/2013 [facility] TSH 1.61 mIU/L 0.40-4.[address] [place] [address] [phone] T4,Free 1.1 ng/dL 0.8-1.8 Lipid Panel 06/04/2013 [facility] Cholesterol 178 mg/dL 125-200 [address] [facility] [place] [address] [phone] HDL Cholesterol 68 mg/dL > Or=40 Cholesterol/HDL Ratio 2.6 < Or=5.0 LDL Chol,Calculated 89 mg/dL <130 25 Triglycerides 103 mg/dL <150 Non-HDL Cholesterol 110 mg/dL 26 Hepatic Function 06/04/2013 [facility] Alkaline Phosphatase 46 U/L 40- 115 Panel [address] [facility] [place] [address] [phone] Ast 27 U/L 10-35 Alt 38 U/L 9-46 Bilirubin,Total 0.4 mg/dL 0.2-1.2 Bilirubin,Direct 0.1 mg/dL < Or=0.2 Protein,Total 7.0 g/dL 6.1-8.1 Albumin 4.6 g/dL 3.6-5.1 Globulin,Calculated 2.4 g/dL 1.9-3.7 A/G Ratio 1.9 1.0-2.5 Laboratory test 02/06/2013 [facility] Direct LDL 88 mg/dL <130 [address] [place] [address] [phone] Hepatic Function 02/06/2013 [facility] Alkaline 47 U/L 40-[address] [place] [address] [phone] Ast 32 U/L 10-35 Alt 37 U/L 9-46 Bilirubin,Total 0.6 mg/dL 0.2-1.2 Bilirubin,Direct 0.1 mg/dL < Or=0.2 Protein,Total 6.9 g/dL 6.1-8.1 Albumin 4.5 g/dL 3.6-5.1 Globulin,Calculated 2.4 g/dL 1.9-3.7 A/G Ratio 1.9 1.0-2.5 Basic Metabolic Panel 11/25/2012 [facility] Glucose 94 mg/dL 76-[address] [place] [address] [phone] BUN 16 mg/dL 5-23 Creatinine 0.8 mg/dL 0.5-1.4 Glom Filtration Rate, Estimate >60 mL/min >60 If >60 mL/min >60 28 BUN/Creat 20.0 ratio Sodium 140 mmol/L 136-145 Potassium 4.2 mmol/L 3.5-5.1 Chloride 105 mmol/L 98-107 Carbon Dioxide 27 mEq/L 18-29 Anion Gap 12 mEq/L 8-16 Calcium 8.9 mg/dL 8.5-10.1 CBC 11/25/2012 [facility] White Blood Count 4.9 K/uL 3.4-10.[address] [place] [address] [phone] Red Blood Count 4.79 M/uL 4.20-5.80 Hemoglobin 15.2 gm/dL 12.8-17.0 Hematocrit 44.5 % 38.0-48.0 Mean Cell Volume 92.9 fl 80.0-96.0 Mean Corpuscular HGB 31.7 pg 27.0-33.0 Mean Corpuscular HGB Conc 34.2 g/dL 31.7-36.0 Platelet Count 198 K/uL 150-400 Red Cell Distri Width %CV 11.8 % 11.6-15.8 Mean Platelet Volume 9.8 fL 6.6-10.6 Urine Screen 11/25/2012 [facility] Urine Color YELLOW Yellow [address] [place] [address] [phone] Urine Clarity CLEAR Clear Urine Glucose - Dipstick NEGATIVE mg/dL Negative Urine Bilirubin - Dipstick NEGATIVE Negative Urine Ketone NEGATIVE mg/dL Negative Urine Specific [place] 1.010 1.010-1.030 Urine Blood NEGATIVE Negative Urine PH 6.0 Low 6.5-7.5 Urine Protein - Dipstick NEGATIVE mg/dL Negative Urine Urobilinogen - Dipstick 0.2 E.U./dL 0.2-1.0 Urine Nitrite - Dipstick NEGATIVE Negative Urine Leuk Esterase NEGATIVE Negative Laboratory test 08/13/2012 [facility] Calcium 8.9 mg/dL 8.6-10.[address] [place] [address] [phone] Laboratory test 08/13/2012 [facility] Magnesium 1.8 mg/dL 1.5-2.[address] [place] [address] [phone] TSH 1.33 mIU/L 0.40-4.50 T4,Free 1.1 ng/dL 0.8-1.8 29 PSA,Total 0.3 NG/ML 0.0-4.0 30 Basic Metabolic Panel 08/13/2012 [facility] Sodium 136 mmol/L 135-[address] [place] [address] [phone] Potassium 4.1 mmol/L 3.5-5.3 Chloride 102 mmol/L 98-110 Carbon Dioxide 26 mmol/L 19-30 Calcium 8.9 mg/dL 8.6-10.3 Glucose 118 mg/dL High 65-99 31 Urea Nitrogen 15 mg/dL 7-25 Creatinine 0.87 mg/dL 0.70-1.33 32 BUN/Creatinine Ratio 16.9 6-22 Egfr Non-Afr. [place] 96 ML/MIN/1.73M2 > Or=60 Egfr 112 ML/MIN/1.73M2 > Or=60 Hepatic Function 08/13/2012 [facility] Alkaline Phosphatase 49 U/L 40- [address] [place] [address] [phone] Ast 38 U/L High 10-35 Alt 44 U/L 9-60 Bilirubin,Total 0.5 mg/dL 0.2-1.2 Bilirubin,Direct 0.1 mg/dL < Or=0.2 Protein,Total 6.6 g/dL 6.1-8.1 Albumin 4.4 g/dL 3.6-5.1 Globulin,Calculated 2.2 g/dL 1.9-3.7 A/G Ratio 2.0 1.0-2.5 Laboratory test 08/13/2012 [facility] Phosphorus 3.1 mg/dL 2.5-4.[address] [place] [address] [phone] Lipid Panel 08/13/2012 [facility] Cholesterol 185 mg/dL 125-[address] [place] [address] [phone] HDL Cholesterol 71 mg/dL > Or=40 Cholesterol/HDL Ratio 2.6 < Or=5.0 LDL Chol,Calculated 87 mg/dL <130 33 Triglycerides 133 mg/dL <150 Non-HDL Cholesterol 114 mg/dL 34 Lipid Panel 06/09/2012 [facility] Cholesterol 215 mg/dL High 125-[address] [place] [address] [phone] HDL Cholesterol 67 mg/dL > Or=40 Cholesterol/HDL Ratio 3.2 < Or=5.0 LDL Chol,Calculated 121 mg/dL <130 35 Triglycerides 136 mg/dL <150 Non-HDL Cholesterol 148 mg/dL 36 Vitamin D, 25 08/27/2011 [facility] Vitamin 10 ng/mL Low 30-[address] D,25-Oh,[place] [address] [phone] Vitamin D,25-Oh,D3 10 ng/mL Vitamin D,25-Oh,D2 <4 ng/mL 37 TSH & T4,Free 08/27/2011 [facility] TSH 1.29 mIU/L 0.40-4.[address] [place] [address] [phone] T4,Free 1.2 ng/dL 0.8-1.8 Laboratory test 08/27/2011 [facility] PSA,Total 0.3 NG/ML 0.0-4.0 [address] [place] [address] [phone] Testosterone,Total,Males 320 ng/dL 241-827 39 Comp Metabolic Panel 08/27/2011 [facility] Sodium 140 mmol/L 135-[address] [place], [place] [address] [phone] Potassium 3.9 mmol/L 3.5-5.3 Chloride 103 mmol/L [...] 2.1-3.7 A/G Ratio 2.0 1.0-2.1 Egfr Non-Afr. [place] 96 ML/MIN/1.73M2 > Or=60 Egfr 111 ML/MIN/1.73M2 > Or=60 CBC W/ Diff & PLT 08/27/2011 [facility] WBC 4.5 thous/L 3.8-10.[address] [place] [address] [phone] RBC 4.74 mill/L 4.20-5.80 Hemoglobin 15.1 g/dL 13.2-17.1 Hematocrit 44.9 % 38.5-50.0 MCV 94.9 FL 80.0-100.0 MCH 31.8 pg 27.0-33.0 MCHC 33.5 g/dL 32.0-36.0 RDW 12.7 % 11.0-15.0 Platelet Count 216 thous/L 140-400 Neutrophils,Absolute 2560 cells/L 8877-2136 Lymphocytes,Absolute 1430 cells/L 850-3900 Monocytes,Absolute 380 cells/L 200-950 Eosinophils,Absolute 110 cells/L 15-500 Basophils,Absolute 30 cells/L 0-200 Total Neutrophils,% 57 % 38-80 Total Lymphocytes,% 32 % 15-49 Monocytes,% 8 % 0-13 Eosinophils,% 2 % 0-8 Basophils,% 1 % 0-2 Hepatic Function 08/27/2011 [facility] Alkaline Phosphatase 57 U/L 40- [address] [place], [place] [address] [phone] Ast 33 U/L 10-35 Alt 39 U/L 9-60 Bilirubin,Total 0.4 mg/dL 0.2-1.2 Bilirubin,Direct 0.1 mg/dL < Or=0.2 Protein,Total 7.3 g/dL 6.2-8.3 Albumin 4.9 g/dL 3.6-5.1 Globulin,Calculated 2.4 g/dL 2.1-3.7 A/G Ratio 2.0 1.0-2.1 Laboratory 08/27/2011 [facility] LDL Cholesterol,Direct 101 <130 42 test finding [address] mg/[place] [address] [phone] Throat-Beta 07/20/2011 Year Up M -------- [address] -------- [place] [address] <SEE [phone] NOTE> Laboratory 05/01/2011 [facility] LDL Cholesterol,Direct 83 mg/dL <130 44 test finding [address] [place], [place] [address] [phone] Hepatic 05/01/2011 [facility] Alkaline Phosphatase 48 U/L 40-115 Function Panel [address] [place], [place] [address] [phone] Ast 28 U/L 10-35 Alt 45 U/L 9-60 Bilirubin,Total 0.7 mg/dL 0.2-1.2 Bilirubin,Direct 0.1 mg/dL < Or=0.2 Protein,Total 6.8 g/dL 6.2-8.3 Albumin 4.5 g/dL 3.6-5.1 Globulin,Calculated 2.3 g/dL 2.1-3.7 A/G Ratio 2.0 1.0-2.1 Laboratory 10/17/2010 [facility] LDL Cholesterol,Direct 69 mg/dL <130 45 test finding [address] [place] [address] [phone] Hepatic 10/17/2010 [facility] Alkaline Phosphatase 43 U/L 40-115 Function Panel [address] [facility]. [place], [place] [address] [phone] Ast 27 U/L 10-35 Alt 27 U/L 9-60 Bilirubin,Total 0.5 mg/dL 0.2-1.2 Bilirubin,Direct 0.1 mg/dL < Or=0.2 Protein,Total 6.6 g/dL 6.2-8.3 Albumin 4.4 g/dL 3.6-5.1 Globulin,Calculated 2.2 g/dL 2.1-3.7 A/G Ratio 2.0 1.0-2.1 Lipid Panel 07/20/2010 [facility] Cholesterol 200 mg/dL 125-[address] [place] [address] [phone] HDL Cholesterol 55 mg/dL > Or=40 Triglycerides 305 mg/dL High <150 Cholesterol/HDL Ratio 3.6 < Or=5.0 LDL Chol,Calculated 84 mg/dL <130 46 Hepatic Function 07/20/2010 [facility] Alkaline Phosphatase 54 U/L 40- [address] [place] [address] [phone] Ast 28 U/L 10-35 Alt 40 U/L 9-60 Bilirubin,Total 0.4 mg/dL 0.2-1.2 Bilirubin,Direct 0.1 mg/dL < Or=0.2 Protein,Total 7.3 g/dL 6.2-8.3 Albumin 4.7 g/dL 3.6-5.1 Globulin,Calculated 2.6 g/dL 2.1-3.7 A/G Ratio 1.8 1.0-2.1 Hepatic Function 05/29/2010 [facility] Alkaline Phosphatase 55 U/L 40- 115 Panel [address] [facility] [place] [address] [phone] Ast 37 U/L High 10-35 Alt 48 U/L 9-60 Bilirubin,Total 0.6 mg/dL 0.2-1.2 Bilirubin,Direct 0.1 mg/dL < Or=0.2 Protein,Total 7.3 g/dL 6.2-8.3 Albumin 4.8 g/dL 3.6-5.1 Globulin,Calculated 2.5 g/dL 2.1-3.7 A/G Ratio 1.9 1.0-2.1 Lipid Panel 05/29/2010 [facility] Cholesterol 240 mg/dL High 125-200 [address] [facility] [place] [address] [phone] HDL Cholesterol 67 mg/dL > Or=40 Triglycerides 153 mg/dL High <150 Cholesterol/HDL Ratio 3.6 < Or=5.0 LDL Chol,Calculated 142 mg/dL High <130 47 Lipid Panel 12/23/2009 [facility] Cholesterol 194 mg/dL 125-200 [address] [place] [address] [phone] HDL Cholesterol 56 mg/dL > Or=40 Triglycerides 201 mg/dL High <150 Cholesterol/HDL Ratio 3.5 < Or=5.0 LDL Chol,Calculated 98 mg/dL <130 48 Hepatic Function 12/23/2009 [facility] Alkaline Phosphatase 54 U/L 40- 115 Panel [address] [facility] [place] [address] [phone] Ast 28 U/L 10-35 Alt 30 U/L 9-60 Bilirubin,Total 0.5 mg/dL 0.2-1.2 Bilirubin,Direct 0.1 mg/dL < Or=0.2 Protein,Total 6.9 g/dL 6.2-8.3 Albumin 4.5 g/dL 3.6-5.1 Globulin,Calculated 2.4 g/dL 2.1-3.7 A/G Ratio 2.0 1.0-2.1 Hepatic Function 08/09/2009 [facility] Alkaline Phosphatase 50 U/L 40- 115 Panel [address] [place] [address] [phone] Ast 31 U/L 10-35 Alt 31 U/L 9-60 Bilirubin,Total 0.6 mg/dL 0.2-1.2 Bilirubin,Direct 0.1 mg/dL < Or=0.2 Protein,Total 6.7 g/dL 6.2-8.3 Albumin 4.6 g/dL 3.6-5.1 Globulin,Calculated 2.1 g/dL 2.1-3.7 A/G Ratio 2.2 High 1.0-2.1 TSH & T4,Free 08/09/2009 [facility] TSH,3RD 1.80 mIU/L 0.40-4.[address] [place] [address] [phone] T4,Free 1.0 ng/dL 0.8-1.8 Comp Metabolic Panel 08/09/2009 [facility] Sodium 138 mmol/L 135-[address] [place] [address] [phone] Potassium 4.3 mmol/L 3.5-5.3 Chloride 104 mmol/L [...] A/G Ratio 2.2 High 1.0-2.1 Egfr Non-Afr. [place] >60 ML/MIN/1.73M2 > Or=60 Egfr >60 ML/MIN/1.73M2 > Or=60 Laboratory test 08/09/2009 [facility] PSA,Total 0.3 NG/ML 0.0-4.0 [address] [place] [address] [phone] Lipid Panel 08/09/2009 [facility] Cholesterol 176 mg/dL 125-[address] [place] [address] [phone] HDL Cholesterol 69 mg/dL > Or=40 Triglycerides 99 mg/dL <150 Cholesterol/HDL Ratio 2.6 < Or=5.0 LDL Chol,Calculated 87 mg/dL <130 51 Lipid Panel 02/07/2009 [facility] Cholesterol 166 mg/dL 125-[address] [place] [address] [phone] HDL Cholesterol 62 mg/dL > Or=40 Triglycerides 105 mg/dL <150 Cholesterol/HDL Ratio 2.7 < Or=5.0 LDL Chol,Calculated 83 mg/dL <130 52 Hepatic Function 02/07/2009 [facility] Alkaline Phosphatase 50 U/L 40- [address] [place] [address] [phone] Ast 26 U/L 10-35 Alt 33 U/L 9-60 Bilirubin,Total 0.5 mg/dL 0.2-1.2 Bilirubin,Direct 0.1 mg/dL < Or=0.2 Protein,Total 6.9 g/dL 6.2-8.3 Albumin 4.4 g/dL 3.6-5.1 Globulin,Calculated 2.5 g/dL 2.1-3.7 A/G Ratio 1.8 1.0-2.1 Lipid Panel 10/11/2008 [facility] Cholesterol 165 mg/dL 125-[address] [place] [address] [phone] HDL Cholesterol 59 mg/dL > Or=40 Triglycerides 121 mg/dL <150 Cholesterol/HDL Ratio 2.8 < Or=5.0 LDL Chol,Calculated 82 mg/dL <130 53 Hepatic Function 10/11/2008 [facility] Alkaline Phosphatase 42 U/L 40- [address] [place] [address] [phone] Ast 22 U/L 10-35 Alt 31 U/L 9-60 Bilirubin,Total 0.5 mg/dL 0.2-1.2 Bilirubin,Direct 0.1 mg/dL < Or=0.2 Protein,Total 6.8 g/dL 6.2-8.3 Albumin 4.5 g/dL 3.6-5.1 Globulin,Calculated 2.3 g/dL 2.1-3.7 A/G Ratio 2.0 1.0-2.1 Laboratory test 07/09/2008 [facility] PSA,Total 0.4 NG/ML 0.0-4.[address] [place], [place] [address] [phone] Lipid Panel 07/09/2008 [facility] Cholesterol 174 mg/dL 125-[address] [place] [address] [phone] HDL Cholesterol 65 mg/dL > Or=40 Cholesterol/HDL Ratio 2.7 < Or=5.0 LDL Chol,Calculated 83 mg/dL <130 54 Triglycerides 132 mg/dL <150 TSH & T4,Free 07/09/2008 [facility] TSH,3RD 1.93 mU/L 0.40-4.[address] [place] [address] [phone] T4,Free 1.1 ng/dL 0.8-1.8 Comp Metabolic Panel 07/09/2008 [facility] Sodium 142 mmol/L 135-[address] [place] [address] [phone] Potassium 4.3 mmol/L 3.5-5.3 Chloride 103 mmol/L [...] 2.1-3.7 A/G Ratio 1.7 1.0-2.1 Egfr Non-Afr. [place] >60 ML/MIN/1.73M2 > Or=60 Egfr >60 ML/MIN/1.73M2 > Or=60 CBC W/ Diff & PLT 07/09/2008 [facility] WBC 5.8 thous/L 3.8-10.[address] [place] [address] [phone] RBC 4.76 mill/L 4.20-5.80 Hemoglobin 15.2 g/dL 13.2-17.1 Hematocrit 44.0 % 38.5-50.0 MCV 92.4 FL 80.0-100.0 MCH 32.0 pg 27.0-33.0 MCHC 34.7 g/dL 32.0-36.0 RDW 11.9 % 11.0-15.0 Platelet Count 234 thous/L 140-400 Platelet Sufficiency NORMAL Normal Neutrophils,Absolute 3560 cells/L 3921-2903 Bands,Absolute DNR cells/L 0-750 Metamyelocytes,Absolute DNR cells/L [...] [facility] Cholesterol 169 mg/dL 125-200 6 [place], [place] [id number] [phone] HDL Cholesterol 59 mg/dL > Or=40 Triglycerides 120 mg/dL <150 Cholesterol/HDL Ratio 2.9 < Or=5.0 LDL Chol,Calculated 86 mg/dL <130 56 Hepatic Function 04/19/2008 [facility] Alkaline Phosphatase 50 U/L 40- 115 Panel 6 [place] [address] [phone] Ast 32 U/L 10-35 Alt 42 U/L 9-60 Bilirubin,Total 0.8 mg/dL 0.2-1.2 Bilirubin,Direct 0.2 mg/dL < Or=0.2 Protein,Total 7.5 g/dL 6.2-8.3 Albumin 4.7 g/dL 3.6-5.1 Globulin,Calculated 2.8 g/dL 2.1-3.7 A/G Ratio 1.7 1.0-2.1 CBC W/ Diff & PLT 06/27/2007 [facility] WBC 4.9 thous/L 3.8-10.[address] [place] [address] [phone] RBC 4.82 mill/L 4.20-5.80 Hemoglobin 15.4 g/dL 13.2-17.1 Hematocrit 45.0 % 38.5-50.0 MCV 93.3 FL 80.0-100.0 MCH 32.0 pg 27.0-33.0 MCHC 34.3 g/dL 32.0-36.0 RDW 12.1 % 11.0-15.0 Platelet Count 212 thous/L 140-400 Platelet Sufficiency NORMAL Normal Neutrophils,Absolute 2890 cells/L 2118-4813 Bands,Absolute DNR cells/L 0-750 Metamyelocytes,Absolute DNR cells/L [...] Phosphatase 48 U/L 40- [address] [place], [place] [id number] [phone] Ast 27 U/L 10-35 Alt 40 U/L 9-60 Bilirubin,Total 0.8 mg/dL 0.2-1.2 Bilirubin,Direct 0.1 mg/dL < Or=0.2 Protein,Total 6.9 g/dL 6.2-8.3 Albumin 4.3 g/dL 3.6-5.1 TSH & T4,Free 06/27/2007 [facility] TSH,3RD 1.86 mU/L 0.40-4.[address] [place], [place] [id number] [phone] T4,Free 1.2 ng/dL 0.8-1.8 Comp Metabolic Panel 06/27/2007 [facility] Sodium 138 mmol/L 135-[address] [place] [address] [phone] Potassium 4.3 mmol/L 3.5-5.3 Chloride 101 mmol/L [...] 2.1-3.7 A/G Ratio 1.7 1.0-2.1 Egfr Non-Afr. [place] >60 ML/MIN/1.7 > Or=60 Egfr >60 ML/MIN/1.7 > Or=60 Lipid Panel 06/27/2007 [facility] Cholesterol 173 mg/dL 125-[address] [place] [address] [phone] HDL Cholesterol 65 mg/dL > Or=40 58 Cholesterol/HDL Ratio 2.7 < Or=5.0 LDL Chol,Calculated 92 mg/dL <130 59 Triglycerides 80 mg/dL <150 Laboratory test 06/27/2007 [facility] PSA,Total 0.4 NG/ML 0.0-4.0 [address] [place] [address] [phone] Lipid Panel 02/10/2007 [facility] Cholesterol 186 mg/dL 125-[address] [place] [address] [phone] HDL Cholesterol 54 mg/dL > Or=40 61 Cholesterol/HDL Ratio 3.4 < Or=5.0 LDL Chol,Calculated 100 mg/dL <130 62 Triglycerides 159 mg/dL High <150 Hepatic Function 02/10/2007 [facility] Alkaline Phosphatase 44 U/L 40- [address] [place] [address] [phone] Ast 26 U/L 10-35 Alt 35 U/L 9-60 Bilirubin,Total 0.8 mg/dL 0.2-1.2 Bilirubin,Direct 0.1 mg/dL < Or=0.2 Protein,Total 6.9 g/dL 6.2-8.3 Albumin 4.1 g/dL 3.6-5.1 Laboratory test 10/25/2006 [facility] Rapid Urease NEGATIVE finding [address] [place] [address] [phone] CBC W/ Diff & PLT 08/19/2006 [facility] WBC 4.8 thous/L 3.8-[address] [place] [address] [phone] RBC 4.77 mill/L 4.20-5.80 Hemoglobin 15.2 g/dL 13.2-17.1 Hematocrit 43.6 % 38.5-50.0 MCV 91.5 FL 80.0-100.0 MCH 31.9 pg 27.0-33.0 MCHC 34.9 g/dL 32.0-36.0 RDW 11.9 % 11.0-15.0 Platelet Count 218 thous/L 140-400 Platelet Sufficiency NORMAL Normal Neutrophils,Absolute 2790 cells/L 8993-8839 Bands,Absolute DNR cells/L 0-750 Metamyelocytes,Absolute DNR cells/L [...] [facility] Sodium 138 mmol/L 135-[address] [place] [address] [phone] Potassium 4.1 mmol/L 3.5-5.3 Chloride 102 mmol/L [...] PSA,Total 0.4 NG/ML 0.0-4.0 [address] [place] [address] [phone] Lipid Panel 08/19/2006 [facility] Cholesterol 170 mg/dL <[address] [place] [address] [phone] HDL Cholesterol 62 mg/dL >40 66 Cholesterol/HDL Ratio 2.7 <5.0 LDL Chol,Calculated 88 mg/dL <130 67 Triglycerides 99 mg/dL <150 Hepatic Function 08/19/2006 [facility] Alkaline Phosphatase 51 U/L 20- [address] [place] [address] [phone] Ast 25 U/L 3-50 Alt 34 U/L 3-60 Bilirubin,Total 0.8 mg/dL 0.2-1.5 Bilirubin,Direct 0.1 mg/dL 0.0-0.3 Protein,Total 7.1 g/dL 6.0-8.3 Albumin 4.6 g/dL 3.5-4.9 Lipid Panel 08/27/2005 [facility] Cholesterol 147 mg/dL <[address] [place] [address] [phone] HDL Cholesterol 54 mg/dL >40 68 Triglycerides 99 mg/dL <150 Cholesterol/HDL Ratio 2.7 <5.0 LDL Chol,Calculated 73 mg/dL <130 69 Hepatic Function 08/27/2005 [facility] Alkaline Phosphatase 44 U/L 20- [address] [place] [address] [phone] Ast 25 U/L 3-50 Alt 31 U/L 3-60 Bilirubin,Total 0.7 mg/dL 0.2-1.5 Bilirubin,Direct 0.1 mg/dL 0.0-0.3 Protein,Total 7.3 g/dL 6.0-8.3 Albumin 4.4 g/dL 3.5-4.9 1 FASTING 2 LDL-C is now calculated using the Nagi-Bhavana calculation, which is a validated novel method providing better accuracy than the Friedewald equation in the estimation of LDL-C. Nagi AGUDELO et al.TYSON.2013;310(19):9813-2652 Desirable range <100 mg/dL for primary prevention; <70 mg/dL for patients with CHD or diabetic patients with >or=2 CHD risk factors. For additional information, please refer to http://tinyclues.Mobyko/faq/XVF841(This link is being provided for informational/educational purposes [...] the estimation of LDL-C. Nagi AGUDELO et al.TYSON.2013;310(30):3747-0637 Desirable range <100 mg/dL for primary prevention; <70 mg/dL for patients with CHD or diabetic patients with >or=2 CHD risk factors. For additional information, please refer to http://tinyclues.Mobyko/faq/CPD439(This link is being provided for informational/educational purposes [...] Vit D, (D2,D3),LC/MS/MS is recommended: Order code 60026 (patients >2 yrs). 7 GLUCOSE REFERENCE RANGE BASED ON FASTING SPECIMEN. 8 The upper reference limit for Creatinine is approximately 13% higher for people identified as -[place]. 9 LDL-CHOLESTEROL RISK CATEGORY* GOAL VERY HIGH (E.G. DIABETES + CVD) <70 MG/DL HIGH (DIABETICS; CHD RISK EQUIVALENTS) <100 MG/DL MODERATELY HIGH (MULTIPLE(2+) RISK FACTORS) <130 MG/DL 0 TO 1 RISK FACTORS <160 MG/DL * NCEP REPORT. CIRCULATION 2004; 110: 227-239 10 Target for non-HDL cholesterol is 30 mg/dL higher than LDL cholesterol target. 11 For more information on this test, go to http://tinyclues.Envysion/faq/ TotalTestosteroneLCMSMS 12 THIS TEST WAS PERFORMED USING [...] more information on this test, go to http://education.Envysion/faq/ TotalTestosteroneLCMSMS 21 GLUCOSE REFERENCE RANGE BASED ON FASTING SPECIMEN. 22 The upper reference limit for Creatinine is approximately 13% higher for people identified as -[place]. 23 LDL-CHOLESTEROL RISK CATEGORY* GOAL VERY HIGH [...] OF FREE T4 REAGENT AVAILABLE FROM THE SAFETY ASSISTANT PRODUCES RESULTS THAT ARE APPROXIMATELY 9% HIGHER [...] approximately 13% higher for people identified as -[place]. 33 LDL-CHOLESTEROL RISK CATEGORY* GOAL VERY HIGH [...] IS THE RECOMMENDED ASSAY. THIS TEST CODE (01103R) MUST BE COLLECTED IN A RED-TOP TUBE WITH NO GEL. THE ENDOCRINE SOCIETY RECOMMENDS OBTAINING AT LEAST TWO MORNING (8-10 A.M.) SAMPLES ON DIFFERENT DAYS WHEN SCREENING FOR HYPOGONADISM. 40 GLUCOSE REFERENCE RANGE BASED ON FASTING SPECIMEN. 41 The upper reference limit for Creatinine is approximately 13% higher for people identified as -[place]. 42 LDL-CHOLESTEROL RISK CATEGORY* GOAL VERY HIGH (E.G. DIABETES + CVD) <70 MG/DL HIGH (DIABETICS; CHD RISK EQUIVALENTS) <100 MG/DL MODERATELY HIGH (MULTIPLE(2+) RISK FACTORS) <130 MG/DL 0 TO 1 RISK FACTORS <160 MG/DL * NCEP REPORT. CIRCULATION 2004; 110: 227-239 43 RUN DATE: 07/22/11 [facility] NMI LIVE PAGE 1 RUN TIME: 832 Specimen Inquiry RUN USER: INTERFACE Name: MEHDI HARMON Status: DEP CLI Re07/20/11 Age/Sex: 55/M Unit#: [id number] Location: [facility]. : 55 SPEC #: [id number] JETT: 07/20/11 STATUS: COMP REQ #: [id number] RECD: 07/20/[address]: Dmitry AGRAWAL,Radha Doyle SOURCE: THROAT ENTR: 07/20/[address] [facility] [address]: Sydnee AGRAWAL,Mauri Kerr [facility]: ORDERED: THROAT-BETA STR ACT WKST: BS 07/22/11 #1 Procedure Result Verified Site > THROAT-BETA STREP CULTURE Final 07/22/11- 832 ML NEGATIVE FOR GROUP A BETA STREPTOCOCCUS - [facility] Permit #[id number] [facility] [employer] [place] [id number] DEPARTMENT OF PATHOLOGY, [facility] [employer] [place], [place] [address] [facility] Permit #[id number] Umesh Marx M.D. Director Paul Perera M.D. Metal Window Frame Maker 44 LDL-CHOLESTEROL RISK CATEGORY* GOAL VERY HIGH [...] INTERCHANGEABLY. THIS ASSAY WAS PERFORMED USING THE [employer] CHEMILUMINESCENCE METHOD. SERUM PSA LEVELS SHOULD NOT [...] FOR RACE, IF THE PATIENT RACE IS -[place], THE GFR ESTIMATE MUST BE MULTIPLIED BY A FACTOR OF 1.21. 65 PSA VALUES FROM DIFFERENT ASSAY METHODS CANNOT BE USED INTERCHANGEABLY. THIS ASSAY WAS PERFORMED USING THE [employer] CHEMILUMINESCENCE METHOD. 66 HDL REFERENCE RANGES ADULTS [...] 227-239 Procedures Date Code Description Status 03/21/2015 03769 Spirometry Graphic Record/Max Voluntary Vent Completed 03/21/2015 56429 PVR-Atrerial Study Completed 03/21/2015 93022 Holter Monitor Office Completed 03/17/2015 [id number] Bone Mineral Density Test Completed 03/17/2015 73185 Bone Density Completed 03/15/2015 94325 Non-Invcorrotid/Comp /Bilat Study Completed 03/15/2015 55988 Echocardiography Completed 09/24/2013 43670 Bone Density Completed 09/24/2013 95148 EKG-Tracing & Report Completed 09/24/2013 05655 Spirometry Graphic Record/Max Voluntary Vent Completed 09/24/2013 38139 Holter Monitor Office Completed 09/24/2013 58646 PVR-Atrerial Study Completed 09/17/2013 54263 Non-Invcorrotid/Comp /Bilat Study Completed 09/17/2013 70393 Echocardiography Completed 10/09/2012 25151 Non-Invcorrotid/Comp /Bilat Study Completed 10/09/2012 28519 Echocardiography Completed 09/30/2012 31433 Spirometry Graphic Record/Max Voluntary Vent Completed 09/30/2012 74759 Holter Monitor Office Completed 08/27/2011 24825 PVR-Atrerial Study Completed 08/27/2011 98843 Holter Monitor Office Completed 08/27/2011 54742 Spirometry Graphic Record/Max Voluntary Vent Completed 08/23/2011 13910 Bone Density Completed 08/22/2011 98407 Echocardiography Completed 08/22/2011 21396 Non-Invcorrotid/Comp /Bilat Study Completed 10/10/2010 8 Records Completed 12/23/2009 68315 PFT Evaluation Completed 08/09/2009 51938 Non-Invcorrotid/Comp /Bilat Study Completed 08/09/2009 45341 Echocardiography Completed 08/09/2009 79303 Holter Monitor Office Completed 08/09/2009 49772 EKG-Tracing & Report Completed 08/10/2008 54065 Holter Monitor Office Completed 07/09/2008 31106 Non-Invcorrotid/Comp /Bilat Study Completed 07/09/2008 16500 Doppler Color Flow Velocity Completed 07/09/2008 18003 Doppler/ECHO Completed 07/09/2008 70668 ECHO-2D W/Wo M-Mode Completed 07/09/2008 64936 EKG-Tracing & Report Completed 05/11/2008 63504 Injections Thera,Prop,Paula, B12 Completed 06/27/2007 71585 Spirometry Graphic Record/Max Voluntary Vent Completed 06/27/2007 83843 Non-Invcorrotid/Comp /Bilat Study Completed 06/27/2007 80978 Doppler Color Flow Velocity Completed 06/27/2007 81337 Doppler/ECHO Completed 06/27/2007 07082 ECHO-2D W/Wo M-Mode Completed 06/27/2007 41834 Holter Monitor Office Completed 10/25/2006 06928585 Colonoscopy Completed 04/23/2006 63028 Holter Monitor Office Completed 04/23/2006 41831 EKG-Tracing & Report Completed 04/22/2006 92322 Doppler/ECHO Completed 04/22/2006 44270 ECHO-2D W/Wo M-Mode Completed 04/22/2006 01147 Non-Invcorrotid/Comp /Bilat Study Completed 04/22/2006 45263 Doppler Color Flow Velocity Completed 02/19/2005 30969 Holter Monitor Office Completed 10/10/2004 84128 Spirometry Graphic Record/Max Voluntary Vent Completed 10/10/2004 64184 EKG-Tracing & Report Completed 10/02/2004 61141 Doppler Color Flow Velocity Completed 10/02/2004 64882 Doppler/ECHO Completed 10/02/2004 01175 ECHO-2D W/Wo M-Mode Completed 03/21/2004 12681 Spirometry Graphic Record/Max Voluntary Vent Completed Encounters Type Date Location Provider Dx Diagnosis Office Visit 01/28/2018 Main Office Mauri Randhawa MD G47.00 Insomnia, unspecified 3:00p E78.5 Hyperlipidemia, unspecified J45.30 Mild persistent asthma, uncomplicated K21.9 Gastro-esophageal reflux disease without esophagitis I11.9 Hypertensive heart disease without heart failure Office Visit 05/17/2016 11:30a Main Office Grace Randhawa G47.00 Insomnia, M.D. unspecified E78.5 Hyperlipidemia, unspecified J45.30 Mild persistent asthma, uncomplicated Office Visit 10/26/2015 8:45p Main Office Herminio Alvarez MD G47.00 Insomnia, unspecified Office Visit 10/20/2015 2:00p Main Office Grace Randhawa, E78.5 Hyperlipidemia, M.D. unspecified K21.9 Gastro-esophageal reflux [...] Reflux Office Visit 06/09/2013 3:10p Main Office Muari Randhawa MD 424.0 Mitral Valve Disorder 307.42 [...] 3:20p Main Office Mauri Randhawa, 272.4 Hyperlipidemia Taiwo AGRAWAL Unspec 607.84 Impotence Organic Origin V04.81 Need For Prophylactic Vaccination & Inoculation/Influenza Office Visit 03/09/2008 3:10p Main Office Mauri Randhawa, 727.05 Tenosynovitis Hand & MD Wrist Other Office Visit 11/03/2007 2:30p Main Office Mauri Randhawa, 272.4 Hyperlipidemia Taiwo AGRAWAL Unspec 272.40 Hyperlipidemia 307.42 Sleep Disorder Persistent [...] Office Visit 04/16/2006 11:40a Main Office Mauri Randhawa 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 Office Visit 09/25/2005 11:40a Main Office Mauri Randhawa 466.00 Acute Bronchitis MD Office Visit 09/11/2005 10:10a Main Office Mauri Randhawa 272.40 Hyperlipidemia 493.00 Asthma Extrinsic Unspecified 427.90 [...] 11:20a Main Office Mauri Randhawa, 272.40 Hyperlipidemia MD 493.92 Asthma Unspec W/ Acute Exacerbation Plan of Treatment 01/28/2018 - Mauri Randhawa MDG47.00 Insomnia, unspecifiedComments:Discussed sleep [...] guidelines and materials provided.J45.30 Mild persistent asthma, [id number] Gastro-esophageal reflux disease without esophagitisComments: Discussed role [...] checks and laboratory tests related to medication reviewed.
[2018-04-21 09:50] VITALS: BP 122/70
--- NOTE | 2018-04-21 09:57 | UC ---
Ear Complaint HPI - HPI Summary HPI Summary: 62-year-old male with history of sinusitis in the past, presents with 1 week of sinus congestion, headache, sinus pressure, bilateral ear pressure consistent with episodes of sinusitis he has had in the past. Patient has taken Augmentin and azithromycin in the past with good effect. Denies any cough. No sick contacts. No changes in vision or blurry vision or double vision. - History of Current Complaint Chief Complaint: UCRespiratory Stated Complaint: SINUS COMPLAINT/BI LAT EARS Pain Intensity: 4 - Allergies/Home Medications Allergies/Adverse Reactions: Allergies Allergy/AdvReac Type Severity Reaction Status Date / Time No Known Allergies Allergy Verified 04/21/18 09:43 PMH/Surg Hx/FS Hx/Imm Hx - Additional Past Medical History Additional PMH: Sinusitis in the past Previously Healthy: Yes - Surgical History Surgical History: Yes Surgery Procedure, Year, and Place: SPINAL FUSION C5,6. 2 SINUS SX. FX R HAND. VASECTOMY - Family History Known Family History: Positive: Cardiac Disease - Social History Alcohol Use: Daily Alcohol Amount: scotch Substance Use Type: None Smoking Status (MU): Former Smoker When Did the Patient Quit Smoking/Using Tobacco: 1983 - Immunization History Most Recent Tetanus Shot: UTD per pt. Review of Systems Constitutional: Negative Skin: Negative Eyes: Negative ENT: Sinus Congestion, Sinus Pain/Tenderness Respiratory: Negative Cardiovascular: Negative Gastrointestinal: Negative Neurovascular: Negative Musculoskeletal: Negative Neurological: Negative All Other Systems Reviewed And Are Negative: Yes Physical Exam - Summary Physical Exam Summary: Gen: alert, in no acute distress HEENT: EOMI, normocephalic, atruamatic, bulging clear bilateral TMs without erythema. Minor maxillary tenderness to percussion bilaterally Neck: supple, no masses CV: Normal s1 s2, no murmurs Resp: normal breath sounds b/l GI: no tenderness, no masses Musculoskeletal: normal ROM all 4 extremities Neuro: no obvious focal neurological deficits, cranial nerves II-12 intact Skin: no rash Lymph: no lymphadenopathy Psych: appropriate affect, oriented Triage Information Reviewed: Yes Vital Signs: Initial Vital Signs Temp 36.3 C 04/21/18 09:46 Pulse 59 04/21/18 09:46 Resp 15 04/21/18 09:46 BP 122/70 04/21/18 09:46 Pulse Ox 100 04/21/18 09:46 Ear Complaint Course/Dx - Course Course Of Treatment: Patient started on antibiotic therapy for sinusitis, instructed to follow up with primary care physician in one to 2 weeks. Agrees to and understands discharge instructions. - Differential Dx/Diagnosis Provider Diagnoses: Sinusitis Discharge - Sign-Out/Discharge Documenting (check all that apply): Patient Departure All imaging exams completed and their final reports reviewed: No Studies - Discharge Plan Condition: Stable Disposition: HOME Prescriptions: Amoxicillin/Clavulanate TAB* [Augmentin TAB 875*] 875 mg PO BID #28 tab Patient Education Materials: Rhinosinusitis (DC) Referrals: Mauri Randhawa MD [Primary Care Provider] - Additional Instructions: PLEASE FINISH FULL COURSE OF ANTIBIOTIC PLEASE MAKE AN APPOINTMENT TO BE SEEN BY A PRIMARY CARE DOCTOR WITHIN 1-2 WEEKS PLEASE REPORT TO THE ER FOR ANY WORSENING OR CONCERNING SYMPTOMS - Billing Disposition and Condition Condition: STABLE Disposition: Home
== END 2018-04-21 10:01 | disposition home or self-care (01) ==
LOC: UCCORT 09:21
DX: J32.9 Chronic sinusitis, unspecified (principal); Z87.891 Personal history of nicotine dependence
CPT/HCPCS: 99212; G0463

== ENCOUNTER 2019-06-27 10:33 | Emergency (ER) | payer OTHER ==
[2019-06-27 11:41] VITALS: BP 138/61
--- NOTE | 2019-06-27 12:18 | UC ---
Respiratory Complaint HPI - HPI Summary HPI Summary: Pt presents with c/o cough, nasal congestion, chest congestion and states he "knows when he has a chest infection". 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 Pt has been taking OTC cough AND COLD MEDICATION AND STATES THAT HE THINKS HE NEEDS AN ANTIBIOTIC. - History of Current Complaint Chief Complaint: UCGeneralIllness Stated Complaint: UPPER RESP COMPLAINT Time Seen by Provider: 06/27/19 12:10 Hx Obtained From: Patient Onset/Duration: Gradual Onset, Lasting Days - 7, Still Present, Worse Since - onset Timing: Constant Severity Initially: Mild Severity Currently: Moderate Pain Intensity: 5 Character: Cough: Productive - yellow/brown Aggravating Factors: Allergens, Exertion, Deep Breaths, Recumbent Position Alleviating Factors: Nothing Associated Signs And Symptoms: Positive: Chills, Wheezing, URI, Nasal Congestion Related History: Seasonal Allergies - Risk Factors Pulmonary Embolism Risk Factors: Negative Cardiac Risk Factors: Negative Pseudomonas Risk Factors: Chronic Lung Disease - byron Tuberculosis Risk Factors: Negative - Allergies/Home Medications Allergies/Adverse Reactions: Allergies Allergy/AdvReac Type Severity Reaction Status Date / Time No Known Allergies Allergy Verified 06/27/19 11:37 Home Medications: Home Medications Budesonide/Formote 160/4.5(NF) [Symbicort 160/4.5 (NF)] 2 puff INH BID 06/27/19 [History Confirmed 06/27/19] Ibuprofen TAB* [Motrin TAB* 600 MG] 600 mg PO Q6H PRN 06/27/19 [History Confirmed 06/27/19] PMH/Surg Hx/FS Hx/Imm Hx Previously Healthy: Yes Respiratory History: Asthma - Surgical History Surgical History: Yes Surgery Procedure, Year, and Place: SPINAL FUSION C5,6. 2 SINUS SX. FX R HAND. VASECTOMY - Family History Known Family History: Positive: Cardiac Disease - Social History Occupation: Employed Full-time Lives: With Family Alcohol Use: Daily Alcohol Amount: 1-2 alcoholic drinks Substance Use Type: None Smoking Status (MU): Former Smoker Have You Smoked in the Last Year: No When Did the Patient Quit Smoking/Using Tobacco: 1983 - Immunization History Most Recent Tetanus Shot: UTD per pt. Vaccination Up to Date: Yes Review of Systems All Other Systems Reviewed And Are Negative: Yes Constitutional: Positive: Fever - "low grade", Chills, Fatigue Eyes: Positive: Negative ENT: Positive: Sinus Congestion Respiratory: Positive: Shortness Of Breath, Cough Cardiovascular: Positive: Negative Gastrointestinal: Positive: Negative Genitourinary: Positive: Negative Motor: Positive: Negative Neurovascular: Positive: Negative Musculoskeletal: Positive: Negative Neurological: Positive: Headache Psychological: Positive: Negative Is Patient Immunocompromised?: No Physical Exam Triage Information Reviewed: Yes Appearance: Well-Appearing Vital Signs: Initial Vital Signs Temp 98.5 F 06/27/19 11:35 Pulse 64 06/27/19 11:35 Resp 14 06/27/19 11:35 BP 138/61 06/27/19 11:35 Pulse Ox 99 06/27/19 11:35 Vital Signs Reviewed: Yes Eye Exam: Normal ENT: Positive: Nasal congestion, Sinus tenderness Dental Exam: Normal Neck exam: Normal Respiratory Exam: Normal Respiratory: Positive: Normal breath sounds, No respiratory distress Cardiovascular Exam: Normal Musculoskeletal Exam: Normal Neurological Exam: Normal Psychological Exam: Normal Skin Exam: Normal Respiratory Course/Dx - Course Course Of Treatment: I discussed viral vs bacterial and pt requested antibiotics - Differential Dx/Diagnosis Differential Diagnosis/HQI/PQRI: Bronchitis, Exacerbation Of COPD Provider Diagnosis: Bronchitis Discharge ED - Sign-Out/Discharge Documenting (check all that apply): Patient Departure All imaging exams completed and their final reports reviewed: No Studies - Discharge Plan Condition: Stable Disposition: HOME Prescriptions: Azithromycin TAB* [Zithromax TAB (Z-JANETH) 250 mg #6 tabs] 2 tab PO .TODAY, THEN 1 DAILY #1 janeth Benzonatate CAP* [Tessalon 100 MG CAP*] 100 mg PO Q8H PRN #30 cap PRN Reason: Cough Patient Education Materials: Acute Bronchitis (ED) Referrals: Mauri Randhawa MD [Primary Care Provider] - - Billing Disposition and Condition Condition: STABLE Disposition: Home
== END 2019-06-27 12:29 | disposition home or self-care (01) ==
LOC: UCCORT 10:33
DX: J45.909 Unspecified asthma, uncomplicated (principal); R09.81 Nasal congestion; Z87.891 Personal history of nicotine dependence
CPT/HCPCS: 99212; G0463

== ENCOUNTER 2019-08-31 08:12 | Day surgery (SDC) | payer OTHER ==
[~2019-08-31 08:12] MED LIST: Buffered Lidocaine 1% SYRIN* 1 ML/SYRINGE INTRADERM ONE; Lactated Ringers 1000 ML Bag* 1,000 ML IV SCH
[2019-08-31] MEDS ORDERED: ceFAZolin 2 GM PREMIX in ORs 2 GM/50 ML BAG ONE (08:32)
[2019-08-31] MEDS ORDERED: Acetaminophen TAB* 325 MG PO ONE (08:39)
[2019-08-31] MEDS ORDERED: Acetaminophen TAB* 325 MG ONE (08:51)
[2019-08-31] MEDS ORDERED: Buffered Lidocaine 1% SYRIN* 1 ML/SYRINGE INTRADERM ONE (08:59)
[2019-08-31] MEDS ORDERED: Midazolam* 1 MG/ML 2 ML VIAL (2 MG) ONE (09:46)
[2019-08-31] MEDS ORDERED: fentaNYL* 50 MCG/ML 2 ML VIAL (100 MCG VIAL) ONE (09:47)
[2019-08-31] MEDS ORDERED: Propofol* 10 MG/ML 20 ML BTL ONE (09:47)
[2019-08-31] MEDS ORDERED: Bupivacaine 0.25% SDV PF* 10 ML VIAL INJ ONE (10:44)
[2019-08-31] MEDS ORDERED: Ketorolac INJ* 30 MG/ML 1 ML VIAL ONE (10:57)
[2019-08-31] MEDS ORDERED: Dexamethasone IV* 4 MG/ML 1 ML (4 MG) ONE (10:57)
[2019-08-31] MEDS ORDERED: Ondansetron INJ* 2 MG/ML VIAL ONE (10:57)
[2019-08-31] MEDS ORDERED: HYDROmorphone INJ1* 1 MG/ML SYRINGE ONE ×3 (10:57→12:10)
[2019-08-31] MEDS ORDERED: Betamethasone INJ* 6 MG/ML 5 ML VIAL (30 MG) ONE (11:03)
[2019-08-31] MEDS ORDERED: Lidocaine 1% MPF ** 5 ML VIAL ONE (11:03)
[2019-08-31] MEDS ORDERED: PROCHLORPERAZINE INJ 5 MG/ML 2 ML VIAL IV PRN (11:04)
[2019-08-31] MEDS ORDERED: Naloxone* 0.4 MG/ML 1 ML VIAL IV PRN (11:04)
[2019-08-31] MEDS ORDERED: oxyCODONE TAB* 5 MG TAB PO PRN (11:04)
[2019-08-31] MEDS ORDERED: diPHENhydraMINE IV* 50 MG/ML 1 ml VIAL (BENADRYL) IV PRN (11:04)
[2019-08-31] MEDS ORDERED: oxyCODONE TAB* 5 MG TAB ONE (12:09)
[2019-08-31] MEDS: HYDROmorphone INJ1* 1 MG/ML SYRINGE IV PRN ×2 (12:10→12:20)
[2019-08-31 12:56] VITALS: BP 157/77
--- NOTE | 2019-08-31 21:36 | OP ---
DATE OF OPERATION: 08/31/19 - [facility] DATE OF : 55 SURGEON: Michoacano Seaman MD MASTER CRAFTSMAN: PALLAVI Tierney. An fitness assistant was needed for the procedure to aid in positioning of the arm and retraction. ANESTHESIOLOGIST: Dr. Waite. ANESTHESIA: General. PRE-OP DIAGNOSES: 1. Left elbow chronic lateral epicondylitis. 2. Right ulnar-sided wrist pain. POST-OP DIAGNOSES: 1. Left elbow chronic lateral epicondylitis. 2. Right ulnar-sided wrist pain. OPERATIVE PROCEDURE: 1. Debridement of left elbow lateral epicondylitis with tendon repair. 2. Right wrist steroid injection. INDICATIONS: Isacc has the chronic lateral epicondylitis. Additionally, he has right ulnar-sided wrist pain. I talked about treatment options, risks, and benefits. He understands there is a chance of persistent pain despite doing a lateral epicondylitis release. He wishes to proceed. ESTIMATED BLOOD LOSS: 2 mL. COMPLICATIONS: None. FINDINGS: See above and below. DESCRIPTION OF PROCEDURE: Mr. Grossman was seen in the preoperative holding area. The correct site, side, and procedures were identified. We came back to the operating room where the arm was prepped and draped in the usual fashion. A time- out was performed. The arm was exsanguinated with the Esmarch and the tourniquet was inflated to 225 mmHg. I made an incision over the left elbow lateral epicondyle. Dissection was carried down. Full-thickness flaps were raised off the extensor fascia. The interval between the ECRL and the EDC was incised and that brought me down onto the ECRB tendon, which was degenerative. That was debrided up and I took the debridement right off the bone all the way down until I excised a portion of the radiocapitellar joint capsule with the debridement. I preserved the origin of the lateral ulnar collateral ligament. I went ahead and used the curette and the rongeur to roughen up the bone. Once I debrided all the degenerative tissue, I irrigated out the wound. The tendon was then repaired back with 0 Vicryl suture. At this point, everything was looking good. The wound was irrigated out. The skin was closed with a Monocryl suture and Steri-Strips. 0.25% Marcaine was infiltrated all about the operative area. He was placed in a long-arm splint with a lateral buttress and taken to the recovery room in stable condition. [id number]/[facility] #: [id number] MARY ANN
== END 2019-08-31 12:58 | disposition home or self-care (01) ==
LOC: OR 08:12
PROVIDERS: ATTEND Orthopaedic Surgery Hand Surgery
DX: M77.12 Lateral epicondylitis, left elbow (principal); M25.531 Pain in right wrist; M19.031 Primary osteoarthritis, right wrist; J45.909 Unspecified asthma, uncomplicated; Z87.891 Personal history of nicotine dependence; K21.9 Gastro-esophageal reflux disease without esophagitis; F41.9 Anxiety disorder, unspecified; E78.00 Pure hypercholesterolemia, unspecified
CPT/HCPCS: 88304; A9270-GY; J0690; J0702; J1100; J1170; J1885; J2250; J2405; J2704; J3010; J3490